=== PATIENT | female | born 1960 | race Hispanic/Latino ===

== ENCOUNTER 2017-02-24 16:06 | Inpatient (IN) | payer MEDICAID ==
--- NOTE | 2017-02-24 17:03 | ED PDOC ---
Arrival/HPI - General Chief Complaint: Shortness Of Breath Time Seen by Provider: 02/24/17 16:13 Historian: Patient - History of Present Illness Narrative History of Present Illness (Text): 02/24/17 16:59 A 56 year old female, whose past medical history includes asthma, COPD, diabetes , hypertension, hyperlipidemia, hypothyroidism and chronic pancreatitis, was sent into the emergency department by PMD for worsening shortness of breath over the past 3 days. Patient notes cough, non-bilious non-bloody vomiting and lightheadedness. Patient reports she was seen last month for asthmatic bronchitis and discharged on steroids. Patient notes a rash on left lower extremity and under left breast but denies any fever, chills, diarrhea, abdominal pain, urinary symptoms, chest pain, headache or any other complaints. PMD: Dr. Hernandez Time/Duration: Other (3 days) Symptom Course: Worsening Quality: Other Context: Home Past Medical History - Provider Review Nursing Documentation Reviewed: Yes - Infectious Disease Hx of Infectious Diseases: None - Tetanus Immunization Tetanus Immunization: Unknown - Cardiac Hx Cardiac Disorders: Yes Hx Hypertension: Yes - Pulmonary Hx Respiratory Disorders: Yes Hx Asthma: Yes Hx Bronchitis: Yes Hx Chronic Obstructive Pulmonary Disease (COPD): Yes - Neurological Hx Neurological Disorder: No - HEENT Hx HEENT Disorder: No - Renal Hx Renal Disorder: No (Pt states she has had problems with her kidneys lately.) - Endocrine/Metabolic Hx Endocrine Disorders: Yes Hx Diabetes Mellitus Type 2: Yes Hx Hyperthyroidism: Yes - Hematological/Oncological Hx Blood Disorders: No - Integumentary Hx Dermatological Disorder: No - Musculoskeletal/Rheumatological Hx Musculoskeletal Disorders: No - Gastrointestinal Hx Gastrointestinal Disorders: Yes (gastroparesis) Hx Pancreatitis: Yes (Chronic) - Genitourinary/Gynecological Hx Genitourinary Disorders: Yes (Fibroids) - Psychiatric Hx Psychophysiologic Disorder: Yes Hx Anxiety: Yes Hx Depression: Yes Hx Substance Use: No - Surgical History Hx Dilation and Curettage: Yes Other/Comment: 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 - Anesthesia Hx Anesthesia: Yes Hx Anesthesia Reactions: Yes Hx Malignant Hyperthermia: No - Suicidal Assessment Feels Threatened In Home Enviroment: No Family/Social History - Physician Review Nursing Documentation Reviewed: Yes Family/Social History: No Known Family HX Smoking Status: Never Smoked Hx Alcohol Use: No Hx Substance Use: No Hx Substance Use Treatment: No Allergies/Home Meds Allergies/Adverse Reactions: Allergies ketorolac tromethamine [From Toradol] Allergy (Mild, Verified 02/24/17 16:12) pruritis amoxicillin Allergy (Verified 02/24/17 16:12) ITCHING EGG Allergy (Verified 02/24/17 16:12) ITCHING gabapentin Allergy (Verified 02/24/17 16:12) ITCHING latex Allergy (Verified 02/24/17 16:12) RASH Sulfa (Sulfonamide Antibiotics) Allergy (Verified 02/24/17 16:12) ITCHING Home Medications: Home Meds Medication Instructions Recorded Confirmed Albuterol 0.083% [Albuterol 0.083% 3 ml IH Q6 PRN 10/31/12 02/24/17 Inhal Peggy (2.5 mg/3 ml) UD] Albuterol HFA [Ventolin HFA 90 0.09 mg IH Q6 PRN 10/31/12 02/24/17 mcg/actuation (8 g)] Insulin Glargine,Hum.rec.anlog 30 unit SC HS 10/31/12 02/24/17 [Lantus] Montelukast [Singulair] 10 mg PO DAILY 10/31/12 02/24/17 PARoxetine [Paxil] 30 mg PO DAILY 10/31/12 02/24/17 Insulin Human NPH/Reg [HumuLIN 30 units SC AC 01/04/13 02/24/17 70/30 (NPH/Reg)] Atenolol [Tenormin] 25 mg PO DAILY 07/23/16 02/24/17 Cetirizine HCl [Zyrtec] 10 mg PO DAILY 07/23/16 02/24/17 Ergocalciferol (Vitamin D2) 50,000 units PO .ONCE PER WEEK 07/23/16 02/24/17 [Vitamin D] Fluticasone/Salmeterol 500/50 1 inh INH BID 07/23/16 02/24/17 [Advair Diskus 500/50] Propylthiouracil 150 mg PO TID 07/23/16 02/24/17 Tiotropium [place] Inhaler 1 inh INH DAILY 07/23/16 02/24/17 [Spiriva Inhalation Handihaler Device] Lipase/Protease/Amylase [Creon Dr 12,000 mg PO TID 01/15/17 02/24/17 12,000 Units Capsule] Tiotropium [Spiriva] 1 cap INH DAILY 01/15/17 02/24/17 Review of Systems - Physician Review All systems were reviewed & negative as marked: Yes - Review of Systems Constitutional: absent: Fevers, Night Sweats Respiratory: SOB, Cough Cardiovascular: absent: Chest Pain Gastrointestinal: Vomiting. absent: Abdominal Pain, Diarrhea Genitourinary Female: absent: Dysuria, Frequency, Hematuria, Urine Output Changes Neurological: Other (lightheadedness). absent: Headache Physical Exam Vital Signs Reviewed: Yes Vital Signs Temp Pulse Resp BP Pulse Ox 02/24/17 19:26 95 H 20 131/52 L 98 02/24/17 17:15 75 18 112/62 98 02/24/17 16:47 97.8 F 75 18 103/66 95 02/24/17 16:21 97.7 F 92 H 19 160/98 H 95 02/24/17 16:15 18 Temperature: Afebrile Blood Pressure: Hypertensive Pulse: Tachycardic Respiratory Rate: Tachypneic Appearance: Positive for: Non-Toxic Pain Distress: None Mental Status: Positive for: Alert and Oriented X 3 - Systems Exam Head: Present: Atraumatic, Normocephalic Pupils: Present: PERRL Mouth: Present: Moist Mucous Membranes Pharnyx: Present: Normal. No: ERYTHEMA, EXUDATE Neck: Present: Normal Range of Motion Respiratory/Chest: Present: Wheezes (diffuse wheezing), Decreased Breath Sounds , Rhonchi (Scattered rhonchi), Tachypneic. No: Accessory Muscle Use Cardiovascular: Present: Regular Rate and Rhythm, Normal S1, S2. No: Murmurs Abdomen: Present: Normal Bowel Sounds. No: Tenderness, Distention, Peritoneal Signs Breast/Axillary: Present: Erythema (under left breast). No: Nipple Discharge, Swelling, Tender to Palpation Upper Extremity: Present: Normal Inspection. No: Cyanosis, Edema Lower Extremity: Present: NORMAL PULSES, Erythema (Mild erythema in left anterior tibial area), Temperature Abnormalties (Warmth noted in left anterior tibial area). No: Edema, CALF TENDERNESS, Tenderness, Swelling, Deformity, Neurovascularly Intact Neurological: Present: GCS=15, CN II-XII Intact, Speech Normal Skin: Present: Warm, Dry, Normal Color. No: Rashes Psychiatric: Present: Alert, Oriented x 3, Normal Insight, Normal Concentration Medical Decision Making ED Course and Treatment: 02/24/17 16:59 Impression: A 56 year old female with shortness of breath. Patient notes cough, vomiting, lightheadedness and rash in left lower extremity and under left breast. On exam , diminished breath sounds ands scattered rhonchi and wheezing, warmth and erythema in left anterior tibial area and under left breast. Differential Diagnosis included but are not limited to: COPD exacerbation vs pneumonia Plan: -- Chest xray -- Labs -- Blood culture -- Urinalysis -- Pepcid, Robitussin, Atrovent, Xopenex, Solumedrol and Zofran -- Reassess and disposition Prior Visits: Notes and results from previous visits were reviewed. Patient last seen in the ED on 01/15/17 for asthma exacerbation. Progress Notes: EKG shows NSR at 77 BPM with normal intervals, normal axis, no ST/T changes. Interpreted by me. 02/24/17 19:32 CXR: nad as read by me. Patient with noted history - receiving nebs and steroids with minimal improvement in the ED thus far - continues to have tachypnea and significant cough - will continue with nebs and observe further in the hospital. Will give abx for copd and add vanco for the cellulitis developing on the LLE. Case discussed with Dr. Hernandez who said to place on the hospitalist service. Case discussed with Dr. Bello. - Lab Interpretations Lab Results: 02/24/17 16:40 02/24/17 16:40 Lab Results 02/24/17 18:25: Urine Color Straw, Urine Appearance Sl cloudy, Urine pH 6.5, Ur Specific [place] <= 1.005, Urine Protein Negative, Urine Glucose (UA) >=1000, Urine Ketones 15 H, Urine Blood Trace-intact H, Urine Nitrate Negative, Urine Bilirubin Negative, Urine Urobilinogen 0.2, Ur Leukocyte Esterase Small H, Urine RBC 0 - 2, Urine WBC 5 - 10, Ur Epithelial Cells 0 - 2, Urine Bacteria Few 02/24/17 18:00: POC Glucose (mg/dL) 287 H 02/24/17 16:40: Sodium 135, Potassium 3.7, Chloride 100, Carbon Dioxide 23, Anion Gap 16, BUN 12, Creatinine 0.5, Est GFR ( Amer) > 60, Est GFR (Non- Af Amer) > 60, Random Glucose 320 H* D, Calcium 10.0, Magnesium 1.8, Total Bilirubin 0.6, AST 18, ALT 29, Alkaline Phosphatase 110, Lactate Dehydrogenase 425, Total Creatine Kinase 69, Troponin I < 0.01, NT-Pro-B Natriuret Pep 54.7, Total Protein 7.3, Albumin 4.3, Globulin 3.0, Albumin/Globulin Ratio 1.4, Lipase 69 02/24/17 16:40: WBC 5.6, RBC 5.00, Hgb 13.8, Hct 39.6, MCV 79.2 L, MCH 27.6, MCHC 34.8, RDW 13.2, Plt Count 186, MPV 11.1 H, Gran % 64.1, Lymph % (Auto) 29.4 , [place] % (Auto) 5.2, Eos % (Auto) 0.9 L, Baso % (Auto) 0.4, Gran # 3.56, Lymph # 1.6, [place] # 0.3, Eos # 0.1, Baso # 0.02 02/24/17 16:40: PT 10.1, INR 0.94, APTT 27.1 I have reviewed the lab results: Yes - RAD Interpretation Radiology Orders: 02/24/17 17:06 CHEST PORTABLE [RAD] Stat - Medication Orders Current Medication Orders: Levofloxacin/Dextrose (Levaquin 750mg) 750 mg in 150 mls @ 100 mls/hr IVPB STAT STA Stop: 02/24/17 20:27 Last Admin: 02/24/17 19:18 Dose: 100 mls/hr Vancomycin HCl 1 gm/ Sodium (Chloride) 250 mls @ 133.333 mls/hr IV STAT STA PRN Reason: Protocol Stop: 02/24/17 21:13 Discontinued Medications Famotidine (Pepcid) 20 mg IVP STAT STA Stop: 02/24/17 17:11 Last Admin: 02/24/17 17:25 Dose: 20 mg Guaifenesin (Robitussin) 400 mg PO ONCE STA Stop: 02/24/17 17:12 Last Admin: 02/24/17 17:25 Dose: 400 mg Sodium Chloride (Sodium Chloride 0.9%) 1,000 mls @ 999 mls/hr IV .Q1H1M STA Stop: 02/24/17 18:44 Last Admin: 02/24/17 18:06 Dose: 999 mls/hr Insulin Human Regular (Humulin R) 6 units IVP ONCE STA Stop: 02/24/17 17:45 Last Admin: 02/24/17 18:05 Dose: 6 units Ipratropium [place] (Atrovent) 0.5 mg IH STAT STA Stop: 02/24/17 17:12 Last Admin: 02/24/17 17:26 Dose: 0.5 mg Ipratropium [place] (Atrovent) 0.5 mg IH STAT STA Stop: 02/24/17 17:12 Last Admin: 02/24/17 17:41 Dose: 0.5 mg Levalbuterol HCl (Xopenex) 1.25 mg IH STAT STA Stop: 02/24/17 17:11 Last Admin: 02/24/17 17:57 Dose: 1.25 mg Levalbuterol HCl (Xopenex) 1.25 mg IH STAT STA Stop: 02/24/17 17:12 Last Admin: 02/24/17 18:05 Dose: 1.25 mg Levalbuterol HCl (Xopenex) 1.25 mg IH STAT STA Stop: 02/24/17 18:57 Last Admin: 02/24/17 19:07 Dose: 1.25 mg Methylprednisolone (Solu-Medrol) 125 mg IVP STAT STA Stop: 02/24/17 17:12 Last Admin: 02/24/17 17:25 Dose: 125 mg Ondansetron HCl (Zofran Inj) 4 mg IVP STAT STA Stop: 02/24/17 17:11 Last Admin: 02/24/17 17:25 Dose: 4 mg - Scribe Statement The provider has reviewed the documentation as recorded by the Michael Zamora Provider Scribe Attestation: All medical record entries made by the Scribe were at my direction and personally dictated by me. I have reviewed the chart and agree that the record accurately reflects my personal performance of the history, physical exam, medical decision making, and the department course for this patient. I have also personally directed, reviewed, and agree with the discharge instructions and disposition. Disposition/Present on Arrival - Present on Arrival Any Indicators Present on Arrival: Yes History of DVT/PE: No History of Uncontrolled Diabetes: Yes Urinary Catheter: No History of Decub. Ulcer: No History Surgical Site Infection Following: None - Disposition Have Diagnosis and Disposition been Completed?: Yes Diagnosis: Uncontrolled diabetes mellitus, Acute exacerbation of COPD with asthma, Cellulitis of left lower leg Disposition: HOSPITALIZED Disposition Time: 19:20 Patient Plan: Observation Condition: FAIR Discharge Instructions (ExitCare): Cellulitis (ED) Referrals: Radha Hernandez MD [Primary Care Provider] - Follow up with primary
[2017-02-24] MEDS ORDERED: Levalbuterol 1.25 MG/3 ML Inhal Soln UD IH STA ×3 (17:10→18:56)
[2017-02-24] MEDS ORDERED: guaiFENesin 200 mg/10 ml Syrup UD PO STA (17:11)
[2017-02-24] MEDS ORDERED: Ipratropium 0.02% Inhal Soln (0.5 mg/2.5 ml) UD IH STA ×2 (17:11)
[2017-02-24 17:14] LABS: ADD MANUAL DIFF? NO
[2017-02-24 17:25] LABS: BASO # 0.02 K/mm3 (0.0-2.0); BASO % 0.4 % (0.0-3.0); EOS # 0.1 (0.0-0.7); EOS % 0.9 % (1.5-5.0); GRAN # 3.56 (1.4-6.5); GRAN % 64.1 % (50.0-68.0); HEMATOCRIT 39.6 % (36.0-48.0); LYMPH # 1.6 (1.2-3.4); LYMPH % 29.4 % (22.0-35.0); MEAN CELL VOLUME 79.2 fL (80.0-105.0); MEAN CORPUSCULAR HEMOGLOBIN 27.6 pg (25.0-35.0); MEAN CORPUSCULAR HGB CONC 34.8 g/dl (31.0-37.0); MEAN PLATELET VOLUME 11.1 fl (7.0-11.0); MONO # 0.3 (0.1-0.6); MONO % 5.2 % (1.0-6.0); PLATELET COUNT 186 10^3/uL (120.0-450.0); RED CELL DISTRIBUTION WIDTH 13.2 % (11.5-14.5); WHITE BLOOD COUNT 5.6 10^3/ul (4.5-11.0)
[2017-02-24 17:35] LABS: INR 0.94 (0.93-1.08); PARTIAL THROMBOPLASTIN TIME 27.1 Seconds (23.7-30.8)
[2017-02-24 17:39] LABS: ALB/GLOB RATIO 1.4 (1.1-1.8); ALKALINE PHOSPHATASE 110 U/L (38-133); ALT/SGPT 29 U/L (7-56); AST/SGOT 18 U/L (15-39); BILIRUBIN,TOTAL 0.6 mg/dL (0.2-1.3); BLOOD UREA NITROGEN 12 mg/dL (7-21); CARBON DIOXIDE 23 mmol/L (21-33); CHLORIDE 100 mmol/L (98-107); GFR AFRICAN-AMERICAN > 60; LIPASE 69 U/L (23-300); MAGNESIUM 1.8 mg/dL (1.7-2.2); POTASSIUM 3.7 mmol/L (3.6-5.0); SODIUM 135 mmol/L (132-148); TOTAL PROTEIN 7.3 g/dL (5.8-8.3)
[2017-02-24 17:44] LABS: GLUCOSE,RANDOM 320 mg/dL (70-110)
[2017-02-24] MEDS ORDERED: Insulin Regular 1 UNITS/0.01 ML ML IVP STA (17:44)
[2017-02-24] MEDS ORDERED: Sodium Chloride 0.9% 1,000 ML IV STA (17:44)
[2017-02-24 17:51] LABS: TROPONIN I < 0.01 ng/mL
[2017-02-24 18:55] LABS: PH,URINE 6.5 (4.7-8.0); URINE BILIRUBIN NEGATIVE (NEGATIVE); URINE BLOOD TRACE-INTACT (NEGATIVE); URINE GLUCOSE (UA) >=1000 mg/dL (NEGATIVE); URINE KETONE 15 mg/dL (NEGATIVE); URINE LEUKOCYTE ESTERASE SMALL Leu/uL (NEGATIVE); URINE PROTEIN NEGATIVE mg/dL (<30 mg/dL); URINE UROBILINOGEN 0.2 E.U./dL (<1 E.U./dL)
[2017-02-24 18:56] LABS: URINE APPEARANCE SL CLOUDY (CLEAR); URINE COLOR STRAW (YELLOW)
[2017-02-24] MEDS ORDERED: levoFLOXacin 750 mg in D5W 750 MG/150 ML BAG IVPB STA (18:58)
[2017-02-24 19:01] LABS: URINE RBC 0 - 2 /hpf (0-2)
[2017-02-24 19:02] LABS: URINE BACTERIA FEW (NEG); URINE EPITHELIAL CELLS 0 - 2 /hpf (0-5)
[2017-02-24] MEDS ORDERED: Oxycodone/Acetaminophen 5/325 mg Tab PO PRN (21:28)
--- NOTE | 2017-02-24 21:57 | CP.PCM.HP ---
<Glory Carballo - Last Filed: 02/24/17 22:06> History of Present Illness - History of Present Illness History of Present Illness: PGY-1 H&P 56 yo female with PMH of HTN, hypercholesterolemia, DM, Asthma, COPD, hypothyroidism, anxiety, depression and chronic pancreatitis present to ED with SOB and cough. Patient reports that her dry cough is chronic secondary to COPD however it has been progressively worsening along with her sob. Patient states that over the past month she has had bronchitis. She previously saw her PMD and was given abx and oral steroids twice before. She states that the medication helped somewhat however after completing the course her symptoms would return. Patient states that she has had previous episodes of similar symptoms and was treated for asthma bronchitis outpatient. Patient states that 3 days ago she also started to have med sternal chest pain associated her cough. She last stress test was a few years ago and it was normal. Patient also reports lightheadedness that began earlier today, she has had similar symptom when her BP was elevated. Patient states that today she had to episodes of vomiting/dry hiving. She states that her left leg become red and swollen, she states that she is prone to cellulitis in that leg. Patient also reports fungal rash under her left breast. PMH: HTN, hypercholesterolemia, DM, Asthma, COPD, hypothyroidism, anxiety, depression and chronic pancreatitis PSH: right parotid gland tumor removal Social hx: denies tobacco, alcohol, ilicits PMD: Dr. Mary Falcon: Dr Daniel Present on Admission - Present on Admission Any Indicators Present on Admission: No Review of Systems - Constitutional Constitutional: Chills, Weight Gain. absent: Fever, Headache - EENT Nose/Mouth/Throat: Nasal Discharge, Sinus Pressure (seasonal allergies). absent : Sore Throat - Cardiovascular Cardiovascular: Chest Pain, Diaphoresis, Dyspnea, Dyspnea on Exertion, Lightheadedness, Palpitations. absent: Edema, Syncope - Respiratory Respiratory: Cough, Dyspnea, Dyspnea on Exertion. absent: Hemoptysis, Wheezing - Gastrointestinal Gastrointestinal: Constipation, Nausea, Vomiting. absent: Abdominal Pain, Diarrhea, Hematemesis, Hematochezia - Genitourinary Genitourinary: absent: Difficulty Urinating, Dysuria, Urinary Incontinence - Musculoskeletal Musculoskeletal: absent: Arthralgias, Muscle Weakness, Myalgias, Numbness, Stiffness - Integumentary Integumentary: Rash, Swelling (left lower leg ). absent: Skin Ulcer, Wounds - Neurological Neurological: absent: Dizziness, Numbness, Headaches, Syncope, Tingling, Weakness - Hematologic/Lymphatic Hematologic: absent: Easy Bleeding, Easy Bruising Past Patient History - Infectious Disease Hx of Infectious Diseases: None - Tetanus Immunizations Tetanus Immunization: Unknown - Past Social History Smoking Status: Never Smoked Alcohol: None Drugs: Denies - CARDIAC Hx Cardiac Disorders: Yes Hx Hypertension: Yes - PULMONARY Hx Respiratory Disorders: Yes Hx Asthma: Yes Hx Bronchitis: Yes Hx Chronic Obstructive Pulmonary Disease (COPD): Yes - NEUROLOGICAL Hx Neurological Disorder: No - HEENT Hx HEENT Problems: No - RENAL Hx Chronic Kidney Disease: No (Pt states she has had problems with her kidneys lately.) - ENDOCRINE/METABOLIC Hx Endocrine Disorders: Yes Hx Diabetes Mellitus Type 2: Yes Hx Hyperthyroidism: Yes - HEMATOLOGICAL/ONCOLOGICAL Hx Blood Disorders: No - INTEGUMENTARY Hx Dermatological Problems: No - MUSCULOSKELETAL/RHEUMATOLOGICAL Hx Musculoskeletal Disorders: No - GASTROINTESTINAL Hx Gastrointestinal Disorders: Yes (gastroparesis) Hx Pancreatitis: Yes (Chronic) - GENITOURINARY/GYNECOLOGICAL Hx Genitourinary Disorders: Yes (Fibroids) - PSYCHIATRIC Hx Psychophysiologic Disorder: Yes Hx Anxiety: Yes Hx Depression: Yes Hx Substance Use: No - SURGICAL HISTORY Hx Dilation and Curettage: Yes Other/Comment: 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 - ANESTHESIA Hx Anesthesia: Yes Hx Anesthesia Reactions: Yes Hx Malignant Hyperthermia: No Meds Allergies/Adverse Reactions: Allergies Allergy/AdvReac Type Severity Reaction Status Date / Time ketorolac tromethamine Allergy Mild pruritis Verified 02/24/17 16:12 [From Toradol] amoxicillin Allergy ITCHING Verified 02/24/17 16:12 EGG Allergy ITCHING Verified 02/24/17 16:12 gabapentin Allergy ITCHING Verified 02/24/17 16:12 latex Allergy RASH Verified 02/24/17 16:12 Sulfa (Sulfonamide Allergy ITCHING Verified 02/24/17 16:12 Antibiotics) Physical Exam - Constitutional Appears: Well, No Acute Distress - Head Exam Head Exam: ATRAUMATIC, NORMOCEPHALIC - Eye Exam Eye Exam: EOMI, Normal appearance - ENT Exam ENT Exam: Mucous Membranes Moist - Respiratory Exam Respiratory Exam: Chest Wall Tenderness, Clear to Auscultation Bilateral, NORMAL BREATHING PATTERN. absent: Rales, Rhonchi, Wheezes, Respiratory Distress Additional comments: dry cough - Cardiovascular Exam Cardiovascular Exam: REGULAR RHYTHM, +S1, +S2. absent: Tachycardia, Diastolic murmur, Systolic Murmur - GI/Abdominal Exam GI & Abdominal Exam: Normal Bowel Sounds, Soft. absent: Distended, Firm, Guarding, Tenderness - Extremities Exam Additional comments: tenderness to palpitation, erythema and swelling at anterior aspect of left lower extremity - Neurological Exam Neurological exam: Alert, Oriented x3 - Skin Skin Exam: Dry, Intact, Normal Color, Warm Results - Vital Signs Recent Vital Signs: Last Vital Signs Temp 97.8 F 02/24/17 16:47 Pulse 95 H 02/24/17 19:26 Resp 20 02/24/17 19:26 BP 131/52 L 02/24/17 19:26 Pulse Ox 98 02/24/17 19:26 - Labs Result Diagrams: 02/24/17 16:40 02/24/17 16:40 Assessment & Plan - Assessment and Plan (Free Text) Assessment: 56 yo female with PMH of HTN, hypercholesterolemia, DM, Asthma, COPD, hypothyroidism, anxiety, depression and chronic pancreatitis present to ED with SOB and cough due to COPD exacerbation, chest pain, possible cellulitis n fungal infection. Plan: 1. COPD exacerbation - solu-medrol q8 - abx Zithromax and Levaquin - Duonebs q4 oliverio and q2 prn - robitussin PRN - cont home medications 2. chest pain - reproducible to palpitation - repeat trops - cont to monitor on remote tele 3. fungal infection - under left breast - clotrimazole cream BID 4. cellulitis of left foot - afebrile without leukocytosis - cont Levaquin and Zithromax 5. DM - cont home insulin - Insulin 30 units AC, insulin glargine 30 units HS, ISSS- med ACHS 6. HTN - cont home medications HCTZ and atenolol - cont to monitor 7. chronic pancreatitis - lipase wnl - cont pancreatic enzymes 8. anxiety - cont home med paxil ppx GI- pepcid DVT- lovenox <Raghav Bello - Last Filed: 02/25/17 06:10> Results - Vital Signs Recent Vital Signs: Last Vital Signs Temp 98.5 F 02/24/17 21:26 Pulse 99 H 02/25/17 06:00 Resp 23 02/24/17 21:26 BP 146/82 02/24/17 21:26 Pulse Ox 98 02/24/17 19:26 - Labs Result Diagrams: 02/24/17 16:40 02/24/17 16:40 Labs: Laboratory Results - last 24 hr 02/24/17 21:54 POC Glucose (mg/dL) 355 H Attending/Attestation - Attestation I have personally seen and examined this patient.: Yes I have fully participated in the care of the patient.: Yes I have reviewed all pertinent clinical information: Yes Notes (Text): 02/25/17 06:08 Patient was seen when she was in the ER. Agree with history physical examination, assessment and plan. This 56 year old white woman with history of diabetic neuropathy, cataract, tinitus, left parotidectomy, facia palsy, sinusitis, hyperthyroidism , being on PtU, COPD, asthma, pneumonia, palpitations, anemia, multiple blood transfusions,UTI's , Hypertension, DM II, hypercholesterolemia, chronic pancreatits, comes in with complaints of sob, chest pain , cough, lightheadedness, palpitations of 2- 3 weeks duration, has swelling ,redness in left leg, has family history of DM, thyroid and lung cancer.
[2017-02-24] MEDS ORDERED: INSULIN GLARGINE HUM REC ANLOG 30 UNIT SC SCH (22:00)
[2017-02-24] MEDS ORDERED: Oxycodone/Acetaminophen 5/325 mg Tab PO SCH (22:00)
[2017-02-24] MEDS ORDERED: Insulin Reg-MEDIUM-Coverage SC SCH (22:00)
[2017-02-24] MEDS: Insulin Detemir 100 units/ml Vial (Levemir) SC SCH (22:02)
[2017-02-24] MEDS: Promethazine 6.25 MG/5 ML CUP PO PRN (22:03)
[2017-02-24] MEDS: MethylPREDNISolone 40 mg Vial IVP SCH (22:03)
--- NOTE | 2017-02-24 22:07 | CARD ---
APPROVED REPORT EKG Measurement Heart [id number] <Conclusion> Normal sinus rhythm Normal ECG
[2017-02-24] MEDS: Albuterol-Ipratrop 3 mg / 0.5 (3 ml) UD IH SCH (23:07)
[2017-02-24 23:13] VITALS: BMI 47.0
[2017-02-24] MEDS: Clotrimazole 1% Cream(30 gm) TOP SCH (23:16)
[2017-02-25] MEDS: Albuterol-Ipratrop 3 mg / 0.5 (3 ml) UD IH PRN ×3 (02:25→22:01)
[2017-02-25] MEDS: guaiFENesin 200 mg/10 ml Syrup UD PO PRN ×3 (02:33→22:11)
[2017-02-25] MEDS ORDERED: Insulin Regular 1 UNITS/0.01 ML ML SC ONE (03:22)
[2017-02-25] MEDS: Albuterol-Ipratrop 3 mg / 0.5 (3 ml) UD IH SCH ×6 (04:28→23:07)
[2017-02-25] MEDS: MethylPREDNISolone 40 mg Vial IVP SCH (05:58)
[2017-02-25] MEDS: Promethazine 6.25 MG/5 ML CUP PO PRN ×2 (05:58→21:52)
[2017-02-25] MEDS ORDERED: Insulin Human NPH/Reg 70/30 Vial(3 ml) SC SCH (07:30)
[2017-02-25 07:39] LABS: ADD MANUAL DIFF? NO
[2017-02-25] MEDS: Budesonide 0.5 mg/2 ml Inhal Susp UD IH SCH ×2 (07:50→19:14)
[2017-02-25] MEDS: Arformoterol 15 mcg/2 ml Inh Sol IH SCH ×2 (07:50→19:14)
[2017-02-25 07:57] LABS: ALB/GLOB RATIO 1.3 (1.1-1.8); ALKALINE PHOSPHATASE 88 U/L (38-133); ALT/SGPT 31 U/L (7-56); AST/SGOT 15 U/L (15-39); BILIRUBIN,TOTAL 0.4 mg/dL (0.2-1.3); BLOOD UREA NITROGEN 11 mg/dL (7-21); CALCIUM 9.4 mg/dL (8.4-10.5); CARBON DIOXIDE 24 mmol/L (21-33); CHLORIDE 102 mmol/L (98-107); GFR AFRICAN-AMERICAN > 60; POTASSIUM 3.7 mmol/L (3.6-5.0); SODIUM 137 mmol/L (132-148); TOTAL PROTEIN 6.6 g/dL (5.8-8.3)
[2017-02-25 07:58] LABS: GRAN % 89.8 % (50.0-68.0); LYMPH # 0.6 (1.2-3.4); LYMPH % 6.9 % (22.0-35.0); MEAN CELL VOLUME 79.4 fL (80.0-105.0); MEAN CORPUSCULAR HEMOGLOBIN 27.7 pg (25.0-35.0); MEAN CORPUSCULAR HGB CONC 34.9 g/dl (31.0-37.0); MEAN PLATELET VOLUME 10.8 fl (7.0-11.0); MONO # 0.3 (0.1-0.6); MONO % 3.3 % (1.0-6.0); PLATELET COUNT 167 10^3/uL (120.0-450.0); RED CELL DISTRIBUTION WIDTH 13.3 % (11.5-14.5); WHITE BLOOD COUNT 8.2 10^3/ul (4.5-11.0)
[2017-02-25 08:02] LABS: GLUCOSE,RANDOM 327 mg/dL (70-110)
--- NOTE | 2017-02-25 08:18 | RAD ---
HISTORY: Shortness of breath COMPARISON: 01/15/2017 FINDINGS: LUNGS: The lungs are well inflated and clear. PLEURA: No significant pleural effusion identified, no pneumothorax apparent. CARDIOVASCULAR: Normal. OSSEOUS STRUCTURES: No significant abnormalities. VISUALIZED UPPER ABDOMEN: Normal. OTHER FINDINGS: None. IMPRESSION: No active pulmonary disease.
[2017-02-25 08:19] LABS: TROPONIN I < 0.01 ng/mL
[2017-02-25] MEDS ORDERED: Fluticasone-Salmeterol 500-50mcg Diskus INH SCH (10:00)
[2017-02-25] MEDS ORDERED: Tiotropium 18 mcg Cap For Inhalation INH SCH (10:00)
[2017-02-25] MEDS ORDERED: HYDROCHLOROTHIAZIDE 12.5 MG PO SCH (10:00)
[2017-02-25] MEDS ORDERED: Azithromycin 500MG/NS 250ml 500 MG/250 ML BAG IVPB SCH (10:00)
[2017-02-25] MEDS: Enoxaparin 40 mg Syringe SC SCH (10:28)
[2017-02-25] MEDS: Insulin Detemir 100 units/ml Vial (Levemir) SC SCH ×2 (10:29→21:39)
[2017-02-25] MEDS: LIPASE PO SCH ×3 (10:30→17:14)
[2017-02-25] MEDS: levoFLOXacin 750 mg in D5W 750 MG/150 ML BAG IVPB SCH (10:30)
[2017-02-25] MEDS: AMYLASE PO SCH ×3 (10:30→17:14)
[2017-02-25] MEDS: guaiFENesin-DM 600-30 mg ER Tab PO SCH ×2 (10:30→17:08)
[2017-02-25] MEDS: PROTEASE PO SCH ×3 (10:30→17:14)
[2017-02-25] MEDS: Clotrimazole 1% Cream(30 gm) TOP SCH ×2 (10:30→17:08)
[2017-02-25] MEDS: [UNRECOGNIZED DRUG - OTHER] PO SCH ×3 (10:30→17:14)
--- NOTE | 2017-02-25 11:36 | CP.PCM.PN ---
<JimboMelvi - Last Filed: 02/25/17 16:24> Subjective - Date & Time of Evaluation Date of Evaluation: 02/25/17 Time of Evaluation: 08:50 - Subjective Subjective: Pt seen and evaluated at bedside. Reports no change in SOB but no chest pain. Denies N/V, abd pain, urinary symptoms. Afebrile overnight. Objective - Vital Signs/Intake and Output Vital Signs (last 24 hours): Temp Pulse Resp BP Pulse Ox 98 F 98 H 19 141/77 98 02/25/17 07:44 02/25/17 07:44 02/25/17 07:44 02/25/17 07:44 02/25/17 07:44 - Medications Medications: Current Medications Albuterol/Ipratropium (Duoneb 3 Mg/0.5 Mg (3 Ml) Ud) 3 ml IH Q2 PRN PRN Reason: Shortness of Breath Last Admin: 02/25/17 02:25 Dose: 3 ml Albuterol/Ipratropium (Duoneb 3 Mg/0.5 Mg (3 Ml) Ud) 3 ml IH [id number] [facility] Last Admin: 02/25/17 11:07 Dose: 3 ml Arformoterol Tartrate (Brovana) 15 mcg IH [id number] [facility] Last Admin: 02/25/17 07:50 Dose: 15 mcg Atenolol (Tenormin) 25 mg PO DAILY [facility] Last Admin: 02/25/17 10:29 Dose: 25 mg Atorvastatin Calcium (Lipitor) 20 mg PO DIN [facility] Budesonide (Pulmicort Respules) 1 mg IH [id number] [facility] Last Admin: 02/25/17 07:50 Dose: 1 mg Clotrimazole (Lotrimin 1%) 1 gm TOP BID [facility] Last Admin: 02/25/17 10:30 Dose: 1 gm Enoxaparin Sodium (Lovenox) 40 mg SC DAILY [facility] PRN Reason: Protocol Last Admin: 02/25/17 10:28 Dose: 40 mg Ergocalciferol (Drisdol 50,000 Intl Units Cap) 1 cap PO FRI OLIVERIO Famotidine (Pepcid) 20 mg PO 1000,2200 [facility] Last Admin: 02/25/17 10:30 Dose: 20 mg Guaifenesin (Robitussin) 200 mg PO Q4H PRN PRN Reason: Cough and congestion Last Admin: 02/25/17 02:33 Dose: 200 mg Guaifenesin/Dextromethorphan (Mucinex-Dm 600-30 Mg) 1 tab PO BID [facility] Last Admin: 02/25/17 10:30 Dose: 1 tab Hydrochlorothiazide (Microzide) 12.5 mg PO DAILY [facility] Last Admin: 02/25/17 10:30 Dose: 12.5 mg Levofloxacin/Dextrose (Levaquin 750mg) 750 mg in 150 mls @ 100 mls/hr IVPB DAILY [facility] Last Admin: 02/25/17 10:30 Dose: 100 mls/hr Insulin Detemir (Levemir) 15 unit SC AMHS [facility] Last Admin: 02/25/17 10:29 Dose: 15 unit Insulin Human Regular (Humulin R High) 0 units SC ACHS [facility] PRN Reason: Protocol Loratadine (Claritin) 10 mg PO DAILY [facility] Last Admin: 02/25/17 10:29 Dose: 10 mg Methylprednisolone (Solu-Medrol) 40 mg IVP DAILY [facility] Montelukast Sodium (Singulair) 10 mg PO DAILY [facility] Last Admin: 02/25/17 10:29 Dose: 10 mg Non-Formulary Medication (Lipase/Protease/Amylase [Creon Dr 12,000 Units Capsule ]) 12,000 mg PO TID [facility] Last Admin: 02/25/17 10:30 Dose: Not Given Oxycodone/Acetaminophen (Percocet 5/325 Mg Tab) 1 tab PO Q8 PRN PRN Reason: Pain, severe (8-10) Stop: 02/27/17 22:01 Paroxetine HCl (Paxil) 30 mg PO DAILY [facility] Last Admin: 02/25/17 10:38 Dose: 30 mg Promethazine HCl (Phenergan Syrup) 6.25 mg PO TID PRN PRN Reason: Cough Last Admin: 02/25/17 05:58 Dose: 6.25 mg Propylthiouracil (Propylthiouracil) 150 mg PO TID [facility] Last Admin: 02/25/17 10:38 Dose: 150 mg Tiotropium [place] (Spiriva) 1,000 mcg INH DAILY [facility] Last Admin: 02/25/17 10:39 Dose: 1,000 mcg - Labs Labs: PT 10.1 Seconds (9.9-11.8) 02/24/17 16:40 INR 0.94 (0.93-1.08) 02/24/17 16:40 APTT 27.1 Seconds (23.7-30.8) 02/24/17 16:40 - Constitutional Appears: Non-toxic, No Acute Distress - Head Exam Head Exam: ATRAUMATIC, NORMOCEPHALIC - Eye Exam Eye Exam: EOMI, Normal appearance - Respiratory Exam Respiratory Exam: Clear to Ausculation Bilateral. absent: Wheezes - Cardiovascular Exam Cardiovascular Exam: Tachycardia, +S1, +S2 - GI/Abdominal Exam GI & Abdominal Exam: Soft. absent: Tenderness - Exam External exam: absent: Ecchymosis, Erythema - Extremities Exam Extremities Exam: Pedal Edema. absent: Tenderness - Neurological Exam Neurological Exam: Alert, Awake, Oriented x3 - Skin Skin Exam: Normal Color, Warm Additional comments: Erythema on Left chest and L LE Assessment and Plan - Assessment and Plan (Free Text) Plan: 56 yo female with PMH of HTN, hypercholesterolemia, DM, Asthma, COPD, hypothyroidism, anxiety, depression and chronic pancreatitis present to ED with SOB and cough due to COPD exacerbation, chest pain, possible cellulitis n fungal infection. Plan: 1. COPD exacerbation - solu-medrol 40 qd - abx Levaquin - Duonebs q4 oliverio and q2 prn - robitussin PRN - cont home medications 2. chest pain - reproducible to palpitation - troponin negative x 2 - cont to monitor on remote tele -ECHO pending 3. fungal infection - under left breast - clotrimazole cream BID 4. cellulitis of left foot - afebrile without leukocytosis - cont Levaquin -venous Doppler ordered 5. DM - cont home insulin - Insulin 30 units AC, insulin glargine 30 units HS, ISSS- high ACHS 6. HTN - cont home medications HCTZ and atenolol - cont to monitor 7. chronic pancreatitis - lipase wnl - cont pancreatic enzymes 8. anxiety - cont home med paxil ppx GI- pepcid DVT- lovenox <Maureen NEELY,Marla - Last Filed: 02/25/17 17:55> Objective - Vital Signs/Intake and Output Vital Signs (last 24 hours): Temp Pulse Resp BP Pulse Ox 98.4 F 89 20 143/82 93 L 02/25/17 16:45 02/25/17 16:45 02/25/17 16:45 02/25/17 16:45 02/25/17 16:45 Intake and Output: 02/25/17 02/25/17 06:59 18:59 Intake Total 700 Balance 700 - Medications Medications: Current Medications Albuterol/Ipratropium (Duoneb 3 Mg/0.5 Mg (3 Ml) Ud) 3 ml IH Q2 PRN PRN Reason: Shortness of Breath Last Admin: 02/25/17 17:32 Dose: 3 ml Albuterol/Ipratropium (Duoneb 3 Mg/0.5 Mg (3 Ml) Ud) 3 ml IH [id number] [facility] Last Admin: 02/25/17 15:53 Dose: 3 ml Arformoterol Tartrate (Brovana) 15 mcg IH [id number] [facility] Last Admin: 02/25/17 07:50 Dose: 15 mcg Atenolol (Tenormin) 25 mg PO DAILY [facility] Last Admin: 02/25/17 10:29 Dose: 25 mg Atorvastatin Calcium (Lipitor) 20 mg PO DIN [facility] Last Admin: 02/25/17 17:08 Dose: 20 mg Budesonide (Pulmicort Respules) 1 mg IH [id number] [facility] Last Admin: 02/25/17 07:50 Dose: 1 mg Clotrimazole (Lotrimin 1%) 1 gm TOP BID [facility] Last Admin: 02/25/17 17:08 Dose: 1 gm Enoxaparin Sodium (Lovenox) 40 mg SC DAILY [facility] PRN Reason: Protocol Last Admin: 02/25/17 10:28 Dose: 40 mg Ergocalciferol (Drisdol 50,000 Intl Units Cap) 1 cap PO FRI [facility] Famotidine (Pepcid) 20 mg PO 1000,2200 [facility] Last Admin: 02/25/17 10:30 Dose: 20 mg Guaifenesin (Robitussin) 200 mg PO Q4H PRN PRN Reason: Cough and congestion Last Admin: 02/25/17 17:25 Dose: 200 mg Guaifenesin/Dextromethorphan (Mucinex-Dm 600-30 Mg) 1 tab PO BID [facility] Last Admin: 02/25/17 17:08 Dose: 1 tab Hydrochlorothiazide (Microzide) 12.5 mg PO DAILY [facility] Last Admin: 02/25/17 10:30 Dose: 12.5 mg Levofloxacin/Dextrose (Levaquin 750mg) 750 mg in 150 mls @ 100 mls/hr IVPB DAILY [facility] Last Admin: 02/25/17 10:30 Dose: 100 mls/hr Insulin Detemir (Levemir) 15 unit SC AMHS [facility] Last Admin: 02/25/17 10:29 Dose: 15 unit Insulin Human Regular (Humulin R High) [address] [facility] PRN Reason: Protocol Last Admin: 02/25/17 17:08 Dose: 10 units Loratadine (Claritin) 10 mg PO DAILY [facility] Last Admin: 02/25/17 10:29 Dose: 10 mg Methylprednisolone (Solu-Medrol) 40 mg IVP DAILY [facility] Montelukast Sodium (Singulair) 10 mg PO DAILY [facility] Last Admin: 02/25/17 10:29 Dose: 10 mg Non-Formulary Medication (Lipase/Protease/Amylase [Creon Dr 12,000 Units Capsule ]) 12,000 mg PO TID [facility] Last Admin: 02/25/17 17:14 Dose: Not Given Oxycodone/Acetaminophen (Percocet 5/325 Mg Tab) 1 tab PO Q8 PRN PRN Reason: Pain, severe (8-10) Stop: 02/27/17 22:01 Paroxetine HCl (Paxil) 30 mg PO DAILY [facility] Last Admin: 02/25/17 10:38 Dose: 30 mg Promethazine HCl (Phenergan Syrup) 6.25 mg PO TID PRN PRN Reason: Cough Last Admin: 02/25/17 05:58 Dose: 6.25 mg Propylthiouracil (Propylthiouracil) 150 mg PO TID [facility] Last Admin: 02/25/17 17:09 Dose: Not Given Tiotropium [place] (Spiriva) 1,000 mcg INH DAILY [facility] Last Admin: 02/25/17 10:39 Dose: 1,000 mcg - Labs Labs: PT 10.1 Seconds (9.9-11.8) 02/24/17 16:40 INR 0.94 (0.93-1.08) 02/24/17 16:40 APTT 27.1 Seconds (23.7-30.8) 02/24/17 16:40 Attending/Attestation - Attestation I have personally seen and examined this patient.: Yes I have fully participated in the care of the patient.: Yes I have reviewed all pertinent clinical information, including history, physical exam and plan: Yes Notes (Text): 02/25/17 17:52 Patient was seen and examined with medical collector .Agreed with resident assessment and plan. 56 yo female with PMH of HTN, hyperlipidemia , DM, Asthma, COPD, hypothyroidism , anxiety, depression and chronic pancreatitis was admitted with worsening cough , dyspnea and whezzing due to COPD exacerbation, failed out patient treatment for COPD, is feeling better today, will decrease metylprednisolon dose to 40 mg IVPB daily.Patient blood sugar is high due to steroid.Patient also has leg edema, will get 2D echo to rule out Pulmonary HTN. Management plan was discussed in detail with patient Education was provided.
[2017-02-25] MEDS: Insulin Reg-HIGH-Coverage SC SCH ×2 (12:14→17:08)
[2017-02-25] MEDS ORDERED: Non Formulary Medication (Simvastatin [Simvastatin] 40 MG) PO SCH (16:30)
--- NOTE | 2017-02-25 18:33 | US ---
HISTORY: Leg pain and swelling. Evaluate for DVT PHYSICIAN(S): Hamlet Cook MD. TECHNIQUE: Duplex sonography and color-flow Doppler with graded compression were used to evaluate the deep venous systems of both lower extremities. FINDINGS: The visualized deep venous systems of both lower extremities are sonographically normal and compressible. Normal wave forms and augmentation are seen. There is no sonographic evidence for deep venous thrombosis in the visualized segments of both lower extremities. IMPRESSION: No sonographic evidence for deep venous thrombosis in the visualized segments of both lower extremities.
[2017-02-26] MEDS: Albuterol-Ipratrop 3 mg / 0.5 (3 ml) UD IH PRN (01:04)
[2017-02-26] MEDS: Insulin Reg-HIGH-Coverage SC SCH ×6 (01:18→21:54)
[2017-02-26] MEDS: guaiFENesin 200 mg/10 ml Syrup UD PO PRN (02:00)
[2017-02-26] MEDS: Albuterol-Ipratrop 3 mg / 0.5 (3 ml) UD IH SCH ×5 (03:30→19:36)
[2017-02-26] MEDS: Promethazine 6.25 MG/5 ML CUP PO PRN (06:14)
[2017-02-26] MEDS: Arformoterol 15 mcg/2 ml Inh Sol IH SCH ×2 (07:04→19:35)
[2017-02-26] MEDS: Budesonide 0.5 mg/2 ml Inhal Susp UD IH SCH ×2 (07:04→19:36)
[2017-02-26 07:49] LABS: ADD MANUAL DIFF? NO
[2017-02-26 07:52] LABS: BASO # 0.01 K/mm3 (0.0-2.0); BASO % 0.1 % (0.0-3.0); EOS # 0.1 (0.0-0.7); EOS % 0.7 % (1.5-5.0); GRAN # 5.15 (1.4-6.5); GRAN % 67.4 % (50.0-68.0); HEMATOCRIT 35.2 % (36.0-48.0); LYMPH # 2.1 (1.2-3.4); LYMPH % 27.7 % (22.0-35.0); MEAN CELL VOLUME 81.5 fL (80.0-105.0); MEAN CORPUSCULAR HEMOGLOBIN 27.3 pg (25.0-35.0); MEAN CORPUSCULAR HGB CONC 33.5 g/dl (31.0-37.0); MEAN PLATELET VOLUME 10.9 fl (7.0-11.0); MONO # 0.3 (0.1-0.6); MONO % 4.1 % (1.0-6.0); PLATELET COUNT 154 10^3/uL (120.0-450.0); RED CELL DISTRIBUTION WIDTH 13.5 % (11.5-14.5); WHITE BLOOD COUNT 7.6 10^3/ul (4.5-11.0)
[2017-02-26 08:07] LABS: ALB/GLOB RATIO 1.4 (1.1-1.8); ALKALINE PHOSPHATASE 81 U/L (38-133); ALT/SGPT 24 U/L (7-56); AST/SGOT 17 U/L (15-39); BILIRUBIN,TOTAL 0.6 mg/dL (0.2-1.3); BLOOD UREA NITROGEN 17 mg/dL (7-21); CALCIUM 9.4 mg/dL (8.4-10.5); CARBON DIOXIDE 27 mmol/L (21-33); CHLORIDE 101 mmol/L (98-107); GFR AFRICAN-AMERICAN > 60; GLUCOSE,RANDOM 292 mg/dL (70-110); SODIUM 137 mmol/L (132-148); TOTAL PROTEIN 6.2 g/dL (5.8-8.3)
[2017-02-26] MEDS ORDERED: Potassium Chloride 20 mEq ER Tab PO ONE (09:22)
[2017-02-26 09:47] LABS: MAGNESIUM 1.9 mg/dL (1.7-2.2); PHOSPHOROUS 4.2 mg/dL (2.5-4.5)
[2017-02-26] MEDS: levoFLOXacin 750 mg in D5W 750 MG/150 ML BAG IVPB SCH (09:59)
[2017-02-26] MEDS: Insulin Detemir 100 units/ml Vial (Levemir) SC SCH ×2 (09:59→21:54)
[2017-02-26] MEDS: [UNRECOGNIZED DRUG - OTHER] PO SCH ×4 (10:00→17:32)
[2017-02-26] MEDS: AMYLASE PO SCH ×4 (10:00→17:32)
[2017-02-26] MEDS: LIPASE PO SCH ×4 (10:00→17:32)
[2017-02-26] MEDS: Clotrimazole 1% Cream(30 gm) TOP SCH ×2 (10:00→17:39)
[2017-02-26] MEDS ORDERED: Ergocalciferol 50,000 Intl Units Cap PO SCH (10:00)
[2017-02-26] MEDS: PROTEASE PO SCH ×4 (10:00→17:32)
[2017-02-26] MEDS: Enoxaparin 40 mg Syringe SC SCH (10:00)
[2017-02-26] MEDS: guaiFENesin-DM 600-30 mg ER Tab PO SCH ×2 (10:01→17:26)
[2017-02-26] MEDS: MethylPREDNISolone 40 mg Vial IVP SCH (10:02)
[2017-02-26] MEDS: Tiotropium 18 mcg Cap For Inhalation INH SCH (10:09)
--- NOTE | 2017-02-26 12:02 | CP.PCM.PN ---
<JimboMelvi - Last Filed: 02/26/17 16:35> Subjective - Date & Time of Evaluation Date of Evaluation: 02/26/17 Time of Evaluation: 07:40 - Subjective Subjective: Pt seen and evaluated at bedside. Pt had prolonged coughing episode overnight. Denies n/v, abdominal pain. Afebrile overnight. Objective - Vital Signs/Intake and Output Vital Signs (last 24 hours): Temp Pulse Resp BP Pulse Ox 97.7 F 79 20 157/86 H 96 02/26/17 06:00 02/26/17 06:00 02/26/17 06:00 02/26/17 06:00 02/26/17 06:00 Intake and Output: 02/26/17 02/26/17 06:59 18:59 Intake Total 480 Balance 480 - Medications Medications: Current Medications Albuterol/Ipratropium (Duoneb 3 Mg/0.5 Mg (3 Ml) Ud) 3 ml IH Q2 PRN PRN Reason: Shortness of Breath Last Admin: 02/26/17 01:04 Dose: 3 ml Albuterol/Ipratropium (Duoneb 3 Mg/0.5 Mg (3 Ml) Ud) 3 ml IH [id number] [facility] Last Admin: 02/26/17 11:20 Dose: 3 ml Arformoterol Tartrate (Brovana) 15 mcg IH [id number] [facility] Last Admin: 02/26/17 07:04 Dose: 15 mcg Atenolol (Tenormin) 25 mg PO DAILY [facility] Last Admin: 02/26/17 10:02 Dose: 25 mg Atorvastatin Calcium (Lipitor) 20 mg PO DIN [facility] Last Admin: 02/25/17 17:08 Dose: 20 mg Benzonatate (Tessalon Perles) 100 mg PO TID [facility] Budesonide (Pulmicort Respules) 1 mg IH [id number] [facility] Last Admin: 02/26/17 07:04 Dose: 0.5 mg Clotrimazole (Lotrimin 1%) 1 gm TOP BID [facility] Last Admin: 02/26/17 10:00 Dose: 1 gm Enoxaparin Sodium (Lovenox) 40 mg SC DAILY [facility] PRN Reason: Protocol Last Admin: 02/26/17 10:00 Dose: 40 mg Ergocalciferol (Drisdol 50,000 Intl Units Cap) 1 cap PO FRI [facility] Last Admin: 02/26/17 09:58 Dose: 1 cap Famotidine (Pepcid) 20 mg PO 1000,2200 [facility] Last Admin: 02/26/17 10:01 Dose: 20 mg Guaifenesin/Dextromethorphan (Mucinex-Dm 600-30 Mg) 1 tab PO BID [facility] Last Admin: 02/26/17 10:01 Dose: 1 tab Hydrochlorothiazide (Microzide) 12.5 mg PO DAILY [facility] Last Admin: 02/26/17 10:00 Dose: 12.5 mg Levofloxacin/Dextrose (Levaquin 750mg) 750 mg in 150 mls @ 100 mls/hr IVPB DAILY [facility] Last Admin: 02/26/17 09:59 Dose: 100 mls/hr Insulin Detemir (Levemir) 15 unit SC AMHS [facility] Last Admin: 02/26/17 09:59 Dose: 15 unit Insulin Human Regular (Humulin R High) 0 units SC ACHS [facility] PRN Reason: Protocol Last Admin: 02/26/17 08:31 Dose: 7 units Loratadine (Claritin) 10 mg PO DAILY [facility] Last Admin: 02/26/17 09:58 Dose: 10 mg Methylprednisolone (Solu-Medrol) 40 mg IVP DAILY [facility] Last Admin: 02/26/17 10:02 Dose: 40 mg Methylprednisolone (Solu-Medrol) 40 mg IVP ONCE ONE Stop: 02/26/17 16:01 Montelukast Sodium (Singulair) 10 mg PO DAILY [facility] Last Admin: 02/26/17 10:02 Dose: 10 mg Non-Formulary Medication (Lipase/Protease/Amylase [Creon Dr 12,000 Units Capsule ]) 12,000 mg PO TID [facility] Last Admin: 02/26/17 10:00 Dose: Not Given Oxycodone/Acetaminophen (Percocet 5/325 Mg Tab) 1 tab PO Q8 PRN PRN Reason: Pain, severe (8-10) Stop: 02/27/17 22:01 Paroxetine HCl (Paxil) 30 mg PO DAILY [facility] Last Admin: 02/26/17 10:01 Dose: 30 mg Propylthiouracil (Propylthiouracil) 150 mg PO TID [facility] Last Admin: 02/26/17 10:10 Dose: Not Given Tiotropium [place] (Spiriva) 18 mcg INH DAILY [facility] Last Admin: 02/26/17 10:09 Dose: 18 mcg - Labs Labs: 02/26/17 07:00 02/26/17 07:00 PT 10.1 Seconds (9.9-11.8) 02/24/17 16:40 INR 0.94 (0.93-1.08) 02/24/17 16:40 APTT 27.1 Seconds (23.7-30.8) 02/24/17 16:40 - Constitutional Appears: Non-toxic, No Acute Distress - Head Exam Head Exam: ATRAUMATIC, NORMOCEPHALIC - Eye Exam Eye Exam: EOMI, Normal appearance - ENT Exam ENT Exam: Mucous Membranes Moist Additional comments: enlarged adenoids - Respiratory Exam Respiratory Exam: Clear to Ausculation Bilateral, NORMAL BREATHING PATTERN - Cardiovascular Exam Cardiovascular Exam: +S1, +S2. absent: Bradycardia - GI/Abdominal Exam GI & Abdominal Exam: Soft. absent: Tenderness - Exam External exam: absent: Ecchymosis, Erythema - Back Exam Back Exam: absent: CVA tenderness (L), CVA tenderness (R) - Neurological Exam Neurological Exam: Alert, Awake - Skin Skin Exam: Intact, Normal Color Assessment and Plan - Assessment and Plan (Free Text) Plan: 56 yo female with PMH of HTN, hypercholesterolemia, DM, Asthma, COPD, hypothyroidism, anxiety, depression and chronic pancreatitis present to ED with SOB and cough due to COPD exacerbation, chest pain Plan: 1. COPD exacerbation - solu-medrol IV 40mg qd - abx Levaquin - Duonebs q4 oliverio and q2 prn - mucinex and tessalon perles - cont home medications 2. chest pain - reproducible to palpitation - troponin negative x 2 - cont to monitor on remote tele -ECHO pending 3. fungal infection - under left breast - clotrimazole cream BID 4. cellulitis of left foot - afebrile without leukocytosis - cont Levaquin -venous Doppler for LE is negative 5. DM - cont home insulin - insulin levemir 15 units AMHS, ISSS- high ACHS 6. HTN - cont home medications HCTZ and atenolol - cont to monitor 7. chronic pancreatitis - lipase wnl - cont pancreatic enzymes 8. anxiety - cont home med paxil ppx GI- pepcid DVT- lovenox zofran prn <Irfan MD,Mohammad - Last Filed: 02/26/17 17:10> Objective - Vital Signs/Intake and Output Vital Signs (last 24 hours): Temp Pulse Resp BP Pulse Ox 97.7 F 79 20 157/86 H 96 02/26/17 06:00 02/26/17 06:00 02/26/17 06:00 02/26/17 06:00 02/26/17 06:00 Intake and Output: 02/26/17 02/26/17 06:59 18:59 Intake Total 480 Balance 480 - Medications Medications: Current Medications Albuterol/Ipratropium (Duoneb 3 Mg/0.5 Mg (3 Ml) Ud) 3 ml IH Q2 PRN PRN Reason: Shortness of Breath Last Admin: 02/26/17 01:04 Dose: 3 ml Albuterol/Ipratropium (Duoneb 3 Mg/0.5 Mg (3 Ml) Ud) 3 ml IH [id number] [facility] Last Admin: 02/26/17 16:07 Dose: 3 ml Arformoterol Tartrate (Brovana) 15 mcg IH [id number] [facility] Last Admin: 02/26/17 07:04 Dose: 15 mcg Atenolol (Tenormin) 25 mg PO DAILY [facility] Last Admin: 02/26/17 10:02 Dose: 25 mg Atorvastatin Calcium (Lipitor) 20 mg PO DIN [facility] Last Admin: 02/25/17 17:08 Dose: 20 mg Benzonatate (Tessalon Perles) 100 mg PO TID [facility] Last Admin: 02/26/17 13:00 Dose: 100 mg Budesonide (Pulmicort Respules) 1 mg IH [id number] [facility] Last Admin: 02/26/17 07:04 Dose: 0.5 mg Clotrimazole (Lotrimin 1%) 1 gm TOP BID [facility] Last Admin: 02/26/17 10:00 Dose: 1 gm Enoxaparin Sodium (Lovenox) 40 mg SC DAILY [facility] PRN Reason: Protocol Last Admin: 02/26/17 10:00 Dose: 40 mg Ergocalciferol (Drisdol 50,000 Intl Units Cap) 1 cap PO FRI [facility] Last Admin: 02/26/17 09:58 Dose: 1 cap Famotidine (Pepcid) 20 mg PO 1000,2200 [facility] Last Admin: 02/26/17 10:01 Dose: 20 mg Guaifenesin/Dextromethorphan (Mucinex-Dm 600-30 Mg) 1 tab PO BID [facility] Last Admin: 02/26/17 10:01 Dose: 1 tab Hydrochlorothiazide (Microzide) 12.5 mg PO DAILY [facility] Last Admin: 02/26/17 10:00 Dose: 12.5 mg Levofloxacin/Dextrose (Levaquin 750mg) 750 mg in 150 mls @ 100 mls/hr IVPB DAILY [facility] Last Admin: 02/26/17 09:59 Dose: 100 mls/hr Insulin Detemir (Levemir) 15 unit SC AMHS [facility] Last Admin: 02/26/17 09:59 Dose: 15 unit Insulin Human Regular (Humulin R High) 0 units SC ACHS [facility] PRN Reason: Protocol Last Admin: 02/26/17 12:36 Dose: 10 units Loratadine (Claritin) 10 mg PO DAILY [facility] Last Admin: 02/26/17 09:58 Dose: 10 mg Methylprednisolone (Solu-Medrol) 40 mg IVP DAILY [facility] Last Admin: 02/26/17 10:02 Dose: 40 mg Montelukast Sodium (Singulair) 10 mg PO DAILY [facility] Last Admin: 02/26/17 10:02 Dose: 10 mg Non-Formulary Medication (Lipase/Protease/Amylase [Creon Dr 12,000 Units Capsule ]) 12,000 mg PO TID [facility] Last Admin: 02/26/17 15:56 Dose: Not Given Ondansetron HCl (Zofran Inj) 4 mg IVP Q6H PRN PRN Reason: Nausea/Vomiting Last Admin: 02/26/17 15:56 Dose: 4 mg Oxycodone/Acetaminophen (Percocet 5/325 Mg Tab) 1 tab PO Q8 PRN PRN Reason: Pain, severe (8-10) Stop: 02/27/17 22:01 Paroxetine HCl (Paxil) 30 mg PO DAILY [facility] Last Admin: 02/26/17 10:01 Dose: 30 mg Propylthiouracil (Propylthiouracil) 150 mg PO TID [facility] Last Admin: 02/26/17 13:17 Dose: Not Given Tiotropium [place] (Spiriva) 18 mcg INH DAILY [facility] Last Admin: 02/26/17 10:09 Dose: 18 mcg - Labs Labs: 02/26/17 07:00 02/26/17 07:00 PT 10.1 Seconds (9.9-11.8) 02/24/17 16:40 INR 0.94 (0.93-1.08) 02/24/17 16:40 APTT 27.1 Seconds (23.7-30.8) 02/24/17 16:40 Attending/Attestation - Attestation I have personally seen and examined this patient.: Yes I have fully participated in the care of the patient.: Yes I have reviewed all pertinent clinical information, including history, physical exam and plan: Yes Notes (Text): 02/26/17 17:08 Patient was seen and examined with medical physiologist .Agreed with resident assessment and plan. 56 yo female with PMH of HTN, hyperlipidemia , DM, Asthma, COPD, hypothyroidism , anxiety, depression and chronic pancreatitis was admitted with worsening cough , dyspnea and wheezing due to COPD exacerbation, failed outpatient treatment for COPD, Patient is slowly improving, we will continue Neb/Steroid and antibiotics.Patient has leg edema, Echo is ordered for evaluation of Pulmonary HTN.Patient will need evaluation for home oxygen prior to discharge. Management plan was discussed in detail with patient Education was provided.
[2017-02-26] MEDS ORDERED: MethylPREDNISolone 40 mg Vial IVP ONE (16:00)
--- NOTE | 2017-02-26 18:46 | CARD ---
APPROVED REPORT EXAM: Two-dimensional and M-mode echocardiogram with Doppler and color Doppler. 2D DIMENSIONS IVSd1.0 (0.7-1.1cm)LVDd5.1 (3.9-5.9cm) PWd1.0 (0.7-1.1cm)LVDs3.6 (2.5-4.0cm) FS (%) 29.8 %LVEF (%)56.9 (>50%) M-Mode DIMENSIONS Left Atrium (MM)4.10 (2.5-4.0cm)Aortic Root3.30 (2.2-3.7cm) Aortic Cusp Exc.1.90 (1.5-2.0cm) Aortic Valve AoV Peak Fbbwlxay168.0cm/sAoV VTI49.2cmAO Peak GR.18mmHg LVOT Peak Shmdjkmu730.0cm/sLVOT VTI43.10cmAO Mean GR.10mmHg Mitral Valve MV E Nktcihae122.0cm/sMV DECEL OEOD205lyMK A Luucjvse54.7cm/s E/A ratio1.1 TDI Lateral E' Peak V8.48cm/sMedial E' Peak V5.85cm/sE/Lateral E'13.0 E/Medial E'18.8 Tricuspid Valve TR Peak Mjrumbzt994zc/sRAP [id number] Peak Gr.34mmHg [id number] LEFT VENTRICLE The left ventricle is normal size. There is normal left ventricular wall thickness. The left ventricular function is normal. The left ventricular ejection fraction is within the normal range. There is normal LV segmental wall motion. Transmitral Doppler flow pattern is Grade I-abnormal relaxation pattern. RIGHT VENTRICLE The right ventricle is borderline dilated. Systolic function is borderline reduced. ATRIA The left atrium is borderline dilated. The right atrium is borderline dilated. AORTIC VALVE The aortic valve is mildly thickened. MITRAL VALVE The mitral valve is mildly thickened. Mitral regurgitation is mild to moderate. The mitral regurgitant jet is eccentrically directed. TRICUSPID VALVE There is mild tricuspid regurgitation. There is mild pulmonary hypertension. <Conclusion> The left ventricle is normal size. There is normal left ventricular wall thickness. The left ventricular function is normal. The left ventricular ejection fraction is within the normal range. There is normal LV segmental wall motion. Transmitral Doppler flow pattern is Grade I-abnormal relaxation pattern. Mitral regurgitation is mild to moderate. There is mild tricuspid regurgitation. There is mild pulmonary hypertension.
--- NOTE | 2017-02-26 19:06 | CON ---
DATE: 02/26/2017 CHIEF COMPLAINT: The patient presents with shortness of breath, cough, wheezing. 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 The pa mony presented with shortness of breath, cough, wheezing, chest congestion, with chest tightness and with aggressive treatment she still continues to experience chest tightness and shortness of breath with wheeze. She states she is slowly getting better, but it is taking a moment. No fever, chills. No nausea, vomiting, no diarrhea, no abdominal pain, no severe chest pain. PAST MEDICAL HISTORY: As above. ALLERGIES: TORADOL, AMOXICILLIN, EGGS, GABAPENTIN, LASIX, SULFA, AND SULFONAMIDE ANTIBIOTICS. SOCIAL HISTORY: The patient has no history of smoking or ETOH abuse. No drug abuse. FAMILY HISTORY: Noncontributory. REVIEW OF SYSTEMS: CONSTITUTIONAL: All negative. HEENT: All negative. LUNGS: Reveal some shortness of breath, cough, wheezing and chest congestion. CARDIOVASCULAR: All negative. GASTROINTESTINAL: All negative. GENITOURINARY: All negative. MUSCULOSKELETAL: All negative. NEUROPSYCHIATRIC: All negative. HEMATOLOGIC: Negative. IMMUNOLOGIC: All negative. ENDOCRINE: All negative. INTEGRITY: All negative. PHYSICAL EXAMINATION: VITAL SIGNS: Her temperature is 98, her pulse is 98, respirations are 20, and BP is 159/104. HEAD: Atraumatic, normocephalic. EYES: Reactive to light. EARS, NOSE AND THROAT: Seem to be within normal limits. NECK: Supple, no JVD, no thyroid enlargement, no lymph nodes. HEART: Has a regular rate and rhythm. Normal S1, S2. LUNGS: Reveal bilateral rhonchi with expiratory wheezing. ABDOMEN: Soft, nontender, normal bowel sounds. No organomegaly noted. GENITALIA AND RECTAL: Deferred. MUSCULOSKELETAL: No joint deformities. EXTREMITIES: Reveal 1+ lower extremity edema. NEUROLOGIC: She seemed to be grossly intact. LABORATORY DATA: The patient's chest x-ray: There is no active pulmonary disease. She has a white count of 5.6, hemoglobin is 13.8, hematocrit 39.6 with platelets of 186,000. The patient's sodium is 137, potassium 3.0, chloride 101, CO2 of 27 with a glucose of 348. IMPRESSION: This patient has exacerbation of her chronic obstructive pulmonary disease. She is morb idly obese with hypertension, diabetes, hyperlipidemia, and hypothyroidism. The patient also has chr onic pancreatitis. PLAN: We will continue with O2 via nasal cannula. The patient will get BiPAP at night. We will con tinue with the DuoNeb and we will continue with Levaquin. The cough medicine is Robitussin and codei ne. She is on Singulair and she is still on Solu-Medrol IV and we are giving aggressive pulmonary to ilet. The patient is also on budesonide and Singulair. Santosh Daniel MD cc: [id number] TT: 02/26/2017 19:05:44 Confirmation # [id number] Dictation # [id number]
[2017-02-26] MEDS: guaiFENesin-Codeine 100-10mg/5ml Syrup (5 ml) UD PO SCH (19:14)
[2017-02-27] MEDS: Albuterol-Ipratrop 3 mg / 0.5 (3 ml) UD IH SCH ×7 (00:08→23:57)
[2017-02-27] MEDS: guaiFENesin-Codeine 100-10mg/5ml Syrup (5 ml) UD PO SCH ×5 (04:51→23:42)
[2017-02-27] MEDS: Insulin Reg-HIGH-Coverage SC SCH ×4 (08:22→22:11)
[2017-02-27] MEDS: Arformoterol 15 mcg/2 ml Inh Sol IH SCH ×2 (08:24→19:28)
[2017-02-27] MEDS: Budesonide 0.5 mg/2 ml Inhal Susp UD IH SCH ×2 (08:25→19:29)
[2017-02-27] MEDS: Enoxaparin 40 mg Syringe SC SCH (10:08)
[2017-02-27] MEDS: Tiotropium 18 mcg Cap For Inhalation INH SCH (10:09)
[2017-02-27] MEDS: Clotrimazole 1% Cream(30 gm) TOP SCH ×2 (10:09→17:22)
[2017-02-27] MEDS: Insulin Detemir 100 units/ml Vial (Levemir) SC SCH ×2 (10:11→22:07)
[2017-02-27] MEDS: levoFLOXacin 750 mg in D5W 750 MG/150 ML BAG IVPB SCH (10:12)
[2017-02-27] MEDS: LIPASE PO SCH (10:12)
[2017-02-27] MEDS: MethylPREDNISolone 40 mg Vial IVP SCH (10:12)
[2017-02-27] MEDS: [UNRECOGNIZED DRUG - OTHER] PO SCH (10:12)
[2017-02-27] MEDS: PROTEASE PO SCH (10:12)
[2017-02-27] MEDS: AMYLASE PO SCH (10:12)
[2017-02-27 10:40] LABS: BLOOD UREA NITROGEN 18 mg/dL (7-21); CALCIUM 9.8 mg/dL (8.4-10.5); CARBON DIOXIDE 30 mmol/L (21-33); CHLORIDE 98 mmol/L (98-107); GFR AFRICAN-AMERICAN > 60; GLUCOSE,RANDOM 288 mg/dL (70-110); POTASSIUM 3.4 mmol/L (3.6-5.0); SODIUM 138 mmol/L (132-148)
[2017-02-27] MEDS ORDERED: Potassium Chloride 20 mEq ER Tab PO ONE (11:04)
[2017-02-27] MEDS: CREON 12000 UNIT PO SCH ×2 (12:36→17:12)
[2017-02-27 13:55] LABS: ARTERIAL BLOOD GAS HCO3 25.9 mmol/L (21-28); ARTERIAL BLOOD GAS PH 7.49 (7.35-7.45)
[2017-02-27 13:57] LABS: ARTERIAL BLOOD HGB O2 SAT 96.5 % (95.0-98.0); CARBOXYHEMOGLOBIN 1.5 % (0.5-1.5); HHB 0.9 % (0-5); METHEMOGLOBIN 1.2 % (0.0-3.0)
--- NOTE | 2017-02-27 23:55 | CP.PCM.PN ---
<JimboMelvi - Last Filed: 02/28/17 00:53> Subjective - Date & Time of Evaluation Date of Evaluation: 02/27/17 Time of Evaluation: 09:20 - Subjective Subjective: Pt seen and evaluated at bedside. Pt has less SOB. Denies urinary or stool changes. Afebrile overnight. Objective - Vital Signs/Intake and Output Vital Signs (last 24 hours): Temp Pulse Resp BP Pulse Ox 98.7 F 84 20 125/64 96 02/27/17 16:51 02/27/17 18:00 02/27/17 16:51 02/27/17 16:51 02/27/17 16:51 Intake and Output: 02/27/17 02/28/17 18:59 06:59 Intake Total 660 780 Balance 660 780 - Medications Medications: Current Medications Albuterol/Ipratropium (Duoneb 3 Mg/0.5 Mg (3 Ml) Ud) 3 ml IH Q2 PRN PRN Reason: Shortness of Breath Last Admin: 02/26/17 01:04 Dose: 3 ml Albuterol/Ipratropium (Duoneb 3 Mg/0.5 Mg (3 Ml) Ud) 3 ml IH [id number] [facility] Last Admin: 02/27/17 19:30 Dose: 3 ml Alprazolam (Xanax) 0.25 mg PO Q8 PRN; Protocol PRN Reason: Anxiety Stop: 03/06/17 14:01 Last Admin: 02/27/17 23:42 Dose: 0.25 mg Arformoterol Tartrate (Brovana) 15 mcg IH [id number] [facility] Last Admin: 02/27/17 19:28 Dose: 15 mcg Atenolol (Tenormin) 25 mg PO DAILY [facility] Last Admin: 02/27/17 10:10 Dose: 25 mg Atorvastatin Calcium (Lipitor) 20 mg PO DIN [facility] Last Admin: 02/27/17 17:12 Dose: 20 mg Benzonatate (Tessalon Perles) 100 mg PO TID [facility] Last Admin: 02/27/17 17:12 Dose: 100 mg Budesonide (Pulmicort Respules) 1 mg IH [id number] [facility] Last Admin: 02/27/17 19:29 Dose: 1 mg Clotrimazole (Lotrimin 1%) 1 gm TOP BID [facility] Last Admin: 02/27/17 17:22 Dose: 1 gm Enoxaparin Sodium (Lovenox) 40 mg SC DAILY [facility] PRN Reason: Protocol Last Admin: 02/27/17 10:08 Dose: 40 mg Ergocalciferol (Drisdol 50,000 Intl Units Cap) 1 cap PO FRI [facility] Last Admin: 02/26/17 09:58 Dose: 1 cap Famotidine (Pepcid) 20 mg PO 1000,2200 [facility] Last Admin: 02/27/17 21:53 Dose: 20 mg Guaifenesin/Codeine Phosphate (Robitussin W/Codeine) 5 ml PO Q6H [facility] Last Admin: 02/27/17 23:42 Dose: 5 ml Hydrochlorothiazide (Microzide) 12.5 mg PO DAILY [facility] Last Admin: 02/27/17 10:10 Dose: 12.5 mg Insulin Detemir (Levemir) 18 unit SC AMHS [facility] Last Admin: 02/27/17 22:07 Dose: 18 unit Insulin Human Regular (Humulin R High) 0 units SC ACHS [facility] PRN Reason: Protocol Last Admin: 02/27/17 22:11 Dose: 2 units Loratadine (Claritin) 10 mg PO DAILY [facility] Last Admin: 02/27/17 10:11 Dose: 10 mg Montelukast Sodium (Singulair) 10 mg PO DAILY [facility] Last Admin: 02/27/17 10:11 Dose: [address] 12,000 (Units (Home Med)) 12,000 mg PO WM [facility] Last Admin: 02/27/17 17:12 Dose: 12,000 mg Ondansetron HCl (Zofran Inj) 4 mg IVP Q6H PRN PRN Reason: Nausea/Vomiting Last Admin: 02/26/17 15:56 Dose: 4 mg Paroxetine HCl (Paxil) 30 mg PO DAILY [facility] Last Admin: 02/27/17 10:09 Dose: 30 mg Prednisone (Prednisone Tab) 40 mg PO DAILY [facility] Propylthiouracil (Propylthiouracil) 150 mg PO TID [facility] Last Admin: 02/27/17 17:06 Dose: Not Given Tiotropium [place] (Spiriva) 18 mcg INH DAILY [facility] Last Admin: 02/27/17 10:09 Dose: 18 mcg - Labs Labs: 02/26/17 07:00 02/27/17 10:20 PT 10.1 Seconds (9.9-11.8) 02/24/17 16:40 INR 0.94 (0.93-1.08) 02/24/17 16:40 APTT 27.1 Seconds (23.7-30.8) 02/24/17 16:40 - Additional Findings Additional findings: - Constitutional Appears: Non-toxic, No Acute Distress - Head Exam Head Exam: ATRAUMATIC, NORMOCEPHALIC - Eye Exam Eye Exam: EOMI, Normal appearance - Respiratory Exam Respiratory Exam: Clear to Ausculation Bilateral, NORMAL BREATHING PATTERN - Cardiovascular Exam Cardiovascular Exam: +S1, +S2. absent: Bradycardia - GI/Abdominal Exam GI & Abdominal Exam: Soft. absent: Tenderness - Exam External exam: absent: Ecchymosis, Erythema - Back Exam Back Exam: absent: CVA tenderness (L), CVA tenderness (R) - Neurological Exam Neurological Exam: Alert, Awake - Skin Skin Exam: Intact, Normal Color Assessment and Plan - Assessment and Plan (Free Text) Plan: 56 yo female with PMH of HTN, hypercholesterolemia, DM, Asthma, COPD, hypothyroidism, anxiety, depression and chronic pancreatitis present to ED with SOB and cough due to COPD exacerbation, chest pain 1. COPD exacerbation - solu-medrol IV 40mg qd, will d/c and start PO prednisone the next day - abx Levaquin d/c, BCx neg x 72hrs - Duonebs q4 oliverio and q2 prn - mucinex and tessalon perles - cont home medications -nightly bipap: IPAP 10, EPAP 5 and flow rate 30 2. chest pain - reproducible to palpitation - troponin negative x 2 - cont to monitor on remote tele -ECHO: EF wnl, mild pulmonary HTN, mild to mod MR, and mild TR 3. fungal infection - under left breast - clotrimazole cream BID 4. cellulitis of left foot - afebrile without leukocytosis - d/c Levaquin -venous Doppler for LE is negative 5. DM - cont home insulin - insulin levemir 15 units AMHS, ISSS- high ACHS 6. HTN - cont home medications HCTZ and atenolol - cont to monitor 7. chronic pancreatitis - lipase wnl - cont pancreatic enzymes 8. anxiety - cont home med paxil 9.Hypokalemia 4.3 today Repleted, monitor and replete as needed. ppx GI- pepcid DVT- lovenox zofran prn <Pam Serrano - Last Filed: 02/28/17 08:54> Objective - Vital Signs/Intake and Output Vital Signs (last 24 hours): Temp Pulse Resp BP Pulse Ox 97.8 F 68 18 137/78 96 02/28/17 07:25 02/28/17 07:25 02/28/17 07:25 02/28/17 07:25 02/28/17 07:25 Intake and Output: 02/28/17 02/28/17 06:59 18:59 Intake Total 900 Balance 900 - Medications Medications: Current Medications Albuterol/Ipratropium (Duoneb 3 Mg/0.5 Mg (3 Ml) Ud) 3 ml IH Q2 PRN PRN Reason: Shortness of Breath Last Admin: 02/26/17 01:04 Dose: 3 ml Albuterol/Ipratropium (Duoneb 3 Mg/0.5 Mg (3 Ml) Ud) 3 ml IH [id number] [facility] Last Admin: 02/28/17 08:05 Dose: 3 ml Alprazolam (Xanax) 0.25 mg PO Q8 PRN; Protocol PRN Reason: Anxiety Stop: 03/06/17 14:01 Last Admin: 02/27/17 23:42 Dose: 0.25 mg Arformoterol Tartrate (Brovana) 15 mcg IH [id number] [facility] Last Admin: 02/28/17 08:05 Dose: 15 mcg Atenolol (Tenormin) 25 mg PO DAILY [facility] Last Admin: 02/27/17 10:10 Dose: 25 mg Atorvastatin Calcium (Lipitor) 20 mg PO DIN [facility] Last Admin: 02/27/17 17:12 Dose: 20 mg Benzonatate (Tessalon Perles) 100 mg PO TID [facility] Last Admin: 02/27/17 17:12 Dose: 100 mg Budesonide (Pulmicort Respules) 1 mg IH [id number] [facility] Last Admin: 02/28/17 08:05 Dose: 0.5 mg Clotrimazole (Lotrimin 1%) 1 gm TOP BID [facility] Last Admin: 02/27/17 17:22 Dose: 1 gm Enoxaparin Sodium (Lovenox) 40 mg SC DAILY [facility] PRN Reason: Protocol Last Admin: 02/27/17 10:08 Dose: 40 mg Ergocalciferol (Drisdol 50,000 Intl Units Cap) 1 cap PO FRI [facility] Last Admin: 02/26/17 09:58 Dose: 1 cap Famotidine (Pepcid) 20 mg PO 1000,2200 [facility] Last Admin: 02/27/17 21:53 Dose: 20 mg Guaifenesin/Codeine Phosphate (Robitussin W/Codeine) 5 ml PO Q6H [facility] Last Admin: 02/28/17 05:43 Dose: 5 ml Hydrochlorothiazide (Microzide) 12.5 mg PO DAILY [facility] Last Admin: 02/27/17 10:10 Dose: 12.5 mg Insulin Detemir (Levemir) 18 unit SC AMHS [facility] Last Admin: 02/27/17 22:07 Dose: 18 unit Insulin Human Regular (Humulin R High) 0 units SC ACHS [facility] PRN Reason: Protocol Last Admin: 02/27/17 22:11 Dose: 2 units Loratadine (Claritin) 10 mg PO DAILY [facility] Last Admin: 02/27/17 10:11 Dose: 10 mg Montelukast Sodium (Singulair) 10 mg PO DAILY [facility] Last Admin: 02/27/17 10:11 Dose: [address] 12,000 (Units (Home Med)) 12,000 mg PO WM [facility] Last Admin: 02/27/17 17:12 Dose: 12,000 mg Ondansetron HCl (Zofran Inj) 4 mg IVP Q6H PRN PRN Reason: Nausea/Vomiting Last Admin: 02/26/17 15:56 Dose: 4 mg Paroxetine HCl (Paxil) 30 mg PO DAILY [facility] Last Admin: 02/27/17 10:09 Dose: 30 mg Prednisone (Prednisone Tab) 40 mg PO DAILY [facility] Propylthiouracil (Propylthiouracil) 150 mg PO TID [facility] Last Admin: 02/27/17 17:06 Dose: Not Given Tiotropium [place] (Spiriva) 18 mcg INH DAILY [facility] Last Admin: 02/27/17 10:09 Dose: 18 mcg - Labs Labs: 02/28/17 06:46 02/28/17 06:46 PT 10.1 Seconds (9.9-11.8) 02/24/17 16:40 INR 0.94 (0.93-1.08) 02/24/17 16:40 APTT 27.1 Seconds (23.7-30.8) 02/24/17 16:40 Attending/Attestation - Attestation I have personally seen and examined this patient.: Yes I have fully participated in the care of the patient.: Yes I have reviewed all pertinent clinical information, including history, physical exam and plan: Yes Notes (Text): 02/28/17 08:53 Patient seen and examined at bedside. labs, vitals and notes reviewed. She feels better but still has an ongoing cough, reported issues with BipAP overnight. Denies any new complaints. Discussed and agree with the plan outlined above by the resident including continuation of systemic steroids, Russell
[2017-02-28] MEDS: Albuterol-Ipratrop 3 mg / 0.5 (3 ml) UD IH SCH ×5 (03:28→19:55)
[2017-02-28] MEDS: guaiFENesin-Codeine 100-10mg/5ml Syrup (5 ml) UD PO SCH ×4 (05:43→23:55)
[2017-02-28 06:48] LABS: ADD MANUAL DIFF? NO
[2017-02-28 07:02] LABS: BASO # 0.02 K/mm3 (0.0-2.0); BASO % 0.3 % (0.0-3.0); EOS # 0.1 (0.0-0.7); EOS % 1.3 % (1.5-5.0); GRAN # 4.21 (1.4-6.5); GRAN % 54.2 % (50.0-68.0); HEMATOCRIT 37.2 % (36.0-48.0); LYMPH # 2.9 (1.2-3.4); LYMPH % 37.3 % (22.0-35.0); MEAN CELL VOLUME 82.5 fL (80.0-105.0); MEAN CORPUSCULAR HEMOGLOBIN 27.3 pg (25.0-35.0); MEAN CORPUSCULAR HGB CONC 33.1 g/dl (31.0-37.0); MEAN PLATELET VOLUME 11.1 fl (7.0-11.0); MONO # 0.5 (0.1-0.6); MONO % 6.9 % (1.0-6.0); PLATELET COUNT 177 10^3/uL (120.0-450.0); RED CELL DISTRIBUTION WIDTH 13.5 % (11.5-14.5); WHITE BLOOD COUNT 7.8 10^3/ul (4.5-11.0)
[2017-02-28 07:05] LABS: BLOOD UREA NITROGEN 21 mg/dL (7-21); CALCIUM 9.2 mg/dL (8.4-10.5); CARBON DIOXIDE 30 mmol/L (21-33); CHLORIDE 99 mmol/L (95-110); GFR AFRICAN-AMERICAN > 60; GLUCOSE,RANDOM 188 mg/dL (70-110); POTASSIUM 3.7 mmol/L (3.6-5.0); SODIUM 137 mmol/L (132-148)
[2017-02-28] MEDS: Budesonide 0.5 mg/2 ml Inhal Susp UD IH SCH ×2 (08:05→19:55)
[2017-02-28] MEDS: Arformoterol 15 mcg/2 ml Inh Sol IH SCH ×2 (08:05→19:54)
--- NOTE | 2017-02-28 08:12 | RAD ---
PROCEDURE: CHEST RADIOGRAPH, 1 VIEW HISTORY: cough COMPARISON: None available. FINDINGS: LUNGS: Clear. PLEURA: No pneumothorax or pleural fluid seen. CARDIOVASCULAR: Normal. OSSEOUS STRUCTURES: No significant abnormalities. VISUALIZED UPPER ABDOMEN: Normal. OTHER FINDINGS: None. IMPRESSION: No active disease.
[2017-02-28] MEDS: Insulin Reg-HIGH-Coverage SC SCH ×4 (08:56→22:57)
[2017-02-28] MEDS: Insulin Detemir 100 units/ml Vial (Levemir) SC SCH ×2 (09:04→22:58)
[2017-02-28] MEDS: CREON 12000 UNIT PO SCH ×3 (09:04→17:32)
[2017-02-28] MEDS: Clotrimazole 1% Cream(30 gm) TOP SCH ×2 (09:05→17:33)
[2017-02-28] MEDS: Enoxaparin 40 mg Syringe SC SCH (09:05)
[2017-02-28] MEDS: Tiotropium 18 mcg Cap For Inhalation INH SCH (09:06)
--- NOTE | 2017-02-28 11:54 | PN ---
DATE: 02/28/2017 PULMONARY NOTE SUBJECTIVE: The patient is resting in bed, getting a nebulizer treatment, speaking in full sentences . She has occasional cough and states that she continues to have some wheezing, but it is improving. She has chest congestion, but her respiratory status has improved significantly. No fever or chill s. No nausea or vomiting. No abdominal pain, no chest pain, no diarrhea. The patient is using the BiPAP at night, and she states that it does help during her sleeping hours. PHYSICAL EXAMINATION: VITAL SIGNS: Note that her temperature is 97.8, her pulse is 68, respirations are 18, and BP is 137/ 78. SKIN: Warm and dry. HEAD: Atraumatic, normocephalic. EYES: Reactive to light. EARS, NOSE, AND THROAT: Seem to be within normal limits. NECK: Supple. No JVD, no thyroid enlargement, no lymph nodes. HEART: Regular rate and rhythm. Normal S1, S2. LUNGS: Reveal good breath sounds bilaterally with mild rhonchi at the bases. ABDOMEN: Soft, nontender, normal bowel sounds, but obese. GENITALIA AND RECTAL: Deferred. MUSCULOSKELETAL: No joint deformities. EXTREMITIES: Reveal trace lower extremity edema. NEUROLOGIC: She seemed to be grossly intact. As far as the most recent chest x-ray, it reveals no infiltrates. LABORATORY DATA: White count is 7.8. Hemoglobin is 12.3, hematocrit 37.2 with platelets of 177,000. Sodium is 137, potassium 3.7, chloride 99, CO2 of 30 with a BUN of 21, creatinine of 0.6, and a glu cose of 188. IMPRESSION: This patient has exacerbation of her chronic obstructive pulmonary disease, morbid obesi ty with hypertension, diabetes, hyperlipidemia, and hypothyroidism, as well as chronic pancreatitis. PLAN: We will continue with O2 via nasal cannula. Continue with BiPAP at night, and the patient is getting nebulizer, and Levaquin, and Robitussin with codeine. She is continued on her Singulair, the Solu-Medrol, and will continue with aggressive pulmonary toilet. Santosh Daniel MD cc: [id number] TT: 02/28/2017 11:53:55 Confirmation # [id number] Dictation # [id number]
[2017-02-28 16:08] VITALS: RESP 20
[2017-02-28] MEDS: Nystatin 100,000 Units/gm Topical Pow(15 gm) TOP SCH (18:54)
--- NOTE | 2017-02-28 20:30 | CP.PCM.PN ---
<JimboMelvi - Last Filed: 02/28/17 20:34> Subjective - Date & Time of Evaluation Date of Evaluation: 02/28/17 Time of Evaluation: 11:00 - Subjective Subjective: Pt seen and evaluated at bedside. Reports no change in SOB. Afebrile overnight. Objective - Vital Signs/Intake and Output Vital Signs (last 24 hours): Temp Pulse Resp BP Pulse Ox 98 F 62 20 131/73 98 02/28/17 16:07 02/28/17 18:00 02/28/17 16:07 02/28/17 16:07 02/28/17 16:07 Intake and Output: 02/28/17 03/01/17 18:59 06:59 Intake Total 600 Balance 600 - Medications Medications: Current Medications Albuterol/Ipratropium (Duoneb 3 Mg/0.5 Mg (3 Ml) Ud) 3 ml IH Q2 PRN PRN Reason: Shortness of Breath Last Admin: 02/26/17 01:04 Dose: 3 ml Albuterol/Ipratropium (Duoneb 3 Mg/0.5 Mg (3 Ml) Ud) 3 ml IH [id number] [facility] Last Admin: 02/28/17 19:55 Dose: 3 ml Alprazolam (Xanax) 0.25 mg PO Q8 PRN; Protocol PRN Reason: Anxiety Stop: 03/06/17 14:01 Last Admin: 02/27/17 23:42 Dose: 0.25 mg Arformoterol Tartrate (Brovana) 15 mcg IH [id number] [facility] Last Admin: 02/28/17 19:54 Dose: 15 mcg Atenolol (Tenormin) 25 mg PO DAILY [facility] Last Admin: 02/28/17 09:06 Dose: 25 mg Atorvastatin Calcium (Lipitor) 20 mg PO DIN [facility] Last Admin: 02/28/17 17:33 Dose: 20 mg Benzonatate (Tessalon Perles) 100 mg PO TID [facility] Last Admin: 02/28/17 17:33 Dose: 100 mg Budesonide (Pulmicort Respules) 1 mg IH [id number] [facility] Last Admin: 02/28/17 19:55 Dose: 0.5 mg Enoxaparin Sodium (Lovenox) 40 mg SC DAILY [facility] PRN Reason: Protocol Last Admin: 02/28/17 09:05 Dose: 40 mg Ergocalciferol (Drisdol 50,000 Intl Units Cap) 1 cap PO FRI [facility] Last Admin: 02/26/17 09:58 Dose: 1 cap Famotidine (Pepcid) 20 mg PO 1000,2200 [facility] Last Admin: 02/28/17 09:06 Dose: 20 mg Guaifenesin/Codeine Phosphate (Robitussin W/Codeine) 5 ml PO Q6H [facility] Last Admin: 02/28/17 17:37 Dose: 5 ml Hydrochlorothiazide (Microzide) 12.5 mg PO DAILY [facility] Last Admin: 02/28/17 09:06 Dose: 12.5 mg Insulin Detemir (Levemir) 18 unit SC AMHS [facility] Last Admin: 02/28/17 09:04 Dose: 18 unit Insulin Human Regular (Humulin R High) 0 units SC ACHS [facility] PRN Reason: Protocol Last Admin: 02/28/17 17:39 Dose: 10 units Loratadine (Claritin) 10 mg PO DAILY [facility] Last Admin: 02/28/17 09:06 Dose: 10 mg Montelukast Sodium (Singulair) 10 mg PO DAILY [facility] Last Admin: 02/28/17 09:06 Dose: [address] 12,000 (Units (Home Med)) 12,000 mg PO WM [facility] Last Admin: 02/28/17 17:32 Dose: 12,000 mg Nystatin (Nystop Topical Powder) 0 gm TOP DAILY [facility] Last Admin: 02/28/17 18:54 Dose: 1 applic Ondansetron HCl (Zofran Inj) 4 mg IVP Q6H PRN PRN Reason: Nausea/Vomiting Last Admin: 02/26/17 15:56 Dose: 4 mg Pantoprazole Sodium (Protonix Ec Tab) 20 mg PO 0730 [facility] Paroxetine HCl (Paxil) 30 mg PO DAILY [facility] Last Admin: 02/28/17 09:06 Dose: 30 mg Prednisone (Prednisone Tab) 40 mg PO DAILY [facility] Last Admin: 02/28/17 09:06 Dose: 40 mg Propylthiouracil (Propylthiouracil) 150 mg PO TID [facility] Last Admin: 02/28/17 17:33 Dose: Not Given Tiotropium [place] (Spiriva) 18 mcg INH DAILY [facility] Last Admin: 02/28/17 09:06 Dose: 18 mcg - Labs Labs: 06/04/17 06:46 02/28/17 06:46 PT 10.1 Seconds (9.9-11.8) 02/24/17 16:40 INR 0.94 (0.93-1.08) 02/24/17 16:40 APTT 27.1 Seconds (23.7-30.8) 02/24/17 16:40 - Constitutional Appears: Non-toxic, No Acute Distress - Head Exam Head Exam: ATRAUMATIC, NORMOCEPHALIC - Eye Exam Eye Exam: EOMI, Normal appearance - Respiratory Exam Respiratory Exam: Clear to Ausculation Bilateral, NORMAL BREATHING PATTERN - Cardiovascular Exam Cardiovascular Exam: +S1, +S2. absent: Bradycardia - GI/Abdominal Exam GI & Abdominal Exam: Soft. absent: Tenderness - Exam External exam: absent: Ecchymosis, Lacerations, Lesions - Extremities Exam Extremities Exam: Normal Capillary Refill. absent: Tenderness - Back Exam Back Exam: absent: CVA tenderness (L), CVA tenderness (R) - Neurological Exam Neurological Exam: Alert, Awake - Skin Skin Exam: Normal Color, Warm Assessment and Plan - Assessment and Plan (Free Text) Plan: 56 yo female with PMH of HTN, hypercholesterolemia, DM, Asthma, COPD, hypothyroidism, anxiety, depression and chronic pancreatitis present to ED with SOB and cough due to COPD exacerbation, chest pain 1. COPD exacerbation - PO prednisone - abx Levaquin 02/27, BCx neg x 96hrs - Duonebs q4 oliverio and q2 prn - mucinex and tessalon perles - cont home medications -nightly bipap: IPAP 10, EPAP 5 and flow rate 30 -Nurse ambulated pt 02/28 "02sat before ambulating was 94% on room air with heart rate @ 66. 02sat after ambulating was 89% on room air with heart air @ 77[HR]" Currently pt does not meet criteria for home O2. 2. chest pain - reproducible to palpitation - troponin negative x 2 - cont to monitor on remote tele -ECHO: EF wnl, mild pulmonary HTN, mild to mod MR, and mild TR 3. fungal infection - under left breast and right breast - nystatin powder 4. cellulitis of left foot - afebrile without leukocytosis - d/c Levaquin /3 -venous Doppler for LE is negative 5. DM - cont home insulin - insulin levemir 15 units AMHS, ISSS- high ACHS 6. HTN - cont home medications HCTZ and atenolol - cont to monitor 7. chronic pancreatitis - lipase wnl - cont pancreatic enzymes 8. anxiety - cont home med paxil, and xanax 9.Hypokalemia 3.7 today, wnl monitor and replete as needed. ppx GI- pepcid DVT- lovenox zofran prn <Pam Serrano - Last Filed: 03/01/17 17:59> Objective - Vital Signs/Intake and Output Vital Signs (last 24 hours): Temp Pulse Resp BP Pulse Ox 97.9 F 63 20 142/88 96 03/01/17 16:00 03/01/17 16:00 03/01/17 16:00 03/01/17 16:00 03/01/17 16:00 Intake and Output: 03/01/17 03/01/17 06:59 18:59 Intake Total 700 960 Balance 700 960 - Medications Medications: Current Medications Albuterol/Ipratropium (Duoneb 3 Mg/0.5 Mg (3 Ml) Ud) 3 ml IH Q2 PRN PRN Reason: Shortness of Breath Last Admin: 02/26/17 01:04 Dose: 3 ml Albuterol/Ipratropium (Duoneb 3 Mg/0.5 Mg (3 Ml) Ud) 3 ml IH [id number] [facility] Last Admin: 03/01/17 16:08 Dose: 3 ml Alprazolam (Xanax) 0.25 mg PO Q8 PRN; Protocol PRN Reason: Anxiety Stop: 03/06/17 14:01 Last Admin: 03/01/17 09:46 Dose: 0.25 mg Arformoterol Tartrate (Brovana) 15 mcg IH [id number] [facility] Last Admin: 03/01/17 08:03 Dose: 15 mcg Atenolol (Tenormin) 25 mg PO DAILY [facility] Last Admin: 03/01/17 09:42 Dose: 25 mg Atorvastatin Calcium (Lipitor) 20 mg PO DIN [facility] Last Admin: 03/01/17 17:30 Dose: 20 mg Benzonatate (Tessalon Perles) 100 mg PO TID [facility] Last Admin: 03/01/17 17:27 Dose: 100 mg Budesonide (Pulmicort Respules) 1 mg IH [id number] [facility] Last Admin: 03/01/17 08:04 Dose: 0.5 mg Enoxaparin Sodium (Lovenox) 40 mg SC DAILY [facility] PRN Reason: Protocol Last Admin: 03/01/17 09:39 Dose: 40 mg Ergocalciferol (Drisdol 50,000 Intl Units Cap) 1 cap PO FRI [facility] Last Admin: 02/26/17 09:58 Dose: 1 cap Famotidine (Pepcid) 20 mg PO 1000,2200 [facility] Last Admin: 03/01/17 09:40 Dose: 20 mg Guaifenesin/Codeine Phosphate (Robitussin W/Codeine) 5 ml PO Q6H [facility] Last Admin: 03/01/17 17:30 Dose: 5 ml Hydrochlorothiazide (Microzide) 12.5 mg PO DAILY [facility] Last Admin: 03/01/17 09:39 Dose: 12.5 mg Insulin Detemir (Levemir) 18 unit SC AMHS [facility] Last Admin: 03/01/17 09:51 Dose: 18 unit Insulin Human Regular (Humulin R High) 0 units SC ACHS [facility] PRN Reason: Protocol Last Admin: 03/01/17 17:29 Dose: 10 units Loratadine (Claritin) 10 mg PO DAILY [facility] Last Admin: 03/01/17 09:39 Dose: 10 mg Montelukast Sodium (Singulair) 10 mg PO DAILY [facility] Last Admin: 03/01/17 09:42 Dose: [address] 12,000 (Units (Home Med)) 12,000 mg PO WM [facility] Last Admin: 03/01/17 17:27 Dose: 12,000 mg Nystatin (Nystop Topical Powder) 0 gm TOP DAILY [facility] Last Admin: 03/01/17 09:39 Dose: 1 applic Ondansetron HCl (Zofran Inj) 4 mg IVP Q6H PRN PRN Reason: Nausea/Vomiting Last Admin: 02/26/17 15:56 Dose: 4 mg Pantoprazole Sodium (Protonix Ec Tab) 20 mg PO 0730 [facility] Last Admin: 03/01/17 08:16 Dose: 20 mg Paroxetine HCl (Paxil) 30 mg PO DAILY [facility] Last Admin: 03/01/17 09:40 Dose: 30 mg Prednisone (Prednisone Tab) 40 mg PO DAILY [facility] Last Admin: 03/01/17 09:41 Dose: 40 mg Propylthiouracil (Propylthiouracil) 150 mg PO TID [facility] Last Admin: 03/01/17 17:28 Dose: Not Given Tiotropium [place] (Spiriva) 18 mcg INH DAILY [facility] Last Admin: 03/01/17 09:37 Dose: 18 mcg - Labs Labs: 03/01/17 08:20 03/01/17 08:20 PT 10.1 Seconds (9.9-11.8) 02/24/17 16:40 INR 0.94 (0.93-1.08) 02/24/17 16:40 APTT 27.1 Seconds (23.7-30.8) 02/24/17 16:40 Attending/Attestation - Attestation I have personally seen and examined this patient.: Yes I have fully participated in the care of the patient.: Yes I have reviewed all pertinent clinical information, including history, physical exam and plan: Yes Notes (Text): 03/01/17 17:56 Patient seen and examined at bedside. Labs, vitals and overnight issues reported. She reports tolerating BiPAP better last night with anxiolytics. Overall feels better with some residual cough. Systemic steroids changed to PO regimen. ABG reviewed. Walk test today. Agree with the plan of care outlined by the resident and pulmonary service.
[2017-03-01] MEDS: Albuterol-Ipratrop 3 mg / 0.5 (3 ml) UD IH SCH ×5 (00:27→16:08)
[2017-03-01] MEDS: guaiFENesin-Codeine 100-10mg/5ml Syrup (5 ml) UD PO SCH ×3 (06:27→17:30)
[2017-03-01] MEDS ORDERED: Pantoprazole 20 mg EC Tab PO SCH (07:30)
[2017-03-01] MEDS: Arformoterol 15 mcg/2 ml Inh Sol IH SCH (08:03)
[2017-03-01] MEDS: Budesonide 0.5 mg/2 ml Inhal Susp UD IH SCH (08:04)
[2017-03-01] MEDS: Insulin Reg-HIGH-Coverage SC SCH ×3 (08:08→17:29)
[2017-03-01] MEDS: CREON 12000 UNIT PO SCH ×3 (08:15→17:27)
[2017-03-01 08:30] LABS: ADD MANUAL DIFF? NO
[2017-03-01 08:35] LABS: BASO # 0.02 K/mm3 (0.0-2.0); BASO % 0.2 % (0.0-3.0); EOS # 0.1 (0.0-0.7); EOS % 1.3 % (1.5-5.0); GRAN # 4.48 (1.4-6.5); GRAN % 53.6 % (50.0-68.0); HEMATOCRIT 38.5 % (36.0-48.0); LYMPH # 3.2 (1.2-3.4); LYMPH % 38.3 % (22.0-35.0); MEAN CELL VOLUME 81.2 fL (80.0-105.0); MEAN CORPUSCULAR HEMOGLOBIN 28.1 pg (25.0-35.0); MEAN CORPUSCULAR HGB CONC 34.5 g/dl (31.0-37.0); MEAN PLATELET VOLUME 10.6 fl (7.0-11.0); MONO # 0.6 (0.1-0.6); MONO % 6.6 % (1.0-6.0); PLATELET COUNT 168 10^3/uL (120.0-450.0); RED CELL DISTRIBUTION WIDTH 13.1 % (11.5-14.5); WHITE BLOOD COUNT 8.4 10^3/ul (4.5-11.0)
[2017-03-01 08:43] LABS: ALB/GLOB RATIO 1.3 (1.1-1.8); ALKALINE PHOSPHATASE 82 U/L (38-133); ALT/SGPT 20 U/L (7-56); AST/SGOT 12 U/L (15-39); BILIRUBIN,TOTAL 0.7 mg/dL (0.2-1.3); BLOOD UREA NITROGEN 19 mg/dL (7-21); CALCIUM 9.6 mg/dL (8.4-10.5); CARBON DIOXIDE 29 mmol/L (21-33); CHLORIDE 99 mmol/L (98-107); GFR AFRICAN-AMERICAN > 60; GLUCOSE,RANDOM 125 mg/dL (70-110); PHOSPHOROUS 5.2 mg/dL (2.5-4.5); POTASSIUM 3.4 mmol/L (3.6-5.0); SODIUM 137 mmol/L (132-148); TOTAL PROTEIN 6.7 g/dL (5.8-8.3)
[2017-03-01] MEDS ORDERED: Potassium Chloride 40 mEq/30 ml LIQ UD PO ONE (08:57)
[2017-03-01] MEDS: Tiotropium 18 mcg Cap For Inhalation INH SCH (09:37)
[2017-03-01] MEDS: Enoxaparin 40 mg Syringe SC SCH (09:39)
[2017-03-01] MEDS: Nystatin 100,000 Units/gm Topical Pow(15 gm) TOP SCH (09:39)
[2017-03-01] MEDS: Insulin Detemir 100 units/ml Vial (Levemir) SC SCH (09:51)
[2017-03-01] MEDS ORDERED: Acetylcysteine 20% Inhal Soln (4ml) IH ONE (15:30)
[2017-03-01 16:28] VITALS: BP 142/88; PULSE 63; TEMP 97.9; O2SAT 96
--- NOTE | 2017-03-01 18:35 | CP.PCM.DIS ---
<Roger Rodney - Last Filed: 03/01/17 19:37> Provider - Provider Date of Admission: 02/25/17 09:41 Attending physician: Yuri Shetty MD Primary care physician: Radha Hernandez MD Consults: Pulm: Dr. Daniel Time Spent in preparation of Discharge (in minutes): 45 Diagnosis - Discharge Diagnosis (1) Acute exacerbation of COPD with asthma Status: Acute Priority: High (2) Cellulitis of left lower leg Status: Resolved Priority: Medium (3) Uncontrolled diabetes mellitus Status: Chronic Priority: Medium (4) Anxiety Status: Chronic Priority: Low Hospital Course - Lab Results Lab Results: Most Recent Lab Values WBC 8.4 10^3/ul (4.5-11.0) 03/01/17 08:20 RBC 4.74 10^6/uL (3.5-6.1) 03/01/17 08:20 Hgb 13.3 gm/dL (12.0-16.0) 03/01/17 08:20 Hct 38.5 % (36.0-48.0) 03/01/17 08:20 MCV 81.2 fL (80.0-105.0) 03/01/17 08:20 MCH 28.1 pg (25.0-35.0) 03/01/17 08:20 MCHC 34.5 g/dl (31.0-37.0) 03/01/17 08:20 RDW 13.1 % (11.5-14.5) 03/01/17 08:20 Plt Count 168 10^3/uL (120.0-450.0) 03/01/17 08:20 MPV 10.6 fl (7.0-11.0) 03/01/17 08:20 Gran % 53.6 % (50.0-68.0) 03/01/17 08:20 Lymph % (Auto) 38.3 % (22.0-35.0) H 03/01/17 08:20 [place] % (Auto) 6.6 % (1.0-6.0) H 03/01/17 08:20 Eos % (Auto) 1.3 % (1.5-5.0) L 03/01/17 08:20 Baso % (Auto) 0.2 % (0.0-3.0) 03/01/17 08:20 Gran # 4.48 (1.4-6.5) 03/01/17 08:20 Lymph # 3.2 (1.2-3.4) 03/01/17 08:20 [place] # 0.6 (0.1-0.6) 03/01/17 08:20 Eos # 0.1 (0.0-0.7) 03/01/17 08:20 Baso # 0.02 K/mm3 (0.0-2.0) 03/01/17 08:20 PT 10.1 Seconds (9.9-11.8) 02/24/17 16:40 INR 0.94 (0.93-1.08) 02/24/17 16:40 APTT 27.1 Seconds (23.7-30.8) 02/24/17 16:40 pCO2 34 mm/Hg (35-45) L 02/27/17 13:45 pO2 121.0 mm/Hg (80-100) H 02/27/17 13:45 HCO3 25.9 mmol/L (21-28) 02/27/17 13:45 ABG pH 7.49 (7.35-7.45) H 02/27/17 13:45 ABG Total CO2 26.9 mmol.L (22-28) 02/27/17 13:45 ABG O2 Saturation 99.1 % (95-98) H 02/27/17 13:45 ABG Base Excess 2.9 mmol/L (-2.0-3.0) 02/27/17 13:45 ABG Hemoglobin 13.4 g/dL (11.7-17.4) 02/27/17 13:45 ABG Carboxyhemoglobin 1.5 % (0.5-1.5) 02/27/17 13:45 POC ABG HHb (Measured) 0.9 % (0-5) 02/27/17 13:45 ABG Methemoglobin 1.2 % (0.0-3.0) 02/27/17 13:45 Hgb O2 Saturation 96.5 % (95.0-98.0) 02/27/17 13:45 FiO2 28.0 % 02/27/17 13:45 Sodium 137 mmol/L (132-148) 03/01/17 08:20 Potassium 3.4 mmol/L (3.6-5.0) L 03/01/17 08:20 Chloride 99 mmol/L (98-107) 03/01/17 08:20 Carbon Dioxide 29 mmol/L (21-33) 03/01/17 08:20 Anion Gap 12 (10-20) 03/01/17 08:20 BUN 19 mg/dL (7-21) 03/01/17 08:20 Creatinine 0.5 mg/dL (0.5-1.4) 03/01/17 08:20 Est GFR ( Amer) > 60 03/01/17 08:20 Est GFR (Non-Af Amer) > 60 03/01/17 08:20 POC Glucose (mg/dL) 160 mg/dL (65-110) H 03/01/17 05:52 Random Glucose 125 mg/dL (70-110) H 03/01/17 08:20 Calcium 9.6 mg/dL (8.4-10.5) 03/01/17 08:20 Phosphorus 5.2 mg/dL (2.5-4.5) H 03/01/17 08:20 Magnesium 2.0 mg/dL (1.7-2.2) 03/01/17 08:20 Total Bilirubin 0.7 mg/dL (0.2-1.3) 03/01/17 08:20 AST 12 U/L (15-39) L 03/01/17 08:20 ALT 20 U/L (7-56) 03/01/17 08:20 Alkaline Phosphatase 82 U/L (38-133) 03/01/17 08:20 Lactate Dehydrogenase 357 U/L (333-699) 02/25/17 07:00 Total Creatine Kinase 47 U/L (35-230) 02/25/17 07:00 Troponin I < 0.01 ng/mL 02/25/17 07:00 NT-Pro-B Natriuret Pep 54.7 pg/mL (0-450) 02/24/17 16:40 Total Protein 6.7 g/dL (5.8-8.3) 03/01/17 08:20 Albumin 3.8 g/dL (3.0-4.8) 03/01/17 08:20 Globulin 2.9 gm/dL 03/01/17 08:20 Albumin/Globulin Ratio 1.3 (1.1-1.8) 03/01/17 08:20 Lipase 69 U/L (23-300) 02/24/17 16:40 Urine Color Straw (YELLOW) 02/24/17 18:25 Urine Appearance Sl cloudy (CLEAR) 02/24/17 18:25 Urine pH 6.5 (4.7-8.0) 02/24/17 18:25 Ur Specific [place] <= 1.005 (1.005-1.035) 02/24/17 18:25 Urine Protein Negative mg/dL (<30 mg/dL) 02/24/17 18:25 Urine Glucose (UA) >=1000 mg/dL (NEGATIVE) 02/24/17 18:25 Urine Ketones 15 mg/dL (NEGATIVE) H 02/24/17 18:25 Urine Blood Trace-intact (NEGATIVE) H 02/24/17 18:25 Urine Nitrate Negative (NEGATIVE) 02/24/17 18:25 Urine Bilirubin Negative (NEGATIVE) 02/24/17 18:25 Urine Urobilinogen 0.2 E.U./dL (<1 E.U./dL) 02/24/17 18:25 Ur Leukocyte Esterase [place]/uL (NEGATIVE) H 02/24/17 18:25 Urine RBC 0 - 2 /hpf (0-2) 02/24/17 18:25 Urine WBC 5 - 10 /hpf (0-6) 02/24/17 18:25 Ur Epithelial Cells 0 - 2 /hpf (0-5) 02/24/17 18:25 Urine Bacteria Few (NEG) 02/24/17 18:25 - Hospital Course Hospital Course: This is a 56 yo F with PMH of HTN, hypercholesterolemia, DM, Asthma, COPD, hypothyroidism, anxiety, depression, and chronic pancreatitis who presented to [facility] with progressively worsening SOB/dry cough and chest pain. While here, patient was worked up for possible ACS, and was found to have normal EKGs and negative trops. An Echo was obtained and was notable for an EF wnl, mild TR, mild Pulm HTN, and mild-mod MR. She was also treated for intermittent hypokalemia, which was repleted as needed. She was also seen by Pulm while here, and was treated with Steroids (converted from IV to PO), Nebulizers, Antibiotics, anti-tussives, and nightly BiPAP. A 6-minute walk test was also performed, which the patient passed, indicating that she did NOT need home O2. After discussion with Pulm, patient was cleared for discharge on a 5-day course of Zithromax and a steroid taper. At patient's request, she was also given a script for short-term coverage of her anxiety with Xanax (2-day supply) until she could f/u with her PMD. She was also instructed to follow up with her PMD, her Electric Dolly Operator, and to establish and follow up with a Full Time Staff Interpreter. She was instructed to fill and take all scripts as filled. She expressed understanding and agreement with these instructions. She was then provided an opportunity to ask any questions, which were answered to her satisfaction. She was then discharged. - Date & Time of H&P Date of H&P: 02/24/17 Time of H&P: 21:54 Discharge Exam - Head Exam Head Exam: ATRAUMATIC, NORMAL INSPECTION, NORMOCEPHALIC - Eye Exam Eye Exam: EOMI, Normal appearance. absent: Conjunctival injection, Scleral icterus Pupil Exam: absent: Irregular, Unequal - ENT Exam ENT Exam: Mucous Membranes Moist - Neck Exam Neck exam: Full Rom - Respiratory Exam Respiratory Exam: Decreased Breath Sounds (decreased breath sounds in all quadrants, but normal breath sounds still present in all quadrants), Prolonged Expiratory Phase, Wheezes (faint end-expiratory wheezes at bilateral bases). absent: Accessory Muscle Use, Chest Wall Tenderness, Rales, Rhonchi, Respiratory Distress, Stridor - Cardiovascular Exam Cardiovascular Exam: REGULAR RHYTHM, RRR, +S1, +S2. absent: Bradycardia, Tachycardia, Irregular Rhythm, JVD, +S4 - GI/Abdominal Exam GI & Abdominal Exam: Normal Bowel Sounds, Soft, Tenderness (mild diffuse tenderness). absent: Diminished Bowel Sounds, Distended (obese, but not distended), Firm, Hyperactive Bowel Sounds, Hypoactive Bowel Sounds, Rigid - Extremities Exam Additional comments: Trace pitting edema in bilateral LE No gross or grossly asymmetric swelling/erythema ROM intact and appropriate in bilateral LE Unable to palpate B/L LE distal pulses - Neurological Exam Neurological exam: Alert, Oriented x3 - Psychiatric Exam Psychiatric exam: Anxious, Normal Affect - Skin Skin Exam: Dry, Intact, Normal Color, Warm Discharge Plan - Discharge Medications Prescriptions: ALPRAZolam [Xanax] 0.25 mg PO BID PRN #4 tab PRN Reason: Anxiety Azithromycin [Zithromax] 500 mg PO DAILY #5 tab predniSONE [Prednisone] 20 mg PO DAILY #28 tab - Follow Up Plan Condition: FAIR Disposition: HOME/ ROUTINE Instructions: Chest Pain (DC), COPD (Chronic Obstructive Pulmonary Disease) (DC ), Dyspnea (GEN) Additional Instructions: Please fill and take all medications as prescribed. Please follow up with your Primary Medical Doctor within 1 week of discharge. Please establish and follow up with a corporate communications manager. Please follow up with all specialists listed within the time frame instructed. Referrals: Radha Hernandez MD [Primary Care Provider] - 1 Week Santosh Daniel MD [Staff Provider] - 1 Week <Yuri Shetty - Last Filed: 03/02/17 12:25> Provider - Provider Date of Admission: 02/25/17 09:41 Attending physician: Yuri Shetty MD Primary care physician: Radha Hernandez MD Hospital Course - Lab Results Lab Results: Most Recent Lab Values WBC 8.4 10^3/ul (4.5-11.0) 03/01/17 08:20 RBC 4.74 10^6/uL (3.5-6.1) 03/01/17 08:20 Hgb 13.3 gm/dL (12.0-16.0) 03/01/17 08:20 Hct 38.5 % (36.0-48.0) 03/01/17 08:20 MCV 81.2 fL (80.0-105.0) 03/01/17 08:20 MCH 28.1 pg (25.0-35.0) 03/01/17 08:20 MCHC 34.5 g/dl (31.0-37.0) 03/01/17 08:20 RDW 13.1 % (11.5-14.5) 03/01/17 08:20 Plt Count 168 10^3/uL (120.0-450.0) 03/01/17 08:20 MPV 10.6 fl (7.0-11.0) 03/01/17 08:20 Gran % 53.6 % (50.0-68.0) 03/01/17 08:20 Lymph % (Auto) 38.3 % (22.0-35.0) H 03/01/17 08:20 [place] % (Auto) 6.6 % (1.0-6.0) H 03/01/17 08:20 Eos % (Auto) 1.3 % (1.5-5.0) L 03/01/17 08:20 Baso % (Auto) 0.2 % (0.0-3.0) 03/01/17 08:20 Gran # 4.48 (1.4-6.5) 03/01/17 08:20 Lymph # 3.2 (1.2-3.4) 03/01/17 08:20 [place] # 0.6 (0.1-0.6) 03/01/17 08:20 Eos # 0.1 (0.0-0.7) 03/01/17 08:20 Baso # 0.02 K/mm3 (0.0-2.0) 03/01/17 08:20 PT 10.1 Seconds (9.9-11.8) 02/24/17 16:40 INR 0.94 (0.93-1.08) 02/24/17 16:40 APTT 27.1 Seconds (23.7-30.8) 02/24/17 16:40 pCO2 34 mm/Hg (35-45) L 02/27/17 13:45 pO2 121.0 mm/Hg (80-100) H 02/27/17 13:45 HCO3 25.9 mmol/L (21-28) 02/27/17 13:45 ABG pH 7.49 (7.35-7.45) H 02/27/17 13:45 ABG Total CO2 26.9 mmol.L (22-28) 02/27/17 13:45 ABG O2 Saturation 99.1 % (95-98) H 02/27/17 13:45 ABG Base Excess 2.9 mmol/L (-2.0-3.0) 02/27/17 13:45 ABG Hemoglobin 13.4 g/dL (11.7-17.4) 02/27/17 13:45 ABG Carboxyhemoglobin 1.5 % (0.5-1.5) 02/27/17 13:45 POC ABG HHb (Measured) 0.9 % (0-5) 02/27/17 13:45 ABG Methemoglobin 1.2 % (0.0-3.0) 02/27/17 13:45 Hgb O2 Saturation 96.5 % (95.0-98.0) 02/27/17 13:45 FiO2 28.0 % 02/27/17 13:45 Sodium 137 mmol/L (132-148) 03/01/17 08:20 Potassium 3.4 mmol/L (3.6-5.0) L 03/01/17 08:20 Chloride 99 mmol/L (98-107) 03/01/17 08:20 Carbon Dioxide 29 mmol/L (21-33) 03/01/17 08:20 Anion Gap 12 (10-20) 03/01/17 08:20 BUN 19 mg/dL (7-21) 03/01/17 08:20 Creatinine 0.5 mg/dL (0.5-1.4) 03/01/17 08:20 Est GFR ( Amer) > 60 03/01/17 08:20 Est GFR (Non-Af Amer) > 60 03/01/17 08:20 POC Glucose (mg/dL) 160 mg/dL (65-110) H 03/01/17 05:52 Random Glucose 125 mg/dL (70-110) H 03/01/17 08:20 Calcium 9.6 mg/dL (8.4-10.5) 03/01/17 08:20 Phosphorus 5.2 mg/dL (2.5-4.5) H 03/01/17 08:20 Magnesium 2.0 mg/dL (1.7-2.2) 03/01/17 08:20 Total Bilirubin 0.7 mg/dL (0.2-1.3) 03/01/17 08:20 AST 12 U/L (15-39) L 03/01/17 08:20 ALT 20 U/L (7-56) 03/01/17 08:20 Alkaline Phosphatase 82 U/L (38-133) 03/01/17 08:20 Lactate Dehydrogenase 357 U/L (333-699) 02/25/17 07:00 Total Creatine Kinase 47 U/L (35-230) 02/25/17 07:00 Troponin I < 0.01 ng/mL 02/25/17 07:00 NT-Pro-B Natriuret Pep 54.7 pg/mL (0-450) 02/24/17 16:40 Total Protein 6.7 g/dL (5.8-8.3) 03/01/17 08:20 Albumin 3.8 g/dL (3.0-4.8) 03/01/17 08:20 Globulin 2.9 gm/dL 03/01/17 08:20 Albumin/Globulin Ratio 1.3 (1.1-1.8) 03/01/17 08:20 Lipase 69 U/L (23-300) 02/24/17 16:40 Urine Color Straw (YELLOW) 02/24/17 18:25 Urine Appearance Sl cloudy (CLEAR) 02/24/17 18:25 Urine pH 6.5 (4.7-8.0) 02/24/17 18:25 Ur Specific [place] <= 1.005 (1.005-1.035) 02/24/17 18:25 Urine Protein Negative mg/dL (<30 mg/dL) 02/24/17 18:25 Urine Glucose (UA) >=1000 mg/dL (NEGATIVE) 02/24/17 18:25 Urine Ketones 15 mg/dL (NEGATIVE) H 02/24/17 18:25 Urine Blood Trace-intact (NEGATIVE) H 02/24/17 18:25 Urine Nitrate Negative (NEGATIVE) 02/24/17 18:25 Urine Bilirubin Negative (NEGATIVE) 02/24/17 18:25 Urine Urobilinogen 0.2 E.U./dL (<1 E.U./dL) 02/24/17 18:25 Ur Leukocyte Esterase Small [place]/uL (NEGATIVE) H 02/24/17 18:25 Urine RBC 0 - 2 /hpf (0-2) 02/24/17 18:25 Urine WBC 5 - 10 /hpf (0-6) 02/24/17 18:25 Ur Epithelial Cells 0 - 2 /hpf (0-5) 02/24/17 18:25 Urine Bacteria Few (NEG) 02/24/17 18:25 Attending/Attestation - Attestation I have personally seen and examined this patient.: Yes I have fully participated in the care of the patient.: Yes I have reviewed all pertinent clinical information, including history, physical exam and plan: Yes Notes (Text): 03/01/17 56 year old female with multiple medical problems who was admitted for COPD exacerbation. Symptoms slowly improved with iv steroids which were tapered with duonebs and antibiotics. She was followed by her tar roofer as well while in hospital. She was inquiring about home oxygen but she did pass the 6 min walk test. Overall her symptoms improved. She is discharged home to follow up with her pmd and tar roofer. Continue with tapering steroids and antibiotics as prescribed. Follow up with psychiatrist or with [facility]. Yuri Shetty MD Hospitalist.
== END 2017-03-01 19:36 | disposition home or self-care (01) | DRG 88 ==
LOC: ED 16:06 → ERH 18:59 → 3RNO 21:04 → OBSVTOIN 02-25 09:41
PROVIDERS: ADMIT Internal Medicine; ATTEND Internal Medicine
DX: J44.1 Chronic obstructive pulmonary disease with (acute) exacerbation (principal); I27.2 Other secondary pulmonary hypertension; E11.65 Type 2 diabetes mellitus with hyperglycemia; J45.901 Unspecified asthma with (acute) exacerbation; K86.1 Other chronic pancreatitis; L03.116 Cellulitis of left lower limb; E11.43 Type 2 diabetes mellitus with diabetic autonomic (poly)neuropathy; E87.6 Hypokalemia; K31.84 Gastroparesis; E66.01 Morbid (severe) obesity due to excess calories; F41.9 Anxiety disorder, unspecified; R21 Rash and other nonspecific skin eruption; B36.9 Superficial mycosis, unspecified; E03.9 Hypothyroidism, unspecified; E78.00 Pure hypercholesterolemia, unspecified; E78.5 Hyperlipidemia, unspecified; I10 Essential (primary) hypertension; T38.0X5A Adverse effect of glucocorticoids and synthetic analogues, initial encounter; Z79.899 Other long term (current) drug therapy; Z86.39 Personal history of other endocrine, nutritional and metabolic disease; D25.9 Leiomyoma of uterus, unspecified; Z88.0 Allergy status to penicillin; Z88.2 Allergy status to sulfonamides; Z88.8 Allergy status to other drugs, medicaments and biological substances; Z88.6 Allergy status to analgesic agent; Z91.012 Allergy to eggs; Z91.040 Latex allergy status; R40.2412 Glasgow coma scale score 13-15, at arrival to emergency department; R07.9 Chest pain, unspecified; Z68.42 Body mass index [BMI] 45.0-49.9, adult

== ENCOUNTER 2019-02-21 16:38 | Inpatient (IN) | payer MEDICAID ==
[2019-02-21] MEDS ORDERED: Albuterol-Ipratrop 3 mg / 0.5 (3 ml) UD IH STA (17:05)
--- NOTE | 2019-02-21 17:32 | ED PDOC ---
Arrival/HPI - History of Present Illness Narrative History of Present Illness (Text): 02/21/19 17:14 CC: sob HPI: 58 yo female w/ PMH of HTN, hypercholesterolemia, DM, Asthma, COPD, hypothyroidism, anxiety, depression and chronic pancreatitis comes to ED for evaluation after being sent by [facility]SP[facility] [employer]AD at Dr. Ramos's office. Patient has been having shortness of breath for past three days for which she has been taking her home albuterol. Patient did not come earlier because she had appointment with pmd and was trying to schedule appointment with her power lineworker. Patient states that yesterday she noticed she was having chills but did not record a temperature. Patient also reports cough with greenish sputum production that began yesterday. Denies sick contacts. Patient also reports that she has new onset shoulder pain. Patient states she sleeps on her shoulder which causes her to put a lot of pressure in these certain areas. Patient states that the rashes and wounds are related to the pressure put on them during sleep. Patient also admits to left arm swelling. Denies fevers, chills, chest pain, n/v, constipatio n or diarrhea, and dysuria. Admits to sob, cough, sputum production, pain in shoulder. Time/Duration: > week Symptom Onset: Sudden Symptom Course: Worsening Quality: Pressure Severity Level: 7 Activities at Onset: Rest Context: Sitting <Yolanda Carlson - Last Filed: 02/21/19 18:45> <Pinky Fitzgerald - Last Filed: 02/21/19 18:56> - General Chief Complaint: Shortness Of Breath Time Seen by Provider: 02/21/19 16:48 Past Medical History - Provider Review Nursing Documentation Reviewed: Yes - Infectious Disease Hx of Infectious Diseases: None - Tetanus Immunization Tetanus Immunization: Unknown - Reproductive Menopause: Yes - Cardiac Hx Cardiac Disorders: No Hx Hypertension: Yes - Pulmonary Hx Chronic Obstructive Pulmonary Disease (COPD): Yes - Neurological Hx Neurological Disorder: No - HEENT Hx HEENT Disorder: No - Renal Hx Renal Disorder: No (Pt states she has had problems with her kidneys lately.) - Endocrine/Metabolic Hx Endocrine Disorders: Yes Hx Diabetes Mellitus Type 2: Yes Hx Hyperthyroidism: Yes - Hematological/Oncological Hx Blood Disorders: No - Integumentary Hx Dermatological Disorder: No - Musculoskeletal/Rheumatological Hx Musculoskeletal Disorders: No - Gastrointestinal Hx Gastrointestinal Disorders: Yes (gastroparesis) Hx Pancreatitis: Yes (Chronic) - Genitourinary/Gynecological Hx Genitourinary Disorders: Yes (Fibroids) - Psychiatric Hx Psychophysiologic Disorder: Yes Hx Anxiety: Yes Hx Depression: Yes Hx Substance Use: No - Surgical History Hx Dilation and Curettage: Yes Other/Comment: 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 - Anesthesia Hx Anesthesia: Yes Hx Anesthesia Reactions: Yes Hx Malignant Hyperthermia: No - Suicidal Assessment Feels Threatened In Home Enviroment: No <AldoMadaser - Last Filed: 02/21/19 18:45> Family/Social History Family/Social History: No Known Family HX Smoking Status: Never Smoked Hx Alcohol Use: No Hx Substance Use: No Hx Substance Use Treatment: No <AldoMadaser - Last Filed: 02/21/19 18:45> Allergies/Home Meds <Aldo,Madaser - Last Filed: 02/21/19 18:45> <Pinky Fitzgerald - Last Filed: 02/21/19 18:56> Allergies/Adverse Reactions: Allergies ketorolac tromethamine [From Toradol] Allergy (Mild, Verified 02/24/17 16:12) pruritis amoxicillin Allergy (Verified 02/24/17 16:12) ITCHING EGG Allergy (Verified 02/24/17 16:12) ITCHING gabapentin Allergy (Verified 02/24/17 16:12) ITCHING latex Allergy (Verified 02/24/17 16:12) RASH Sulfa (Sulfonamide Antibiotics) Allergy (Verified 02/24/17 16:12) ITCHING Home Medications: Home Meds Medication Instructions Recorded Confirmed Albuterol 0.083% [Albuterol 0.083% 3 ml IH Q6 PRN 10/31/12 05/27/17 Inhal Peggy (2.5 mg/3 ml) UD] Albuterol HFA [Ventolin HFA 90 0.09 mg IH Q6 PRN 10/31/12 05/27/17 mcg/actuation (8 g)] Insulin Glargine,Hum.rec.anlog 30 unit SC HS 10/31/12 05/27/17 [Lantus] Montelukast [Singulair] 10 mg PO DAILY 10/31/12 05/27/17 PARoxetine [Paxil] 30 mg PO DAILY 10/31/12 05/27/17 Insulin Human NPH/Reg [HumuLIN 30 units SC AC 01/04/13 05/27/17 70/30 (NPH/Reg)] Atenolol [Tenormin] 25 mg PO DAILY 07/23/16 05/27/17 Cetirizine HCl [Zyrtec] 10 mg PO DAILY 07/23/16 05/27/17 Ergocalciferol (Vitamin D2) 50,000 units PO .ONCE PER WEEK 07/23/16 05/27/17 [Vitamin D] Fluticasone/Salmeterol 500/50 1 inh INH BID 07/23/16 05/27/17 [Advair Diskus 500/50] Propylthiouracil 150 mg PO TID 07/23/16 05/27/17 Tiotropium [place] Inhaler 1 inh INH DAILY 07/23/16 05/27/17 [Spiriva Inhalation Handihaler Device] Lipase/Protease/Amylase [Creon Dr 12,000 mg PO TID 01/15/17 05/27/17 12,000 Units Capsule] Tiotropium [Spiriva] 1 cap INH DAILY 01/15/17 05/27/17 Review of Systems - Review of Systems Constitutional: Normal. absent: Fatigue, Weight Change, Fevers Eyes: Normal. absent: Vision Changes, Photophobia ENT: Normal. absent: Hearing Changes, Tinnitus, Sore Throat, Rhinorrhea, Epistaxis Respiratory: SOB, Cough, Sputum, Wheezing Cardiovascular: DE LEÓN. absent: Chest Pain, Palpitations, Calf Pain Gastrointestinal: absent: Abdominal Pain, Stool Changes, Constipation, Diarrhea, Nausea Genitourinary Female: Normal. absent: Dysuria, Frequency, Hematuria, Vaginal Bleeding Musculoskeletal: Arthralgias. absent: Normal, Back Pain, Neck Pain Skin: Cellulitis. absent: Normal, Rash, Pruritis Neurological: Normal. absent: Headache, Dizziness, Focal Weakness, Disequilibrium Endocrine: Normal. absent: Diaphoresis, Polyuria, Polydipsia Psychiatric: Normal. absent: Anxiety, Depression <Yolanda Carlson - Last Filed: 02/21/19 18:45> Physical Exam Vital Signs Reviewed: Yes Vital Signs Temp Pulse Resp BP Pulse Ox 02/21/19 17:01 98 F 80 20 123/87 100 Temperature: Afebrile Blood Pressure: Normal Pulse: Regular Respiratory Rate: Normal Appearance: Positive for: Non-Toxic, Ill-Appearing, Uncomfortable Pain Distress: Mild Mental Status: Positive for: Alert and Oriented X 3 - Systems Exam Head: Present: Atraumatic, Normocephalic Pupils: Present: PERRL Extroacular Muscles: Present: EOMI Mouth: Present: Moist Mucous Membranes Respiratory/Chest: Present: Respiratory Distress, Wheezes, Decreased Breath Sounds, Tachypneic. No: Accessory Muscle Use, Retracting, Rhonchi Cardiovascular: Present: Regular Rate and Rhythm, Normal S1, S2. No: Murmurs, Tachycardic Abdomen: Present: Normal Bowel Sounds. No: Tenderness, Distention, Rebound, Guarding Upper Extremity: Present: Tenderness (right shoulder tenderness) Lower Extremity: Present: Normal Inspection. No: Edema, CALF TENDERNESS, Cyanosis Skin: Present: Warm, Dry, Normal Color, Erythematous, Other (possible cellulitis at site of right sholder, multiple skin wounds ) Psychiatric: Present: Alert, Oriented x 3, Normal Insight, Normal Concentration <Yolanda Carlson - Last Filed: 02/21/19 18:45> Vital Signs Temp Pulse Resp BP Pulse Ox 02/21/19 17:01 98 F 80 20 123/87 100 <Pinky Fitzgerald - Last Filed: 02/21/19 18:56> Medical Decision Making ED Course and Treatment: 02/21/19 17:40 Impression 58 yo female w/ PMH of HTN, hypercholesterolemia, DM, Asthma, COPD, hypothyroidism, anxiety, depression and chronic pancreatitis comes to ED for evaluation after being sent by TRANSPORTATION LEAD at Dr. Ramos's office. Plan -CBC -CMP -EKG -CXR -Flexeril -Ibuprofen -N.C -Duoneb -IV steroids Prior Visits All prior documentation and lab work reviewed prior to evaluation Progress Notes pending clinical response to COPD tx and labs 02/21/19 18:08 added Mag sulfate for COPD tx cocktail patient likely will need admission for past history of needing bipap and intubation as per patient for COPD when treated inadequately pending labs for discussion with hospitalist team 02/21/19 18:45 pending callback from hospitalist team - RAD Interpretation Radiology Orders: 02/21/19 17:02 CHEST PORTABLE [RAD] Stat - Medication Orders Current Medication Orders: Discontinued Medications Albuterol/Ipratropium (Duoneb 3 Mg/0.5 Mg (3 Ml) Ud) 3 ml IH STAT STA Stop: 02/21/19 17:06 Methylprednisolone (Solu-Medrol) 125 mg IVP STAT STA Stop: 02/21/19 17:06 <Yolanda Carlson - Last Filed: 02/21/19 18:45> ED Course and Treatment: 02/21/19 18:05 Patient seen by resident and then evaluated by me. Presenting with shortness of breath and wheezing. EKG shows NSR at 76bpm with normal intervals and no st changes. Cxray negative. Labs reviewed. Patient has hx of intubations and is still wheezing after duonebs and steroids. Will transfer to hospitalist. - RAD Interpretation Radiology Orders: 02/21/19 17:02 CHEST PORTABLE [RAD] Stat - Medication Orders Current Medication Orders: Discontinued Medications Albuterol/Ipratropium (Duoneb 3 Mg/0.5 Mg (3 Ml) Ud) 3 ml IH STAT STA Stop: 02/21/19 17:06 Last Admin: 02/21/19 17:57 Dose: 3 ml Cyclobenzaprine HCl (Flexeril) 5 mg PO STAT STA Stop: 02/21/19 17:34 Last Admin: 02/21/19 17:58 Dose: 5 mg Ibuprofen (Motrin Tab) 600 mg PO STAT STA Stop: 02/21/19 17:34 Last Admin: 02/21/19 17:57 Dose: 600 mg Methylprednisolone (Solu-Medrol) 125 mg IVP STAT STA Stop: 02/21/19 17:06 Last Admin: 02/21/19 17:59 Dose: 125 mg IVP Administration Document 02/21/19 17:59 ROBINA (Rec: 02/21/19 17:59 ROBINA [id number]) Charges for Administration # of IVP Administrations 1 <Pinky Fitzgerald - Last Filed: 02/21/19 18:56> Disposition/Present on Arrival - Present on Arrival History of DVT/PE: No History of Uncontrolled Diabetes: No Urinary Catheter: No History of Decub. Ulcer: No History Surgical Site Infection Following: None <Yolanda Carlson - Last Filed: 02/21/19 18:45> - Present on Arrival Any Indicators Present on Arrival: No - Disposition Have Diagnosis and Disposition been Completed?: Yes Disposition Time: 18:56 Patient Plan: Observation <Pinky Fitzgerald - Last Filed: 02/21/19 18:56> - Disposition Diagnosis: Acute exacerbation of COPD with asthma Disposition: HOSPITALIZED Condition: FAIR
--- NOTE | 2019-02-21 17:47 | RAD ---
Date of service: 02/21/2019 HISTORY: Shortness of breath. COMPARISON: 02/27/2017 FINDINGS: LUNGS: No active pulmonary disease. PLEURA: No significant pleural effusion identified, no pneumothorax apparent. CARDIOVASCULAR: No atherosclerotic calcification present Normal. OSSEOUS STRUCTURES: No significant abnormalities. VISUALIZED UPPER ABDOMEN: Normal. OTHER FINDINGS: None. IMPRESSION: No active disease. No significant interval change compared to the prior examination(s).
[2019-02-21] MEDS ORDERED: Magnesium Sulfate 1 gm in D5W 1 GM/100 ML BAG IVPB ONE (18:06)
--- NOTE | 2019-02-21 18:11 | CARD ---
APPROVED REPORT Date of service: 02/21/2019 EKG Measurement Heart [id number] [id number] [id number] <Conclusion> Normal sinus rhythm Slow R wave progression V1-3 Normal ECG
[2019-02-21 18:23] LABS: BASO # 0.03 K/mm3 (0.0-2.0); BASO % 0.5 % (0.0-3.0); EOS # 0.1 (0.0-0.7); EOS % 2.3 % (1.5-5.0); HEMOGLOBIN 13.7 g/dL (12.0-16.0); LYMPH # 1.6 (1.2-3.4); LYMPH % 25.4 % (22.0-35.0); MEAN CELL VOLUME 81.3 fl (80.0-105.0); MEAN CORPUSCULAR HEMOGLOBIN 27.3 pg (25.0-35.0); MEAN CORPUSCULAR HGB CONC 33.6 g/dl (31.0-37.0); MEAN PLATELET VOLUME 11.3 fl (7.0-11.0); MONO # 0.4 (0.1-0.6); MONO % 6.5 % (1.0-6.0); RBC 5.02 10^6/uL (3.5-6.1); RED CELL DISTRIBUTION WIDTH 13.1 % (11.5-14.5); WHITE BLOOD COUNT 6.1 10^3/uL (4.5-11.0)
[2019-02-21 18:42] LABS: ALB/GLOB RATIO 1.3 (1.1-1.8); BLOOD UREA NITROGEN 13 mg/dL (7-21); CALCIUM 9.2 mg/dL (8.4-10.5); GFR NON-AFRICAN AMERICAN > 60
[2019-02-21 18:57] LABS: ALT/SGPT 16 U/L (7-56); AST/SGOT 20 U/L (14-36)
[2019-02-21] MEDS: Albuterol-Ipratrop 3 mg / 0.5 (3 ml) UD IH SCH ×4 (19:15→20:05)
--- NOTE | 2019-02-21 19:54 | CP.PCM.HP ---
<MarisabelGilmar - Last Filed: 02/21/19 22:34> History of Present Illness - History of Present Illness History of Present Illness: Gilmar Petit DO PGY1 H&P for Dr Christina ParedesC: SOB x3 days 58 y/o female with PMH of HTN, HLD, DM, Asthma, COPD, hypothyroidism, anxiety, chronic pancreatitis, depression presents to the ED with progressive SOB x3 days associated with productive cough with green/yellow sputum, chills. She denies fever, chest pain, palpitations. Patient also reports superficial celio-umbilical abdominal skin wounds for the past 5 weeks at insulin injection sites associated with pus and malodor. She was advised to use topical antibiotics neomycin/bacitracin with no resolution. Patient also reports right upper extremity swelling/heaviness for the past week. She admits to sleeping on right side of her body. Denies associated skin color changes, muscle weakness, numbness in that arm. She was prescribed flexeril with no relief of symptoms. Patient admits to recent sick grandchild with URI symptoms at home but denies recent travel, recent sickness. She denies nausea, vomiting, diarrhea, abdominal pain, changes in bowel movement, urinary symptoms, focal neurological symptoms. 12 points ROS reviewed with pertinent positives as above PMH: HTN, HLD, DM, Asthma, COPD, hypothyroidism, anxiety, depression, chronic pancreatitis PSH: left parotid gland tumor removal Meds: as per EMR All: PCN (rash), gabapentin, SH: denies alcohol, smoking, drug use PMD: Dr Hernandez Cardio: Dr Lena Falcon: Dr Daniel Present on Admission - Present on Admission Any Indicators Present on Admission: No Past Patient History - Infectious Disease Hx of Infectious Diseases: None - Tetanus Immunizations Tetanus Immunization: Unknown - Past Social History Smoking Status: Never Smoked - CARDIAC Hx Cardiac Disorders: No Hx Hypertension: Yes - PULMONARY Hx Chronic Obstructive Pulmonary Disease (COPD): Yes - NEUROLOGICAL Hx Neurological Disorder: No - HEENT Hx HEENT Problems: No - RENAL Hx Chronic Kidney Disease: No (Pt states she has had problems with her kidneys lately.) - ENDOCRINE/METABOLIC Hx Endocrine Disorders: Yes Hx Diabetes Mellitus Type 2: Yes Hx Hyperthyroidism: Yes - HEMATOLOGICAL/ONCOLOGICAL Hx Blood Disorders: No - INTEGUMENTARY Hx Dermatological Problems: No - MUSCULOSKELETAL/RHEUMATOLOGICAL Hx Musculoskeletal Disorders: No - GASTROINTESTINAL Hx Gastrointestinal Disorders: Yes (gastroparesis) Hx Pancreatitis: Yes (Chronic) - GENITOURINARY/GYNECOLOGICAL Hx Genitourinary Disorders: Yes (Fibroids) - PSYCHIATRIC Hx Psychophysiologic Disorder: Yes Hx Anxiety: Yes Hx Depression: Yes Hx Substance Use: No - SURGICAL HISTORY Hx Dilation and Curettage: Yes Other/Comment: 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 - ANESTHESIA Hx Anesthesia: Yes Hx Anesthesia Reactions: Yes Hx Malignant Hyperthermia: No Meds Allergies/Adverse Reactions: Allergies Allergy/AdvReac Type Severity Reaction Status Date / Time ketorolac tromethamine Allergy Mild pruritis Verified 02/24/17 16:12 [From Toradol] amoxicillin Allergy ITCHING Verified 02/24/17 16:12 EGG Allergy ITCHING Verified 02/24/17 16:12 gabapentin Allergy ITCHING Verified 02/24/17 16:12 latex Allergy RASH Verified 02/24/17 16:12 Sulfa (Sulfonamide Allergy ITCHING Verified 02/24/17 16:12 Antibiotics) Physical Exam - Constitutional Appears: Well, Non-toxic, No Acute Distress - Head Exam Head Exam: ATRAUMATIC, NORMAL INSPECTION, NORMOCEPHALIC - Eye Exam Eye Exam: EOMI, Normal appearance, PERRL Pupil Exam: NORMAL ACCOMODATION, PERRL - ENT Exam ENT Exam: Mucous Membranes Moist, Normal Oropharynx - Neck Exam Neck exam: Positive for: Full Rom, Normal Inspection. Negative for: Meningismus , Thyromegaly - Respiratory Exam Respiratory Exam: Prolonged Expiratory Phase, Wheezes. absent: Rales, Rhonchi, Respiratory Distress, Stridor - Cardiovascular Exam Cardiovascular Exam: +S1, +S2. absent: Tachycardia, Gallop, JVD, Rubs - GI/Abdominal Exam GI & Abdominal Exam: Normal Bowel Sounds, Soft. absent: Guarding, Hernia, Mass, Organomegaly, Rebound, Rigid, Tenderness Additional comments: multiple areas of superficial skin infection. some scabbed, minimal discharge, minimal erythema noted around skin lesions - Extremities Exam Extremities exam: Positive for: full ROM, normal capillary refill, pedal pulses present. Negative for: calf tenderness, pedal edema Additional comments: right upper extremity swelling compared to the left side with some superficial skin lesions on the back of the right shoulder - Back Exam Back exam: FULL ROM, NORMAL INSPECTION. absent: CVA tenderness (L), CVA tenderness (R), tenderness - Neurological Exam Neurological exam: Alert, CN II-XII Intact, Oriented x3, Reflexes Normal - Psychiatric Exam Psychiatric exam: Normal Affect, Normal Mood - Skin Skin Exam: Dry, Normal Color, Warm Additional comments: skin wounds on anterior abdominal wall and right shoulder Results - Vital Signs Recent Vital Signs: Last Vital Signs Temp 98 F 02/21/19 17:01 Pulse 80 02/21/19 19:00 Resp 18 02/21/19 19:00 BP 128/76 02/21/19 19:00 Pulse Ox 100 02/21/19 19:00 - Labs Result Diagrams: 02/21/19 18:17 02/21/19 18:17 Labs: Laboratory Results - last 24 hr 02/21/19 02/21/19 18:17 18:17 WBC 6.1 RBC 5.02 Hgb 13.7 Hct 40.8 MCV 81.3 MCH 27.3 MCHC 33.6 RDW 13.1 Plt Count 174 MPV 11.3 H Neut % (Auto) 65.3 Lymph % (Auto) 25.4 Long % (Auto) 6.5 H Eos % (Auto) 2.3 Baso % (Auto) 0.5 Lymph # (Auto) 1.6 Long # (Auto) 0.4 Eos # (Auto) 0.1 Baso # (Auto) 0.03 Absolute Neuts (auto) 4.01 Sodium 139 Potassium 4.3 Chloride 105 Carbon Dioxide 25 Anion Gap 13 BUN 13 Creatinine 0.4 L Est GFR ( Amer) > 60 Est GFR (Non-Af Amer) > 60 Random Glucose 274 H Calcium 9.2 Total Bilirubin 0.7 AST 20 ALT 16 Alkaline Phosphatase 79 Total Protein 7.1 Albumin 4.0 Globulin 3.1 Albumin/Globulin Ratio 1.3 Assessment & Plan - Assessment and Plan (Free Text) Assessment: 58 y/o female with PMH of HTN, HLD, DM, Asthma, COPD, hypothyroidism, anxiety, depression, chronic pancreatitis presents to the ED with progressive SOB x3 days. Admitted for COPD exacerbation Plan: Acute COPD exacerbation: -CXR: NAD -EKG:NSR @76bmp, no ST-T wave changes -started solumedrol 40q8, duoneb oliverio/prn, brovana, pulmicort, singulair -started levaquin 750 qd -O2 NC prn Right shoulder edema: -right arm US -supportive care, elevate arm Superficial anterior abdominal skin wound: -wound cx -wound care -doxycycline 100 q12 -topical mupirocin DM2: -accucheck -A1C -ISS-M -levemir 20u bid HTN: -continue home med atenolol, HCTZ, lasix -continue home med KCl 20 mg qd HLD: -continue home med simvastatin 40 Chronic pancreatitis: -continue home pancreatic enzymes -serum lipase Vitamin D deficiency: -continue home med ergocalciferol q7d -vit D level Hypothyroidism: -continue home med thyroxine -TSH level PPX: -DVT: lovenx, SCD -GI: protonix -diabetic diet -PT eval/treat Case reviewed and plan discussed with attending Dr Christina Petit, DO <Merly Vasquez - Last Filed: 02/22/19 01:14> Results - Vital Signs Recent Vital Signs: Last Vital Signs Temp 98.6 F 02/21/19 22:00 Pulse 82 02/21/19 23:19 Resp 20 02/21/19 22:00 BP 118/80 02/21/19 22:00 Pulse Ox 95 02/21/19 22:00 - Labs Result Diagrams: 02/21/19 18:17 02/21/19 18:17 Labs: Laboratory Results - last 24 hr 02/21/19 02/21/19 02/21/19 18:17 18:17 21:53 WBC 6.1 RBC 5.02 Hgb 13.7 Hct 40.8 MCV 81.3 MCH 27.3 MCHC 33.6 RDW 13.1 Plt Count 174 MPV 11.3 H Neut % (Auto) 65.3 Lymph % (Auto) 25.4 Long % (Auto) 6.5 H Eos % (Auto) 2.3 Baso % (Auto) 0.5 Lymph # (Auto) 1.6 Long # (Auto) 0.4 Eos # (Auto) 0.1 Baso # (Auto) 0.03 Absolute Neuts (auto) 4.01 Sodium 139 Potassium 4.3 Chloride 105 Carbon Dioxide 25 Anion Gap 13 BUN 13 Creatinine 0.4 L Est GFR ( Amer) > 60 Est GFR (Non-Af Amer) > 60 POC Glucose (mg/dL) 391 H Random Glucose 274 H Calcium 9.2 Total Bilirubin 0.7 AST 20 ALT 16 Alkaline Phosphatase 79 Total Protein 7.1 Albumin 4.0 Globulin 3.1 Albumin/Globulin Ratio 1.3 Attending/Attestation - Attestation I have personally seen and examined this patient.: Yes I have fully participated in the care of the patient.: Yes I have reviewed all pertinent clinical information: Yes Notes (Text): 02/22/19 00:57 Pt seen with the resident by the bedside. Case discussed in detail. Documentation reviewed. Note: pt has history of hypothyroidism,however,she is not on any meds. Pt was placed on levaquin 500 mg daily,not on 750 mg as noted in the plan. Lovenox 40 mg sc ordered daily instead of 30 mg sc. Also lipid profile was ordered. Agree with assessment and plan of treatment. 02/22/19 01:10
[2019-02-21] MEDS ORDERED: Insulin Detemir 100 units/ml Vial (Levemir) SC SCH (22:00)
[2019-02-21] MEDS: Enoxaparin 30 mg Syringe SC SCH (22:23)
[2019-02-21] MEDS: MethylPREDNISolone 40 mg Vial IVP SCH (22:23)
[2019-02-21] MEDS: Insulin Reg-MEDIUM-Coverage SC SCH (22:24)
[2019-02-21 22:59] VITALS: BMI 50.3
[2019-02-21] MEDS: Albuterol-Ipratrop 3 mg / 0.5 (3 ml) UD IH PRN (23:16)
[2019-02-22] MEDS ORDERED: Dextrose 50% SYRINGE Inj (50 ml) IV PRN (01:16)
[2019-02-22] MEDS: Albuterol-Ipratrop 3 mg / 0.5 (3 ml) UD IH SCH ×2 (01:42→07:54)
[2019-02-22] MEDS: Albuterol-Ipratrop 3 mg / 0.5 (3 ml) UD IH PRN ×2 (04:05→07:55)
[2019-02-22] MEDS: MethylPREDNISolone 40 mg Vial IVP SCH ×3 (05:06→21:56)
[2019-02-22 06:47] LABS: HEMOGLOBIN 14.1 g/dL (12.0-16.0); MEAN CELL VOLUME 82.8 fl (80.0-105.0); MEAN CORPUSCULAR HGB CONC 32.6 g/dl (31.0-37.0); MEAN PLATELET VOLUME 11.6 fl (7.0-11.0); RBC 5.23 10^6/uL (3.5-6.1); RED CELL DISTRIBUTION WIDTH 13.1 % (11.5-14.5); WHITE BLOOD COUNT 7.3 10^3/uL (4.5-11.0)
[2019-02-22 07:09] LABS: ALB/GLOB RATIO 1.4 (1.1-1.8); ALBUMIN 4.4 g/dL (3.0-4.8); ALT/SGPT 17 U/L (7-56); AST/SGOT 19 U/L (14-36); BLOOD UREA NITROGEN 16 mg/dL (7-21); CALCIUM 9.6 mg/dL (8.4-10.5); GFR NON-AFRICAN AMERICAN > 60; HDL CHOLESTEROL 49 mg/dL (29-60); LIPASE 28 U/L (23-300)
[2019-02-22 07:10] LABS: LDL CHOLESTEROL 153 mg/dL (0-129)
[2019-02-22] MEDS ORDERED: Insulin Detemir 100 units/ml Vial (Levemir) SC SCH ×2 (07:46→11:20)
[2019-02-22] MEDS: Arformoterol 15 mcg/2 ml Inh Sol IH SCH ×2 (07:52→19:37)
[2019-02-22] MEDS: Budesonide 0.25 mg/2 ml Inhal Susp UD IH SCH ×2 (07:54→19:37)
[2019-02-22] MEDS: Insulin Reg-MEDIUM-Coverage SC SCH ×2 (08:37→12:33)
[2019-02-22] MEDS ORDERED: levoFLOXacin 500 mg in D5W 500 MG/100 ML BAG IVPB SCH (10:00)
[2019-02-22] MEDS ORDERED: levoFLOXacin 750 mg in D5W 750 MG/150 ML BAG IVPB SCH (10:00)
[2019-02-22] MEDS ORDERED: Ergocalciferol 50,000 Intl Units Cap PO SCH (10:00)
[2019-02-22] MEDS ORDERED: Pantoprazole 40 mg EC Tab PO SCH (10:00)
[2019-02-22] MEDS ORDERED: MethylPREDNISolone 40 mg Vial IVP SCH (10:00)
[2019-02-22] MEDS: Lidocaine 5% Patch TD SCH (10:02)
[2019-02-22] MEDS: Mupirocin 2% Ointment 15 GM TUBE TOP SCH ×2 (10:03→18:53)
[2019-02-22] MEDS: Enoxaparin 30 mg Syringe SC SCH (10:03)
[2019-02-22] MEDS: Potassium Chloride 20 mEq ER Tab PO SCH (10:03)
[2019-02-22] MEDS: PROTEASE PO SCH ×3 (10:04→18:54)
[2019-02-22] MEDS: AMYLASE PO SCH ×3 (10:04→18:54)
[2019-02-22] MEDS: LIPASE PO SCH ×3 (10:04→18:54)
--- NOTE | 2019-02-22 10:29 | US ---
PROCEDURE: Right upper extremity venous US CLINICAL HISTORY: Arm pain and swelling Evaluate for deep venous thrombosis. PHYSICIAN(S): Hamlet Cook M.D FINDINGS: The visualized rightinternal jugular vein is sonographically normal and compressible. No evidence of obstruction or thrombus is seen. The visualized segments of the right subclavian vein are patent with normal waveforms. No sonographic evidence of obstruction or thrombosis is seen. The visualized deep venous system of the proximal right upper extremity is sonographically normal and compressible. IMPRESSION: 1. No sonographic evidence for deep venous thrombosis in the visualized segments of the right upper extremity.
[2019-02-22] MEDS ORDERED: Insulin Regular 1 UNITS/0.01 ML ML SC STA (11:18)
[2019-02-22] MEDS ORDERED: Insulin Regular 1 UNITS/0.01 ML ML IV STA (11:18)
[2019-02-22] MEDS: Insulin Lispro 1 UNITS/0.01 ML SC SCH ×2 (12:32→18:53)
[2019-02-22] MEDS: guaiFENesin DM 100 mg-10 mg/5 ml UD PO PRN (12:33)
[2019-02-22] MEDS: Levalbuterol 0.63 MG/3 ML Inhal Soln UD IH PRN (13:17)
[2019-02-22] MEDS ORDERED: Insulin Regular 1 UNITS/0.01 ML ML IV ONE (14:16)
--- NOTE | 2019-02-22 14:20 | CP.PCM.PN ---
<Gilmar Petit - Last Filed: 02/22/19 14:12> Subjective - Date & Time of Evaluation Date of Evaluation: 02/22/19 Time of Evaluation: 07:10 - Subjective Subjective: Gilmar Petit DO PGY1. Hospitalist Progress Note for Dr Melchor Patient seen and examined at bedside. Patient reports some improvement in SOB, shoulder pain improving. She denies CP, palpitations, MARAVILLA, dizziness. No acute events overnight. Objective - Vital Signs/Intake and Output Vital Signs (last 24 hours): Temp Pulse Resp BP Pulse Ox 98.3 F 93 H 20 107/72 96 02/22/19 08:06 02/22/19 08:06 02/22/19 08:06 02/22/19 08:06 02/22/19 08:06 - Medications Medications: Current Medications Arformoterol Tartrate (Brovana) 15 mcg IH [id number] [facility] Last Admin: 02/22/19 07:52 Dose: 15 mcg Atenolol (Tenormin) 25 mg PO DAILY [facility] Last Admin: 02/22/19 10:03 Dose: 25 mg Atorvastatin Calcium (Lipitor) 40 mg PO DAILY [facility] Last Admin: 02/22/19 10:02 Dose: 40 mg Budesonide (Pulmicort Respules) 0.25 mg IH [id number] [facility] Last Admin: 02/22/19 07:54 Dose: 0.25 mg Dextrose (Dextrose 50% Inj) 0 ml IV STAT PRN; Protocol PRN Reason: Hypoglycemia Protocol Enoxaparin Sodium (Lovenox) 30 mg SC DAILY [facility]; Protocol Last Admin: 02/22/19 10:03 Dose: 30 mg Ergocalciferol (Drisdol 50,000 Intl Units Cap) 1 cap PO WED [facility] Last Admin: 02/22/19 10:03 Dose: 1 cap Furosemide (Lasix) 20 mg PO QOTHERDAY [facility] Guaifenesin/Dextromethorphan (Robitussin Dm) 5 ml PO Q4H PRN PRN Reason: Cough Last Admin: 02/22/19 12:33 Dose: 5 ml Hydrochlorothiazide (Microzide) 12.5 mg PO DAILY [facility] Last Admin: 02/22/19 10:03 Dose: 12.5 mg Levofloxacin/Dextrose (Levaquin 500mg) 500 mg in 100 mls @ 100 mls/hr IVPB DAILY [facility]; Protocol Last Admin: 02/22/19 10:02 Dose: 100 mls/hr Insulin Detemir (Levemir) 30 unit SC Q12 [facility] Insulin Human Lispro (Humalog) 8 units SC AC [facility] Last Admin: 02/22/19 12:32 Dose: 8 unit Insulin Human Regular (Humulin R Med) 0 units SC ACHS [facility]; Protocol Last Admin: 02/22/19 12:33 Dose: 10 units Levalbuterol HCl (Xopenex) 1.25 mg IH [id number] [facility] Levalbuterol HCl (Xopenex) 0.63 mg IH [id number] PRN PRN Reason: Shortness of Breath Last Admin: 02/22/19 13:17 Dose: 0.63 mg Lidocaine (Lidoderm) 1 ea TD DAILY [facility] Last Admin: 02/22/19 10:02 Dose: 1 ea Methylprednisolone (Solu-Medrol) 40 mg IVP Q8 [facility] Last Admin: 02/22/19 05:06 Dose: 40 mg Montelukast Sodium (Singulair) 10 mg PO HS [facility] Mupirocin (Bactroban Ointment) 0 gm TOP BID [facility] Last Admin: 02/22/19 10:03 Dose: 1 appful Lipase/Protease/Amylase [Creon Dr 12 ,000 Units Capsule] 12,000 Mg (Home Med) 12,000 mg PO TID [facility] Last Admin: 02/22/19 10:04 Dose: Not Given Ondansetron HCl (Zofran Inj) 4 mg IVP Q4H PRN PRN Reason: Nausea/Vomiting Last Admin: 02/22/19 13:05 Dose: 4 mg Pantoprazole Sodium (Protonix Ec Tab) 40 mg PO DAILY [facility] Last Admin: 02/22/19 10:02 Dose: 40 mg Potassium Chloride (K-Dur 20 Meq Er Tab) 20 meq PO DAILY [facility] Last Admin: 02/22/19 10:03 Dose: 20 meq - Labs Labs: 02/22/19 06:00 02/22/19 06:00 - Constitutional Appears: Well, Non-toxic, No Acute Distress - Head Exam Head Exam: ATRAUMATIC, NORMAL INSPECTION, NORMOCEPHALIC - Eye Exam Eye Exam: EOMI, Normal appearance, PERRL Pupil Exam: NORMAL ACCOMODATION, PERRL - ENT Exam ENT Exam: Mucous Membranes Moist, Normal Exam - Neck Exam Neck Exam: Full ROM, Normal Inspection. absent: Lymphadenopathy - Respiratory Exam Respiratory Exam: Decreased Breath Sounds, Wheezes (b/l bases) - Cardiovascular Exam Cardiovascular Exam: REGULAR RHYTHM, +S1, +S2. absent: JVD, RRR - GI/Abdominal Exam GI & Abdominal Exam: Soft, Normal Bowel Sounds. absent: Tenderness Additional comments: multiple areas of superficial skin infection. some scabbed, minimal discharge, minimal erythema noted around skin lesions - Extremities Exam Extremities Exam: Normal Capillary Refill. absent: Tenderness Additional comments: right UL mild edema compaed to the left side - Back Exam Back Exam: Full ROM, rash noted - Neurological Exam Neurological Exam: Alert, Awake, CN II-XII Intact, Oriented x3 - Psychiatric Exam Psychiatric exam: Normal Affect, Normal Mood - Skin Additional comments: skin wounds on anterior abdominal wall and right shoulder Assessment and Plan - Assessment and Plan (Free Text) Assessment: 58 y/o female with PMH of HTN, HLD, DM, Asthma, COPD, hypothyroidism, anxiety, depression, chronic pancreatitis presents to the ED with progressive SOB x3 days. Admitted for COPD exacerbation Plan: Acute COPD exacerbation: -continue solumedrol 40q8, xopenex oliverio/prn, brovana, pulmicort, singulair -CXR: NAD -EKG:NSR @76bmp, no ST-T wave changes -continue levaquin IV 500 qd -O2 NC prn -patient advised to f/u with pulmonology outpatient for PFT. Last done 2017 Right upper limb edema: -US: negative for DVT -supportive care, elevate arm Superficial anterior abdominal skin wound: -f/u wound cx -wound care -continue levaquin IV 500 qd -topical mupirocin DM2: -BG consistently high in 450-500 range. ISS changed to high. 2 doses of 10u regular insulin given today. Levamir increased to 35u bid. 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 Scheduled for thyroid US in 2 weeks PPX: -DVT: lovenx, SCD -GI: protonix -diabetic diet -continue PT Case reviewed and plan discussed with attending Dr Ruiz Petit, DO <Jay Melchor - Last Filed: 02/23/19 13:51> Objective - Vital Signs/Intake and Output Vital Signs (last 24 hours): Temp Pulse Resp BP Pulse Ox 97.9 F 75 18 131/78 95 02/23/19 06:00 02/23/19 11:01 02/23/19 06:00 02/23/19 11:01 02/23/19 06:00 Intake and Output: 02/23/19 02/23/19 06:59 18:59 Intake Total 1540 Balance 1540 - Medications Medications: Current Medications Arformoterol Tartrate (Brovana) 15 mcg IH [id number] [facility] Last Admin: 02/23/19 07:56 Dose: 15 mcg Atenolol (Tenormin) 25 mg PO DAILY [facility] Last Admin: 02/23/19 11:01 Dose: 25 mg Atorvastatin Calcium (Lipitor) 40 mg PO DAILY [facility] Last Admin: 02/23/19 10:57 Dose: 40 mg Benzocaine/Menthol (Cepacol Sore Throat) 1 yo MT Q2H PRN PRN Reason: Sore Throat Budesonide (Pulmicort Respules) 0.25 mg IH [id number] [facility] Last Admin: 02/23/19 07:56 Dose: 0.25 mg Dextrose (Dextrose 50% Inj) 0 ml IV STAT PRN; Protocol PRN Reason: Hypoglycemia Protocol Enoxaparin Sodium (Lovenox) 40 mg SC DAILY [facility]; Protocol Ergocalciferol (Drisdol 50,000 Intl Units Cap) 1 cap PO WED [facility] Last Admin: 02/22/19 10:03 Dose: 1 cap Furosemide (Lasix) 40 mg PO DAILY [facility] Guaifenesin/Codeine Phosphate (Robitussin W/Codeine) 5 ml PO BID [facility] Guaifenesin/Dextromethorphan (Robitussin Dm) 5 ml PO Q4H PRN PRN Reason: Cough Last Admin: 02/23/19 08:29 Dose: 5 ml Hydrochlorothiazide (Microzide) 12.5 mg PO DAILY [facility] Last Admin: 02/23/19 10:57 Dose: 12.5 mg Insulin Detemir (Levemir) 40 unit SC Q12 [facility] Insulin Human Lispro (Humalog) 8 units SC AC [facility] Last Admin: 02/23/19 11:59 Dose: 8 unit Insulin Human Regular (Humulin R High) 0 units SC ACHS [facility]; Protocol Last Admin: 02/23/19 11:58 Dose: 12 units Levalbuterol HCl (Xopenex) 1.25 mg IH [id number] [facility] Last Admin: 02/23/19 13:32 Dose: 1.25 mg Levalbuterol HCl (Xopenex) 0.63 mg IH [id number] PRN PRN Reason: Shortness of Breath Last Admin: 02/22/19 13:17 Dose: 0.63 mg Levofloxacin (Levaquin) 500 mg PO DAILY [facility] Last Admin: 02/23/19 10:57 Dose: 500 mg Lidocaine (Lidoderm) 1 ea TD DAILY [facility] Last Admin: 02/23/19 10:56 Dose: 1 ea Methylprednisolone (Solu-Medrol) 40 mg IVP Q12 [facility] Montelukast Sodium (Singulair) 10 mg PO HS [facility] Last Admin: 02/22/19 21:57 Dose: 10 mg Mupirocin (Bactroban Ointment) 0 gm TOP BID [facility] Last Admin: 02/22/19 18:53 Dose: 1 appful Lipase/Protease/Amylase [Creon Dr 12 ,000 Units Capsule] 12,000 Mg (Home Med) 12,000 mg PO TID [facility] Last Admin: 02/22/19 18:54 Dose: Not Given Ondansetron HCl (Zofran Inj) 4 mg IVP Q4H PRN PRN Reason: Nausea/Vomiting Last Admin: 02/22/19 13:05 Dose: 4 mg Pantoprazole Sodium (Protonix Ec Tab) 40 mg PO 0600 [facility] Last Admin: 02/23/19 05:09 Dose: 40 mg Potassium Chloride (K-Dur 20 Meq Er Tab) 20 meq PO DAILY [facility] Last Admin: 02/23/19 10:57 Dose: 20 meq - Labs Labs: 02/23/19 06:00 02/23/19 06:00 Attending/Attestation - Attestation I have personally seen and examined this patient.: Yes I have fully participated in the care of the patient.: Yes I have reviewed all pertinent clinical information, including history, physical exam and plan: Yes Notes (Text): 02/23/19 13:42 Attending note; Patient seen and examined with resident. Patient is alert and awake. Complaining of shortness of breath, cough and wheezing. Denies any fevers, chills. Denies any urinary, bowel symptoms. Patient has multiple excoriated lesions in the abdominal wall and dressing. Tolerating diet well. Currently on oxygen nasal cannula. Patient is a 58-year-old female with PMH of hypertension, hyperlipidemia, diabetes, Asthma, COPD, anxiety, depression, chronic pancreatitis presents to the ED with progressive shortness of breath. 1. Acute COPD exacerbation; patient is currently on oxygen nasal cannula. Tachycardia is improving. Continue Xopenex, IV Solu-Medrol. Continue Brovana, Pulmicort and Singulair. Patient follows up with Dr. Crum triple air valve tester as outpatient. 2. Diabetes; continue Levemir. Dosage increased secondary to elevated blood sugar mostly due to steroids. Hemoglobin A1c ordered. Dietary education given. 3. Hypertension; continue Tenormin, hydrochlorthiazide. 4. Chronic leg edema. Continue Lasix. Upper extremity Dopplers negative for DVT. 5. GI prophylaxis with Protonix. 6. DVT prophylaxis with subcu Lovenox. 7. Abdominal wall wound; secondary to insulin injection. Wound cultures pending. Continue levofloxacin. Wound care evaluation appreciated. 8. Chronic pancreatitis; continue pancreatic enzyme supplementation. Patient currently does not have any diarrhea. 9. History of hypothyroidism; currently T4 is normal. TSH is low. Needs follow-up as outpatient. Currently not on supplementation. Out of bed to chair as tolerated. Upon discharge the patient will follow-up with PMD Dr. Hernandez. Patient needs close outpatient pulmonary follow-up for outpatient PFT.
[2019-02-22] MEDS: Insulin Reg-HIGH-Coverage SC SCH ×2 (18:54→21:57)
[2019-02-22] MEDS: Levalbuterol 1.25 MG/3 ML Inhal Soln UD IH SCH (19:38)
[2019-02-22] MEDS: Insulin Detemir 100 units/ml Vial (Levemir) SC SCH (21:57)
[2019-02-22] MEDS ORDERED: Insulin Lispro 1 UNITS/0.01 ML SC ONE (22:04)
[2019-02-23] MEDS: Levalbuterol 1.25 MG/3 ML Inhal Soln UD IH SCH ×4 (01:08→19:46)
[2019-02-23] MEDS: MethylPREDNISolone 40 mg Vial IVP SCH ×3 (05:09→22:00)
[2019-02-23] MEDS: Pantoprazole 40 mg EC Tab PO SCH (05:09)
[2019-02-23 06:24] LABS: HEMOGLOBIN 12.7 g/dL (12.0-16.0); MEAN CELL VOLUME 82.4 fl (80.0-105.0); MEAN CORPUSCULAR HEMOGLOBIN 26.6 pg (25.0-35.0); MEAN CORPUSCULAR HGB CONC 32.3 g/dl (31.0-37.0); MEAN PLATELET VOLUME 11.2 fl (7.0-11.0); RBC 4.77 10^6/uL (3.5-6.1); RED CELL DISTRIBUTION WIDTH 13.1 % (11.5-14.5); WHITE BLOOD COUNT 11.7 10^3/uL (4.5-11.0)
[2019-02-23 07:33] LABS: ALB/GLOB RATIO 1.3 (1.1-1.8); ALBUMIN 3.9 g/dL (3.0-4.8); ALT/SGPT 18 U/L (7-56); AST/SGOT 15 U/L (14-36); BLOOD UREA NITROGEN 20 mg/dL (7-21); CALCIUM 9.7 mg/dL (8.4-10.5); GFR NON-AFRICAN AMERICAN > 60
[2019-02-23] MEDS: Budesonide 0.25 mg/2 ml Inhal Susp UD IH SCH ×2 (07:56→19:46)
[2019-02-23] MEDS: Arformoterol 15 mcg/2 ml Inh Sol IH SCH ×2 (07:56→19:46)
[2019-02-23] MEDS: guaiFENesin DM 100 mg-10 mg/5 ml UD PO PRN (08:29)
[2019-02-23] MEDS: Insulin Lispro 1 UNITS/0.01 ML SC SCH ×3 (08:29→18:13)
[2019-02-23] MEDS: Insulin Reg-HIGH-Coverage SC SCH ×4 (08:30→21:33)
[2019-02-23] MEDS: Enoxaparin 30 mg Syringe SC SCH (10:00)
[2019-02-23] MEDS: Insulin Detemir 100 units/ml Vial (Levemir) SC SCH ×2 (10:00→21:22)
[2019-02-23] MEDS: LIPASE PO SCH ×3 (10:05→18:05)
[2019-02-23] MEDS: PROTEASE PO SCH ×3 (10:05→18:05)
[2019-02-23] MEDS: AMYLASE PO SCH ×3 (10:05→18:05)
[2019-02-23] MEDS ORDERED: Benzocaine/Menthol (Cepacol) Lozenge MT PRN (10:19)
[2019-02-23] MEDS: Mupirocin 2% Ointment 15 GM TUBE TOP SCH ×2 (10:35→18:35)
[2019-02-23] MEDS: Lidocaine 5% Patch TD SCH (10:56)
[2019-02-23] MEDS: Potassium Chloride 20 mEq ER Tab PO SCH (10:57)
[2019-02-23] MEDS: levoFLOXacin 500 MG TAB PO SCH (10:57)
--- NOTE | 2019-02-23 14:01 | CP.PCM.PN ---
<Gimlar Petit - Last Filed: 02/23/19 14:32> Subjective - Date & Time of Evaluation Date of Evaluation: 02/23/19 Time of Evaluation: 06:45 - Subjective Subjective: Gilmar Petit DO PGY1. Hospitalist Progress Note for Dr Melchor Patient seen and examined at bedside. She reports SOB getting better but still has cough. She denies CP, palpitations. No acute events overnight. Objective - Vital Signs/Intake and Output Vital Signs (last 24 hours): Temp Pulse Resp BP Pulse Ox 97.9 F 75 18 131/78 95 02/23/19 06:00 02/23/19 11:01 02/23/19 06:00 02/23/19 11:01 02/23/19 06:00 Intake and Output: 02/23/19 02/23/19 06:59 18:59 Intake Total 1540 Balance 1540 - Medications Medications: Current Medications Arformoterol Tartrate (Brovana) 15 mcg IH [id number] [facility] Last Admin: 02/23/19 07:56 Dose: 15 mcg Atenolol (Tenormin) 25 mg PO DAILY [facility] Last Admin: 02/23/19 11:01 Dose: 25 mg Atorvastatin Calcium (Lipitor) 40 mg PO DAILY [facility] Last Admin: 02/23/19 10:57 Dose: 40 mg Benzocaine/Menthol (Cepacol Sore Throat) 1 yo MT Q2H PRN PRN Reason: Sore Throat Budesonide (Pulmicort Respules) 0.25 mg IH [id number] [facility] Last Admin: 02/23/19 07:56 Dose: 0.25 mg Dextrose (Dextrose 50% Inj) 0 ml IV STAT PRN; Protocol PRN Reason: Hypoglycemia Protocol Enoxaparin Sodium (Lovenox) 40 mg SC DAILY [facility]; Protocol Ergocalciferol (Drisdol 50,000 Intl Units Cap) 1 cap PO WED [facility] Last Admin: 02/22/19 10:03 Dose: 1 cap Furosemide (Lasix) 40 mg PO DAILY [facility] Guaifenesin/Codeine Phosphate (Robitussin W/Codeine) 5 ml PO BID [facility] Guaifenesin/Dextromethorphan (Robitussin Dm) 5 ml PO Q4H PRN PRN Reason: Cough Last Admin: 02/23/19 08:29 Dose: 5 ml Hydrochlorothiazide (Microzide) 12.5 mg PO DAILY [facility] Last Admin: 02/23/19 10:57 Dose: 12.5 mg Insulin Detemir (Levemir) 40 unit SC Q12 [facility] Insulin Human Lispro (Humalog) 8 units SC AC [facility] Last Admin: 02/23/19 11:59 Dose: 8 unit Insulin Human Regular (Humulin R High) 0 units SC ACHS [facility]; Protocol Last Admin: 02/23/19 11:58 Dose: 12 units Levalbuterol HCl (Xopenex) 1.25 mg IH [id number] [facility] Last Admin: 02/23/19 13:32 Dose: 1.25 mg Levalbuterol HCl (Xopenex) 0.63 mg IH [id number] PRN PRN Reason: Shortness of Breath Last Admin: 02/22/19 13:17 Dose: 0.63 mg Levofloxacin (Levaquin) 500 mg PO DAILY [facility] Last Admin: 02/23/19 10:57 Dose: 500 mg Lidocaine (Lidoderm) 1 ea TD DAILY [facility] Last Admin: 02/23/19 10:56 Dose: 1 ea Methylprednisolone (Solu-Medrol) 40 mg IVP Q12 [facility] Montelukast Sodium (Singulair) 10 mg PO HS [facility] Last Admin: 02/22/19 21:57 Dose: 10 mg Mupirocin (Bactroban Ointment) 0 gm TOP BID [facility] Last Admin: 02/22/19 18:53 Dose: 1 appful Lipase/Protease/Amylase [Creon Dr 12 ,000 Units Capsule] 12,000 Mg (Home Med) 12,000 mg PO TID [facility] Last Admin: 02/22/19 18:54 Dose: Not Given Ondansetron HCl (Zofran Inj) 4 mg IVP Q4H PRN PRN Reason: Nausea/Vomiting Last Admin: 02/22/19 13:05 Dose: 4 mg Pantoprazole Sodium (Protonix Ec Tab) 40 mg PO 0600 [facility] Last Admin: 02/23/19 05:09 Dose: 40 mg Potassium Chloride (K-Dur 20 Meq Er Tab) 20 meq PO DAILY [facility] Last Admin: 02/23/19 10:57 Dose: 20 meq - Labs Labs: 02/23/19 06:00 02/23/19 06:00 - Constitutional Appears: Well, Non-toxic, No Acute Distress - Head Exam Head Exam: ATRAUMATIC, NORMAL INSPECTION, NORMOCEPHALIC - Eye Exam Eye Exam: EOMI, Normal appearance, PERRL Pupil Exam: NORMAL ACCOMODATION, PERRL - ENT Exam ENT Exam: Mucous Membranes Moist - Neck Exam Neck Exam: Normal Inspection - Respiratory Exam Respiratory Exam: Decreased Breath Sounds, Prolonged Expiratory Phase, Wheezes (b/l base. improving compared to prior exam) - Cardiovascular Exam Cardiovascular Exam: REGULAR RHYTHM, +S1, +S2. absent: JVD, RRR, Murmur - GI/Abdominal Exam GI & Abdominal Exam: Soft, Normal Bowel Sounds. absent: Tenderness Additional comments: superficial skin wound on anterior abd wall - Extremities Exam Extremities Exam: Normal Capillary Refill. absent: Pedal Edema - Back Exam Back Exam: rash noted - Neurological Exam Neurological Exam: Alert, Awake, CN II-XII Intact, Normal Gait, Oriented x3 - Psychiatric Exam Psychiatric exam: Normal Affect, Normal Mood - Skin Skin Exam: Dry, Intact, Normal Color, Warm Additional comments: skin wounds on anterior abdominal wall and right shoulder Assessment and Plan - Assessment and Plan (Free Text) Assessment: 58 y/o female with PMH of HTN, HLD, DM, Asthma, COPD, hypothyroidism, anxiety, depression, chronic pancreatitis presents to the ED with progressive SOB x3 days. Admitted for COPD exacerbation Plan: Acute COPD exacerbation: -solumedrol tappered down to 40q12 -continue xopenex oliverio/prn, brovana, pulmicort, singulair, O2 NC prn -continue levaquin IV 500 qd -CXR: NAD -EKG:NSR @76bmp, no ST-T wave changes -patient advised to f/u with pulmonology outpatient for PFT. Last done 2017 Right upper limb edema: -US: negative for DVT -supportive care, elevate arm -lidoderm patch for right shoulder pain Superficial anterior abdominal skin wound: -wound cx: gram positive cocci -continue levaquin IV 500 qd -topical mupirocin -wound care DM2: -BG was consistently high in 450-500 range yesterday in the setting of steroid use. Today in 280-350 range -levamir increased to 40u bid -lispro 8u AC -ISS switched to high scale -accucheck -A1C 12.7 HTN: -lasix increased from 20 to 40mg qd -continue home med atenolol, HCTZ -continue home med KCl 20 mg qd HLD: -continue home med simvastatin 40 -lipid profile: CHOL 225, LDL 153 Chronic pancreatitis: -continue home pancreatic enzymes -serum lipase 28 Vitamin D deficiency: -continue home med ergocalciferol q7d - low vit D level at 20 Hypothyroidism: -h/o thyroid nodules -TSH low at 0.28, normal free T4 -patient was on thyroxine before but d/c -patient is following up with vp sales as o/p. Scheduled for thyroid US in 2 weeks PPX: -DVT: lovenx, SCD -GI: protonix -diabetic diet -continue PT Case reviewed and plan discussed with attending Dr Ruiz Petit, DO <Jay Melchor - Last Filed: 02/24/19 13:26> Objective - Vital Signs/Intake and Output Vital Signs (last 24 hours): Temp Pulse Resp BP Pulse Ox 97.5 F L 71 18 142/77 97 02/24/19 06:00 02/24/19 06:00 02/24/19 06:00 02/24/19 09:56 02/24/19 06:00 Intake and Output: 02/24/19 02/24/19 06:59 18:59 Intake Total 2520 Balance 2520 - Medications Medications: Current Medications Albuterol/Ipratropium (Duoneb 3 Mg/0.5 Mg (3 Ml) Ud) 3 ml IH [id number] [facility] Albuterol/Ipratropium (Duoneb 3 Mg/0.5 Mg (3 Ml) Ud) 3 ml IH Q2 PRN PRN Reason: Shortness of Breath Atenolol (Tenormin) 25 mg PO DAILY [facility] Last Admin: 02/24/19 10:04 Dose: 25 mg Atorvastatin Calcium (Lipitor) 40 mg PO DAILY [facility] Last Admin: 02/24/19 10:02 Dose: 40 mg Benzocaine/Menthol (Cepacol Sore Throat) 1 yo MT Q2H PRN PRN Reason: Sore Throat Budesonide (Pulmicort Respules) 0.5 mg IH [id number] [facility] Dextrose (Dextrose 50% Inj) 0 ml IV STAT PRN; Protocol PRN Reason: Hypoglycemia Protocol Enoxaparin Sodium (Lovenox) 40 mg SC DAILY [facility]; Protocol Last Admin: 02/24/19 10:02 Dose: 40 mg Ergocalciferol (Drisdol 50,000 Intl Units Cap) 1 cap PO WED [facility] Last Admin: 02/22/19 10:03 Dose: 1 cap Furosemide (Lasix) 40 mg PO DAILY [facility] Last Admin: 02/24/19 09:56 Dose: 40 mg Guaifenesin/Codeine Phosphate (Robitussin W/Codeine) 5 ml PO BID [facility] Last Admin: 02/24/19 10:03 Dose: 5 ml Guaifenesin/Dextromethorphan (Robitussin Dm) 5 ml PO Q4H PRN PRN Reason: Cough Last Admin: 02/23/19 08:29 Dose: 5 ml Hydrochlorothiazide (Microzide) 12.5 mg PO DAILY [facility] Last Admin: 02/24/19 10:02 Dose: 12.5 mg Vancomycin HCl (Vancomycin 1gm) 1 gm in 250 mls @ 167 mls/hr IVPB Q12H [facility]; Protocol Last Admin: 02/24/19 12:20 Dose: 167 mls/hr Insulin Detemir (Levemir) 40 unit SC Q12 [facility] Last Admin: 02/24/19 10:01 Dose: 40 unit Insulin Human Lispro (Humalog) 8 units SC AC [facility] Last Admin: 02/24/19 12:20 Dose: 2 unit Insulin Human Regular (Humulin R High) 0 units SC ACHS [facility]; Protocol Last Admin: 02/24/19 12:19 Dose: 7 units Lidocaine (Lidoderm) 1 ea TD DAILY [facility] Last Admin: 02/24/19 10:02 Dose: 1 ea Methylprednisolone (Solu-Medrol) 40 mg IVP Q8 [facility] Montelukast Sodium (Singulair) 10 mg PO HS [facility] Last Admin: 02/23/19 21:20 Dose: 10 mg Mupirocin (Bactroban Ointment) 0 gm TOP BID [facility] Last Admin: 02/24/19 09:55 Dose: 1 appful Lipase/Protease/Amylase [Creon Dr 12 ,000 Units Capsule] 12,000 Mg (Home Med) 12,000 mg PO TID [facility] Last Admin: 02/24/19 10:02 Dose: Not Given Nystatin/Triamcinolone Acetonide (Nystatin/Triamcinolone Cream) 0 ea TOP BID [facility] Last Admin: 02/24/19 12:20 Dose: 1 applic Ondansetron HCl (Zofran Inj) 4 mg IVP Q4H PRN PRN Reason: Nausea/Vomiting Last Admin: 02/23/19 18:19 Dose: 4 mg Pantoprazole Sodium (Protonix Ec Tab) 40 mg PO 0600 [facility] Last Admin: 02/24/19 05:35 Dose: 40 mg Potassium Chloride (K-Dur 20 Meq Er Tab) 20 meq PO DAILY [facility] Last Admin: 02/24/19 09:55 Dose: 20 meq - Labs Labs: 02/23/19 06:00 02/23/19 06:00 Attending/Attestation - Attestation I have personally seen and examined this patient.: Yes I have fully participated in the care of the patient.: Yes I have reviewed all pertinent clinical information, including history, physical exam and plan: Yes Notes (Text): 02/24/19 13:25 Attending note; Patient seen and examined with resident. Patient is alert and awake. Still complaining of shortness of breath, cough and wheezing. On oxygen nasal cannula. Denies any fevers, chills. Denies any urinary, bowel symptoms. Patient has multiple excoriated lesions in the abdominal wall and dressing. Patient is a 58-year-old female with PMH of hypertension, hyperlipidemia, diabetes, Asthma, COPD, anxiety, depression, chronic pancreatitis presents to the ED with progressive shortness of breath. 1. Acute COPD exacerbation; patient is currently on oxygen nasal cannula. Tachycardia is improving. Continue Xopenex, IV Solu-Medrol. Continue Brovana, Pulmicort and Singulair. Still with significant bronchospasm. Continue Xopenex treatment and IV steroids. 2. Diabetes; continue Levemir. Dosage increased secondary to elevated blood sugar mostly due to steroids. Hemoglobin A1c is 12.7. Dietary education given. 3. Hypertension; continue Tenormin, hydrochlorthiazide. 4. Chronic leg edema. Continue Lasix. Upper extremity Dopplers negative for DVT. 5. GI prophylaxis with Protonix. 6. DVT prophylaxis with subcu Lovenox. 7. Abdominal wall wound; secondary to insulin injection. Wound cultures pe nding. Continue levofloxacin. Wound care evaluation appreciated. 8. Chronic pancreatitis; continue pancreatic enzyme supplementation. Patient currently does not have any diarrhea. 9. History of hypothyroidism; currently T4 is normal. TSH is low. Needs follow-up as outpatient. Currently not on supplementation. Out of bed to chair as tolerated. Upon discharge the patient will follow-up with PMD Dr. Hernandez. Patient needs close outpatient pulmonary follow-up for outpatient PFT.
[2019-02-23] MEDS: guaiFENesin-Codeine 100-10mg/5ml Syrup (5 ml) UD PO SCH (18:12)
[2019-02-23] MEDS: Levalbuterol 0.63 MG/3 ML Inhal Soln UD IH PRN (18:35)
--- NOTE | 2019-02-23 19:22 | CP.PCM.PN ---
<Juan Ozuna - Last Filed: 02/23/19 19:24> Subjective - Date & Time of Evaluation Date of Evaluation: 02/23/19 Time of Evaluation: 19:20 - Subjective Subjective: S: At bedside, patient was in significant respiratory distress. Patient reported dizziness, shortness of breath, chest pressure, left shoulder pain and nausea that started when she noticed the weather changing. O: Cardio: Tachycardia, regular rhythm Lungs: harsh breath sounds, respiratory distress with increased respirations, sufficient air is being brought into and out of lungs Abdomen: NT, ND, BS+ A and P: 58 year old female with past medical history of HTN, HLD, DM, Asthma, COPD, hypothyroidism, anxiety, chronic pancreatitis, depression presented with asthma/COPD exacerbation Asthma exacerbation -Venti-mask -Will give pulmicort, solumedrol, 2 xopenex treatments Chest pressure -EKG -Tropx1 Objective - Vital Signs/Intake and Output Vital Signs (last 24 hours): Temp Pulse Resp BP Pulse Ox 97.9 F 66 20 147/77 98 02/23/19 16:24 02/23/19 16:24 02/23/19 16:24 02/23/19 16:24 02/23/19 16:24 - Medications Medications: Current Medications Arformoterol Tartrate (Brovana) 15 mcg IH [id number] [facility] Last Admin: 02/23/19 07:56 Dose: 15 mcg Atenolol (Tenormin) 25 mg PO DAILY [facility] Last Admin: 02/23/19 11:01 Dose: 25 mg Atorvastatin Calcium (Lipitor) 40 mg PO DAILY [facility] Last Admin: 02/23/19 10:57 Dose: 40 mg Benzocaine/Menthol (Cepacol Sore Throat) 1 yo MT Q2H PRN PRN Reason: Sore Throat Budesonide (Pulmicort Respules) 0.25 mg IH [id number] [facility] Last Admin: 02/23/19 07:56 Dose: 0.25 mg Dextrose (Dextrose 50% Inj) 0 ml IV STAT PRN; Protocol PRN Reason: Hypoglycemia Protocol Enoxaparin Sodium (Lovenox) 40 mg SC DAILY [facility]; Protocol Ergocalciferol (Drisdol 50,000 Intl Units Cap) 1 cap PO WED [facility] Last Admin: 02/22/19 10:03 Dose: 1 cap Furosemide (Lasix) 40 mg PO DAILY [facility] Guaifenesin/Codeine Phosphate (Robitussin W/Codeine) 5 ml PO BID [facility] Last Admin: 02/23/19 18:12 Dose: 5 ml Guaifenesin/Dextromethorphan (Robitussin Dm) 5 ml PO Q4H PRN PRN Reason: Cough Last Admin: 02/23/19 08:29 Dose: 5 ml Hydrochlorothiazide (Microzide) 12.5 mg PO DAILY [facility] Last Admin: 02/23/19 10:57 Dose: 12.5 mg Insulin Detemir (Levemir) 40 unit SC Q12 [facility] Insulin Human Lispro (Humalog) 8 units SC AC [facility] Last Admin: 02/23/19 18:13 Dose: 8 unit Insulin Human Regular (Humulin R High) 0 units SC ACHS [facility]; Protocol Last Admin: 02/23/19 18:13 Dose: 7 units Levalbuterol HCl (Xopenex) 1.25 mg IH [id number] [facility] Last Admin: 02/23/19 13:32 Dose: 1.25 mg Levalbuterol HCl (Xopenex) 0.63 mg IH [id number] PRN PRN Reason: Shortness of Breath Last Admin: 02/23/19 18:35 Dose: 0.63 mg Levofloxacin (Levaquin) 500 mg PO DAILY [facility] Last Admin: 02/23/19 10:57 Dose: 500 mg Lidocaine (Lidoderm) 1 ea TD DAILY [facility] Last Admin: 02/23/19 10:56 Dose: 1 ea Methylprednisolone (Solu-Medrol) 40 mg IVP Q12 [facility] Montelukast Sodium (Singulair) 10 mg PO HS [facility] Last Admin: 02/22/19 21:57 Dose: 10 mg Mupirocin (Bactroban Ointment) 0 gm TOP BID [facility] Last Admin: 02/22/19 18:53 Dose: 1 appful Lipase/Protease/Amylase [Creon Dr 12 ,000 Units Capsule] 12,000 Mg (Home Med) 12,000 mg PO TID [facility] Last Admin: 02/23/19 18:05 Dose: Not Given Ondansetron HCl (Zofran Inj) 4 mg IVP Q4H PRN PRN Reason: Nausea/Vomiting Last Admin: 02/23/19 18:19 Dose: 4 mg Pantoprazole Sodium (Protonix Ec Tab) 40 mg PO 0600 [facility] Last Admin: 02/23/19 05:09 Dose: 40 mg Potassium Chloride (K-Dur 20 Meq Er Tab) 20 meq PO DAILY [facility] Last Admin: 02/23/19 10:57 Dose: 20 meq - Labs Labs: 02/23/19 06:00 02/23/19 06:00 <Andrés Sifuentes - Last Filed: 02/23/19 19:33> Objective - Vital Signs/Intake and Output Vital Signs (last 24 hours): Temp Pulse Resp BP Pulse Ox 97.9 F 66 20 147/77 98 02/23/19 16:24 02/23/19 16:24 02/23/19 16:24 02/23/19 16:24 02/23/19 16:24 - Medications Medications: Current Medications Arformoterol Tartrate (Brovana) 15 mcg IH [id number] [facility] Last Admin: 02/23/19 07:56 Dose: 15 mcg Atenolol (Tenormin) 25 mg PO DAILY [facility] Last Admin: 02/23/19 11:01 Dose: 25 mg Atorvastatin Calcium (Lipitor) 40 mg PO DAILY [facility] Last Admin: 02/23/19 10:57 Dose: 40 mg Benzocaine/Menthol (Cepacol Sore Throat) 1 yo MT Q2H PRN PRN Reason: Sore Throat Budesonide (Pulmicort Respules) 0.25 mg IH [id number] [facility] Last Admin: 02/23/19 07:56 Dose: 0.25 mg Dextrose (Dextrose 50% Inj) 0 ml IV STAT PRN; Protocol PRN Reason: Hypoglycemia Protocol Enoxaparin Sodium (Lovenox) 40 mg SC DAILY [facility]; Protocol Ergocalciferol (Drisdol 50,000 Intl Units Cap) 1 cap PO WED [facility] Last Admin: 02/22/19 10:03 Dose: 1 cap Furosemide (Lasix) 40 mg PO DAILY [facility] Guaifenesin/Codeine Phosphate (Robitussin W/Codeine) 5 ml PO BID [facility] Last Admin: 02/23/19 18:12 Dose: 5 ml Guaifenesin/Dextromethorphan (Robitussin Dm) 5 ml PO Q4H PRN PRN Reason: Cough Last Admin: 05/30/19 08:29 Dose: 5 ml Hydrochlorothiazide (Microzide) 12.5 mg PO DAILY [facility] Last Admin: 02/23/19 10:57 Dose: 12.5 mg Insulin Detemir (Levemir) 40 unit SC Q12 [facility] Insulin Human Lispro (Humalog) 8 units SC AC [facility] Last Admin: 02/23/19 18:13 Dose: 8 unit Insulin Human Regular (Humulin R High) 0 units SC ACHS [facility]; Protocol Last Admin: 02/23/19 18:13 Dose: 7 units Levalbuterol HCl (Xopenex) 1.25 mg IH [id number] [facility] Last Admin: 02/23/19 13:32 Dose: 1.25 mg Levalbuterol HCl (Xopenex) 0.63 mg IH [id number] PRN PRN Reason: Shortness of Breath Last Admin: 02/23/19 18:35 Dose: 0.63 mg Levofloxacin (Levaquin) 500 mg PO DAILY [facility] Last Admin: 02/23/19 10:57 Dose: 500 mg Lidocaine (Lidoderm) 1 ea TD DAILY [facility] Last Admin: 02/23/19 10:56 Dose: 1 ea Methylprednisolone (Solu-Medrol) 40 mg IVP Q12 [facility] Montelukast Sodium (Singulair) 10 mg PO HS [facility] Last Admin: 02/22/19 21:57 Dose: 10 mg Mupirocin (Bactroban Ointment) 0 gm TOP BID [facility] Last Admin: 02/22/19 18:53 Dose: 1 appful Lipase/Protease/Amylase [Creon Dr 12 ,000 Units Capsule] 12,000 Mg (Home Med) 12,000 mg PO TID [facility] Last Admin: 02/23/19 18:05 Dose: Not Given Ondansetron HCl (Zofran Inj) 4 mg IVP Q4H PRN PRN Reason: Nausea/Vomiting Last Admin: 02/23/19 18:19 Dose: 4 mg Pantoprazole Sodium (Protonix Ec Tab) 40 mg PO 0600 [facility] Last Admin: 02/23/19 05:09 Dose: 40 mg Potassium Chloride (K-Dur 20 Meq Er Tab) 20 meq PO DAILY [facility] Last Admin: 02/23/19 10:57 Dose: 20 meq - Labs Labs: 02/23/19 06:00 02/23/19 06:00 Attending/Attestation - Attestation I have personally seen and examined this patient.: No I have fully participated in the care of the patient.: No I have reviewed all pertinent clinical information, including history, physical exam and plan: No
[2019-02-23] MEDS ORDERED: Levalbuterol 1.25 MG/3 ML Inhal Soln UD IH ONE (19:30)
[2019-02-24] MEDS ORDERED: Insulin Lispro 1 UNITS/0.01 ML SC ONE (02:22)
[2019-02-24] MEDS: Levalbuterol 1.25 MG/3 ML Inhal Soln UD IH SCH ×3 (02:44→09:11)
[2019-02-24] MEDS: Pantoprazole 40 mg EC Tab PO SCH (05:35)
[2019-02-24] MEDS: Insulin Lispro 1 UNITS/0.01 ML SC SCH ×3 (07:57→17:45)
[2019-02-24] MEDS: Insulin Reg-HIGH-Coverage SC SCH ×4 (07:58→21:47)
[2019-02-24] MEDS: Budesonide 0.25 mg/2 ml Inhal Susp UD IH SCH (09:10)
[2019-02-24] MEDS: Arformoterol 15 mcg/2 ml Inh Sol IH SCH (09:10)
[2019-02-24] MEDS: Potassium Chloride 20 mEq ER Tab PO SCH (09:55)
[2019-02-24] MEDS: Mupirocin 2% Ointment 15 GM TUBE TOP SCH ×2 (09:55→17:44)
[2019-02-24] MEDS: Insulin Detemir 100 units/ml Vial (Levemir) SC SCH ×2 (10:01→21:47)
[2019-02-24] MEDS: levoFLOXacin 500 MG TAB PO SCH (10:01)
[2019-02-24] MEDS: PROTEASE PO SCH ×3 (10:02→17:46)
[2019-02-24] MEDS: LIPASE PO SCH ×3 (10:02→17:46)
[2019-02-24] MEDS: AMYLASE PO SCH ×3 (10:02→17:46)
[2019-02-24] MEDS: Lidocaine 5% Patch TD SCH (10:02)
[2019-02-24] MEDS: Enoxaparin 40 mg Syringe SC SCH (10:02)
[2019-02-24] MEDS: guaiFENesin-Codeine 100-10mg/5ml Syrup (5 ml) UD PO SCH ×2 (10:03→17:46)
[2019-02-24] MEDS: MethylPREDNISolone 40 mg Vial IVP SCH ×3 (10:03→21:47)
[2019-02-24] MEDS: Vancomycin 1gm in NS 250ml 1 GM/250 ML BAG IVPB SCH (12:20)
[2019-02-24] MEDS: Nystatin-Triamcinolone Cream(30 gm) TOP SCH ×2 (12:20→17:46)
--- NOTE | 2019-02-24 12:30 | CP.PCM.PN ---
<Gilmar Petit - Last Filed: 02/24/19 12:23> Subjective - Date & Time of Evaluation Date of Evaluation: 02/24/19 Time of Evaluation: 07:10 - Subjective Subjective: Gilmar Petit DO PGY1. Hospitalist Progress Note for Dr Melchor Patient seen and examined at bedside. She reports some improvement in SOB since yesterday. She experienced respiratory distress last night and received an extra dose of solu-medrol and 2 xopenex treatment. Denies fever, chills, chest pain Objective - Vital Signs/Intake and Output Vital Signs (last 24 hours): Temp Pulse Resp BP Pulse Ox 97.5 F L 71 18 142/77 97 02/24/19 06:00 02/24/19 06:00 02/24/19 06:00 02/24/19 09:56 02/24/19 06:00 Intake and Output: 02/24/19 02/24/19 06:59 18:59 Intake Total 2520 Balance 2520 - Medications Medications: Current Medications Arformoterol Tartrate (Brovana) 15 mcg IH [id number] [facility] Last Admin: 02/24/19 09:10 Dose: 15 mcg Atenolol (Tenormin) 25 mg PO DAILY [facility] Last Admin: 02/24/19 10:04 Dose: 25 mg Atorvastatin Calcium (Lipitor) 40 mg PO DAILY [facility] Last Admin: 02/24/19 10:02 Dose: 40 mg Benzocaine/Menthol (Cepacol Sore Throat) 1 yo MT Q2H PRN PRN Reason: Sore Throat Budesonide (Pulmicort Respules) 0.25 mg IH [id number] [facility] Last Admin: 02/24/19 09:10 Dose: 0.25 mg Dextrose (Dextrose 50% Inj) 0 ml IV STAT PRN; Protocol PRN Reason: Hypoglycemia Protocol Enoxaparin Sodium (Lovenox) 40 mg SC DAILY [facility]; Protocol Last Admin: 02/24/19 10:02 Dose: 40 mg Ergocalciferol (Drisdol 50,000 Intl Units Cap) 1 cap PO WED [facility] Last Admin: 02/22/19 10:03 Dose: 1 cap Furosemide (Lasix) 40 mg PO DAILY [facility] Last Admin: 02/24/19 09:56 Dose: 40 mg Guaifenesin/Codeine Phosphate (Robitussin W/Codeine) 5 ml PO BID [facility] Last Admin: 02/24/19 10:03 Dose: 5 ml Guaifenesin/Dextromethorphan (Robitussin Dm) 5 ml PO Q4H PRN PRN Reason: Cough Last Admin: 02/23/19 08:29 Dose: 5 ml Hydrochlorothiazide (Microzide) 12.5 mg PO DAILY [facility] Last Admin: 02/24/19 10:02 Dose: 12.5 mg Vancomycin HCl (Vancomycin 1gm) 1 gm in 250 mls @ 167 mls/hr IVPB Q12H [facility]; Protocol Last Admin: 02/24/19 12:20 Dose: 167 mls/hr Insulin Detemir (Levemir) 40 unit SC Q12 [facility] Last Admin: 02/24/19 10:01 Dose: 40 unit Insulin Human Lispro (Humalog) 8 units SC AC [facility] Last Admin: 02/24/19 12:20 Dose: 2 unit Insulin Human Regular (Humulin R High) 0 units SC ACHS [facility]; Protocol Last Admin: 02/24/19 12:19 Dose: 7 units Levalbuterol HCl (Xopenex) 1.25 mg IH [id number] [facility] Last Admin: 02/24/19 09:11 Dose: 1.25 mg Levalbuterol HCl (Xopenex) 0.63 mg IH [id number] PRN PRN Reason: Shortness of Breath Last Admin: 02/23/19 18:35 Dose: 0.63 mg Lidocaine (Lidoderm) 1 ea TD DAILY [facility] Last Admin: 02/24/19 10:02 Dose: 1 ea Methylprednisolone (Solu-Medrol) 40 mg IVP Q8 [facility] Montelukast Sodium (Singulair) 10 mg PO HS [facility] Last Admin: 02/23/19 21:20 Dose: 10 mg Mupirocin (Bactroban Ointment) 0 gm TOP BID [facility] Last Admin: 02/24/19 09:55 Dose: 1 appful Lipase/Protease/Amylase [Creon Dr 12 ,000 Units Capsule] 12,000 Mg (Home Med) 12,000 mg PO TID [facility] Last Admin: 02/24/19 10:02 Dose: Not Given Nystatin/Triamcinolone Acetonide (Nystatin/Triamcinolone Cream) 0 ea TOP BID [facility] Last Admin: 02/24/19 12:20 Dose: 1 applic Ondansetron HCl (Zofran Inj) 4 mg IVP Q4H PRN PRN Reason: Nausea/Vomiting Last Admin: 02/23/19 18:19 Dose: 4 mg Pantoprazole Sodium (Protonix Ec Tab) 40 mg PO 0600 [facility] Last Admin: 02/24/19 05:35 Dose: 40 mg Potassium Chloride (K-Dur 20 Meq Er Tab) 20 meq PO DAILY [facility] Last Admin: 02/24/19 09:55 Dose: 20 meq - Labs Labs: 02/23/19 06:00 02/23/19 06:00 - Additional Findings Additional findings: - Constitutional Appears: Well, Non-toxic, No Acute Distress - Head Exam Head Exam: ATRAUMATIC, NORMAL INSPECTION, NORMOCEPHALIC - Eye Exam Eye Exam: EOMI, Normal appearance, PERRL Pupil Exam: NORMAL ACCOMODATION, PERRL - ENT Exam ENT Exam: Mucous Membranes Moist - Neck Exam Neck Exam: Normal Inspection - Respiratory Exam Respiratory Exam: Decreased Breath Sounds, Prolonged Expiratory Phase, Wheezes (b/l base. no change compared to yesterday) - Cardiovascular Exam Cardiovascular Exam: REGULAR RHYTHM, +S1, +S2. absent: JVD, RRR, Murmur - GI/Abdominal Exam GI & Abdominal Exam: Soft, Normal Bowel Sounds. absent: Tenderness Additional comments: superficial skin wound on anterior abd wall - Extremities Exam Extremities Exam: Normal Capillary Refill. absent: Pedal Edema - Back Exam Back Exam: rash noted - Neurological Exam Neurological Exam: Alert, Awake, CN II-XII Intact, Normal Gait, Oriented x3 - Psychiatric Exam Psychiatric exam: Normal Affect, Normal Mood - Skin Skin Exam: Dry, Intact, Normal Color, Warm Additional comments: skin wounds on anterior abdominal wall and right shoulder Assessment and Plan - Assessment and Plan (Free Text) Assessment: 58 y/o female with PMH of HTN, HLD, DM, Asthma, COPD, hypothyroidism, anxiety, depression, chronic pancreatitis presents to the ED with progressive SOB x3 days. Admitted for COPD exacerbation Plan: Acute COPD exacerbation: -solumedrol increased again to 40q8. Patient experienced respiratory distress last night -continue xopenex oliver[facility]/prn, pulmicort, singulair, O2 NC prn -started vancomycin -f/u Echo result -CXR: NAD -EKG:NSR @76bmp, no ST-T wave changes -patient advised to f/u with pulmonology outpatient for PFT. Last done 2017 -Pulmnology consulted, recs appreciated Superficial anterior abdominal/right shoulder skin wound: -wound cx: positive for MRSA -d/c levaquin -started vancomycin -topical mupirocin -wound care DM2: -continue levemir 40u bid -lispro 8u AC -ISS-high -accucheck -A1C 12.7 Left intertrigo: -one dose of diflucan po given -nystatin/triamcinolone cream started Right upper limb edema: -upper extremity US: negative for DVT -lidoderm patch for right shoulder pain -supportive care, elevate arm HTN: -continue home med atenolol, HCTZ, KCl 20 mg qd -continue lasix 40mg qd HLD: -continue home med simvastatin 40 -lipid profile: CHOL 225, LDL 153 Chronic pancreatitis: -continue home pancreatic enzymes -serum lipase 28 Vitamin D deficiency: -continue home med ergocalciferol q7d -low vit D level at 20 h/o thyroid nodules -TSH low at 0.28, normal free T4 -patient is following up with floating operator as o/p. Scheduled for thyroid US in 2 weeks -not on any meds PPX: -DVT: lovenx, SCD -GI: protonix -liquid diet -continue PT Case reviewed and plan discussed with attending Dr Ruiz Petit, DO <Jay Melchor - Last Filed: 02/24/19 13:32> Objective - Vital Signs/Intake and Output Vital Signs (last 24 hours): Temp Pulse Resp BP Pulse Ox 97.5 F L 71 18 142/77 97 02/24/19 06:00 02/24/19 06:00 02/24/19 06:00 02/24/19 09:56 02/24/19 06:00 Intake and Output: 02/24/19 02/24/19 06:59 18:59 Intake Total 2520 Balance 2520 - Medications Medications: Current Medications Albuterol/Ipratropium (Duoneb 3 Mg/0.5 Mg (3 Ml) Ud) 3 ml IH [id number] [facility] Albuterol/Ipratropium (Duoneb 3 Mg/0.5 Mg (3 Ml) Ud) 3 ml IH Q2 PRN PRN Reason: Shortness of Breath Atenolol (Tenormin) 25 mg PO DAILY [facility] Last Admin: 02/24/19 10:04 Dose: 25 mg Atorvastatin Calcium (Lipitor) 40 mg PO DAILY [facility] Last Admin: 02/24/19 10:02 Dose: 40 mg Benzocaine/Menthol (Cepacol Sore Throat) 1 yo MT Q2H PRN PRN Reason: Sore Throat Budesonide (Pulmicort Respules) 0.5 mg IH [id number] [facility] Dextrose (Dextrose 50% Inj) 0 ml IV STAT PRN; Protocol PRN Reason: Hypoglycemia Protocol Enoxaparin Sodium (Lovenox) 40 mg SC DAILY [facility]; Protocol Last Admin: 02/24/19 10:02 Dose: 40 mg Ergocalciferol (Drisdol 50,000 Intl Units Cap) 1 cap PO WED [facility] Last Admin: 02/22/19 10:03 Dose: 1 cap Furosemide (Lasix) 40 mg PO DAILY [facility] Last Admin: 02/24/19 09:56 Dose: 40 mg Guaifenesin/Codeine Phosphate (Robitussin W/Codeine) 5 ml PO BID [facility] Last Admin: 02/24/19 10:03 Dose: 5 ml Guaifenesin/Dextromethorphan (Robitussin Dm) 5 ml PO Q4H PRN PRN Reason: Cough Last Admin: 02/23/19 08:29 Dose: 5 ml Hydrochlorothiazide (Microzide) 12.5 mg PO DAILY [facility] Last Admin: 02/24/19 10:02 Dose: 12.5 mg Vancomycin HCl (Vancomycin 1gm) 1 gm in 250 mls @ 167 mls/hr IVPB Q12H [facility]; Protocol Last Admin: 02/24/19 12:20 Dose: 167 mls/hr Insulin Detemir (Levemir) 40 unit SC Q12 [facility] Last Admin: 02/24/19 10:01 Dose: 40 unit Insulin Human Lispro (Humalog) 8 units SC AC [facility] Last Admin: 02/24/19 12:20 Dose: 2 unit Insulin Human Regular (Humulin R High) 0 units SC ACHS [facility]; Protocol Last Admin: 02/24/19 12:19 Dose: 7 units Lidocaine (Lidoderm) 1 ea TD DAILY [facility] Last Admin: 02/24/19 10:02 Dose: 1 ea Methylprednisolone (Solu-Medrol) 40 mg IVP Q8 [facility] Montelukast Sodium (Singulair) 10 mg PO HS [facility] Last Admin: 02/23/19 21:20 Dose: 10 mg Mupirocin (Bactroban Ointment) 0 gm TOP BID [facility] Last Admin: 02/24/19 09:55 Dose: 1 appful Lipase/Protease/Amylase [Creon Dr 12 ,000 Units Capsule] 12,000 Mg (Home Med) 12,000 mg PO TID [facility] Last Admin: 02/24/19 10:02 Dose: Not Given Nystatin/Triamcinolone Acetonide (Nystatin/Triamcinolone Cream) 0 ea TOP BID [facility] Last Admin: 02/24/19 12:20 Dose: 1 applic Ondansetron HCl (Zofran Inj) 4 mg IVP Q4H PRN PRN Reason: Nausea/Vomiting Last Admin: 02/23/19 18:19 Dose: 4 mg Pantoprazole Sodium (Protonix Ec Tab) 40 mg PO 0600 [facility] Last Admin: 02/24/19 05:35 Dose: 40 mg Potassium Chloride (K-Dur 20 Meq Er Tab) 20 meq PO DAILY [facility] Last Admin: 02/24/19 09:55 Dose: 20 meq - Labs Labs: 02/23/19 06:00 02/23/19 06:00 Attending/Attestation - Attestation I have personally seen and examined this patient.: Yes I have fully participated in the care of the patient.: Yes I have reviewed all pertinent clinical information, including history, physical exam and plan: Yes Notes (Text): 02/24/19 13:27 Patient seen and examined with resident. Patient is alert and awake. Still complaining of shortness of breath, cough and wheezing. Patient had an episode of significant bronchospasm last night. Placed on Ventimask briefly. Currently on oxygen nasal cannula. Patient is placed on isolation for MRSA of abdominal wound. Patient is a 58-year-old female with PMH of hypertension, hyperlipidemia, diabetes, Asthma, COPD, anxiety, depression, chronic pancreatitis presents to the ED with progressive shortness of breath. 1. Acute COPD exacerbation; patient is currently on oxygen nasal cannula. Patient had episodes of significant bronchospasm last night. No significant stridor. Tachycardia is improving. Continue Xopenex, IV Solu-Medrol. Continue Brovana, Pulmicort and Singulair. Still with significant bronchospasm. Continue Xopenex treatment and IV steroids. Pulmonary evaluation appreciated. CT chest ordered. 2. Diabetes; continue Levemir. Dosage increased secondary to elevated blood sugar mostly due to steroids. Hemoglobin A1c is 12.7. Dietary education given. 3. Hypertension; continue Tenormin, hydrochlorthiazide. Echocardiogram done. results pending. 4. Chronic leg edema. Continue Lasix. Upper extremity Dopplers negative for DVT. 5. GI prophylaxis with Protonix. 6. DVT prophylaxis with subcu Lovenox. 7. MRSA wound infection of abdominal wall . Started on IV vancomycin. wound care evaluation appreciated. Contact precautions explained in detail. 8. Chronic pancreatitis; continue pancreatic enzyme supplementation. Patient currently does not have any diarrhea. 9. History of hypothyroidism; currently T4 is normal. TSH is low. Needs follow-up as outpatient. Currently not on supplementation. 10. Obesity; diet, exercise and weight reduction advised. Dietitian evaluation requested. Patient is ambulating. Upon discharge the patient will follow-up with PMD Dr. Hernandez. Patient needs close outpatient pulmonary follow-up for outpatient PFT/sleep study. Diagnosis, follow-up plan discussed with patient in detail. 02/24/19 13:30 02/24/19 13:31
--- NOTE | 2019-02-24 12:30 | CP.PCM.CON ---
History of Present Illness - History of Present Illness History of Present Illness: PULMONARY CONSULT NOTE HPI Patient is 58yo female with PMHx of HTN, HLD, DM, Asthma, COPD, never smoker, extensive exposure to second hand smoke, chronic pancreatitis, presented to the ER with SOB x3 days associated with productive cough with green/yellow sputum, chills. She denies fever, chest pain, palpitations. Pt reports she has chronic bronchitis, with productive chough. Pt notes that she is on symbicort, Albuterol, Singulair. Since admission pt reports she has felt slightly better, but not at baseline. Pt endorses 12lb weight gain over last 2 months. No other constitutional symptoms. Patient admits to recent sick grandchild with URI symptoms at home but denies recent travel, recent sickness Reports her pulmnologist Is Dr Daniel, last PFT 2-3 years ago. PMH: HTN, HLD, DM, Asthma, COPD, hypothyroidism, anxiety, depression, chronic pancreatitis PSH: left parotid gland tumor removal Meds: as per EMR All: PCN, gabapentin, SH: denies alcohol, smoking, drug use Review of Systems - Review of Systems Review of Systems: as per HPI Past Patient History - Infectious Disease Hx of Infectious Diseases: None - Tetanus Immunizations Tetanus Immunization: Unknown - Past Social History Smoking Status: Never Smoked - CARDIAC Hx Cardiac Disorders: No Hx Hypertension: Yes - PULMONARY Hx Chronic Obstructive Pulmonary Disease (COPD): Yes - NEUROLOGICAL Hx Neurological Disorder: No - HEENT Hx HEENT Problems: No - RENAL Hx Chronic Kidney Disease: No (Pt states she has had problems with her kidneys lately.) - ENDOCRINE/METABOLIC Hx Endocrine Disorders: Yes Hx Diabetes Mellitus Type 2: Yes Hx Hyperthyroidism: Yes - HEMATOLOGICAL/ONCOLOGICAL Hx Blood Disorders: No - INTEGUMENTARY Hx Dermatological Problems: No - MUSCULOSKELETAL/RHEUMATOLOGICAL Hx Musculoskeletal Disorders: No - GASTROINTESTINAL Hx Gastrointestinal Disorders: Yes (gastroparesis) Hx Pancreatitis: Yes (Chronic) - GENITOURINARY/GYNECOLOGICAL Hx Genitourinary Disorders: Yes (Fibroids) - PSYCHIATRIC Hx Psychophysiologic Disorder: Yes Hx Anxiety: Yes Hx Depression: Yes Hx Substance Use: No - SURGICAL HISTORY Hx Dilation and Curettage: Yes Other/Comment: 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 - ANESTHESIA Hx Anesthesia: Yes Hx Anesthesia Reactions: Yes Hx Malignant Hyperthermia: No Meds Allergies/Adverse Reactions: Allergies Allergy/AdvReac Type Severity Reaction Status Date / Time ketorolac tromethamine Allergy Mild pruritis Verified 02/24/17 16:12 [From Toradol] amoxicillin Allergy ITCHING Verified 02/24/17 16:12 EGG Allergy ITCHING Verified 02/24/17 16:12 gabapentin Allergy ITCHING Verified 02/24/17 16:12 latex Allergy RASH Verified 02/24/17 16:12 Sulfa (Sulfonamide Allergy ITCHING Verified 02/24/17 16:12 Antibiotics) - Medications Medications: Current Medications Arformoterol Tartrate (Brovana) 15 mcg IH [id number] [facility] Last Admin: 02/24/19 09:10 Dose: 15 mcg Atenolol (Tenormin) 25 mg PO DAILY [facility] Last Admin: 02/24/19 10:04 Dose: 25 mg Atorvastatin Calcium (Lipitor) 40 mg PO DAILY [facility] Last Admin: 02/24/19 10:02 Dose: 40 mg Benzocaine/Menthol (Cepacol Sore Throat) 1 yo MT Q2H PRN PRN Reason: Sore Throat Budesonide (Pulmicort Respules) 0.25 mg IH [id number] [facility] Last Admin: 02/24/19 09:10 Dose: 0.25 mg Dextrose (Dextrose 50% Inj) 0 ml IV STAT PRN; Protocol PRN Reason: Hypoglycemia Protocol Enoxaparin Sodium (Lovenox) 40 mg SC DAILY [facility]; Protocol Last Admin: 02/24/19 10:02 Dose: 40 mg Ergocalciferol (Drisdol 50,000 Intl Units Cap) 1 cap PO WED [facility] Last Admin: 02/22/19 10:03 Dose: 1 cap Furosemide (Lasix) 40 mg PO DAILY [facility] Last Admin: 02/24/19 09:56 Dose: 40 mg Guaifenesin/Codeine Phosphate (Robitussin W/Codeine) 5 ml PO BID [facility] Last Admin: 02/24/19 10:03 Dose: 5 ml Guaifenesin/Dextromethorphan (Robitussin Dm) 5 ml PO Q4H PRN PRN Reason: Cough Last Admin: 02/23/19 08:29 Dose: 5 ml Hydrochlorothiazide (Microzide) 12.5 mg PO DAILY [facility] Last Admin: 02/24/19 10:02 Dose: 12.5 mg Vancomycin HCl (Vancomycin 1gm) 1 gm in 250 mls @ 167 mls/hr IVPB Q12H [facility]; Protocol Insulin Detemir (Levemir) 40 unit SC Q12 [facility] Last Admin: 02/24/19 10:01 Dose: 40 unit Insulin Human Lispro (Humalog) 8 units SC AC [facility] Last Admin: 02/24/19 07:57 Dose: 8 unit Insulin Human Regular (Humulin R High) 0 units SC ACHS [facility]; Protocol Last Admin: 02/24/19 07:58 Dose: 10 units Levalbuterol HCl (Xopenex) 1.25 mg IH [id number] [facility] Last Admin: 02/24/19 09:11 Dose: 1.25 mg Levalbuterol HCl (Xopenex) 0.63 mg IH [id number] PRN PRN Reason: Shortness of Breath Last Admin: 02/23/19 18:35 Dose: 0.63 mg Lidocaine (Lidoderm) 1 ea TD DAILY [facility] Last Admin: 02/24/19 10:02 Dose: 1 ea Methylprednisolone (Solu-Medrol) 40 mg IVP Q8 [facility] Montelukast Sodium (Singulair) 10 mg PO HS [facility] Last Admin: 02/23/19 21:20 Dose: 10 mg Mupirocin (Bactroban Ointment) 0 gm TOP BID [facility] Last Admin: 02/24/19 09:55 Dose: 1 appful Lipase/Protease/Amylase [Creon Dr 12 ,000 Units Capsule] 12,000 Mg (Home Med) 1 2,000 mg PO TID [facility] Last Admin: 02/24/19 10:02 Dose: Not Given Nystatin/Triamcinolone Acetonide (Nystatin/Triamcinolone Cream) 0 ea TOP BID [facility] Ondansetron HCl (Zofran Inj) 4 mg IVP Q4H PRN PRN Reason: Nausea/Vomiting Last Admin: 02/23/19 18:19 Dose: 4 mg Pantoprazole Sodium (Protonix Ec Tab) 40 mg PO 0600 [facility] Last Admin: 02/24/19 05:35 Dose: 40 mg Potassium Chloride (K-Dur 20 Meq Er Tab) 20 meq PO DAILY [facility] Last Admin: 02/24/19 09:55 Dose: 20 meq Physical Exam - Constitutional Appears: Non-toxic, No Acute Distress - Head Exam Head Exam: NORMAL INSPECTION - Eye Exam Eye Exam: Normal appearance - ENT Exam ENT Exam: Mucous Membranes Moist - Respiratory Exam Respiratory Exam: Prolonged Expiratory Phase, Wheezes, NORMAL BREATHING PATTERN - Cardiovascular Exam Cardiovascular Exam: REGULAR RHYTHM, +S1, +S2 - GI/Abdominal Exam GI & Abdominal Exam: Normal Bowel Sounds, Soft - Neurological Exam Neurological exam: Alert, Oriented x3 - Psychiatric Exam Psychiatric exam: Normal Mood - Skin Skin Exam: Normal Color, Warm Results - Vital Signs Recent Vital Signs: Last Vital Signs Temp 97.5 F L 02/24/19 06:00 Pulse 71 02/24/19 06:00 Resp 18 02/24/19 06:00 BP 142/77 02/24/19 09:56 Pulse Ox 97 02/24/19 06:00 - Labs Result Diagrams: 02/23/19 06:00 02/23/19 06:00 Labs: Laboratory Results - last 24 hr 02/23/19 02/23/19 02/23/19 16:12 20:00 21:22 POC Glucose (mg/dL) 277 H 202 H Troponin I < 0.01 02/24/19 02/24/19 02/24/19 01:38 07:46 11:49 POC Glucose (mg/dL) 333 H 338 H 252 H Troponin I - Imaging and Cardiology Chest x-ray Status: Image reviewed by me, Report reviewed by me Assessment & Plan - Assessment and Plan (Free Text) Assessment: 58yo female with COPD/Asthma exacerbation COPD exacerbation SOB Obesity DM - currently afebrile, HD stable comfortable in NAD - on 2LNC, has end exp wheezing on exam - CXR without focal consolidation Recommend: - supp o2 as needed, goal sat 90%, - Dumaxi PRN, DC Bernarda - Start Pulmicort 0.5mg BID inh soln - Solumedrol 40mg IV TID - obtain CT chest without contrast - ECHO done, results pending - Abx, Levaquin 750mg daily - Singulair 10mg daily - will need outpt PFTs once exacerbation resolved - will need outpatient pulm follow up, Dr Daniel - outpt sleep study - GI ppx - DVT ppx Pulmonary will continue to follow
[2019-02-24] MEDS ORDERED: Iohexol 350 MG/100 ML VIAL ONE (14:26)
--- NOTE | 2019-02-24 15:36 | CARD ---
APPROVED REPORT Date of service: 02/24/2019 EXAM: Two-dimensional and M-mode echocardiogram with Doppler and color Doppler. INDICATION Dyspnea 2D DIMENSIONS Left Atrium (2D)4.5 (1.6-4.0cm)IVSd0.9 (0.7-1.1cm) LVDd5.3 (3.9-5.9cm)PWd1.2 (0.7-1.1cm) LVDs3.4 (2.5-4.0cm)FS (%) 36.1 % LVEF (%)65.3 (>50%) M-Mode DIMENSIONS Aortic Root3.40 (2.2-3.7cm)Aortic Cusp Exc.1.80 (1.5-2.0cm) Aortic Valve AoV Peak Dzvdkwxd004.0cm/Ronny Peak GR.17mmHgLVOT Peak Orqjbrpl881.0cm/s LVOT VTI34.30cm Mitral Valve MV E Xnrsrmlo859.0cm/sMV A Qusxpgxf701.0cm/sE/A ratio1.1 TDI Lateral E' Peak V9.55cm/sMedial E' Peak V7.12cm/sE/Lateral E'13.6 E/Medial E'18.3 Pulmonary Valve PV Peak Qkwjrvtp67.0cm/sPV Peak Grad.4mmHg Tricuspid Valve TR Peak Wxqxjjvf606nw/sRAP RCKJRGBS89zoIeYV Peak Gr.33mmHg OZEY85kfEr LEFT VENTRICLE The left ventricle is normal size. There is normal left ventricular wall thickness. The left ventricular function is normal. The left ventricular ejection fraction is within the normal range. There is normal LV segmental wall motion. The left ventricular diastolic function is normal. RIGHT VENTRICLE The right ventricle is normal size. There is normal right ventricular wall thickness. The right ventricular systolic function is normal. ATRIA The left atrium is mildly dilated. AORTIC VALVE The aortic valve is mildly thickened. There is trace aortic regurgitation. There is no aortic valvular stenosis. MITRAL VALVE The mitral valve is mildly thickened. Mitral regurgitation is mild. There is no mitral valve stenosis. TRICUSPID VALVE There is mild tricuspid regurgitation. There is mild pulmonary hypertension. PULMONIC VALVE There is mild pulmonic valvular regurgitation. GREAT VESSELS The aortic root is normal in size. The IVC is normal in size and collapses >50% with inspiration. PERICARDIAL EFFUSION There is no pericardial effusion. <Conclusion> The left ventricle is normal size. There is normal left ventricular wall thickness. The left ventricular function is normal. The left ventricular ejection fraction is within the normal range. There is normal LV segmental wall motion. The left atrium is mildly dilated. There is trace aortic regurgitation. Mitral regurgitation is mild. There is mild tricuspid regurgitation. There is mild pulmonary hypertension. There is mild pulmonic valvular regurgitation.
[2019-02-24] MEDS: Albuterol-Ipratrop 3 mg / 0.5 (3 ml) UD IH SCH ×3 (15:43→23:52)
--- NOTE | 2019-02-24 15:58 | CT ---
Date of service: 02/24/2019 PROCEDURE: CT Chest with contrast HISTORY: asthma, copd exacerbation COMPARISON: None available. TECHNIQUE: Contiguous axial images were obtained through the chest with intravenous contrast enhancement. Sagittal and coronal reconstructions were performed. IV contrast: Radiation dose: Total exam DLP = 1002.04 mGy-cm. This CT exam was performed using one or more of the following dose reduction techniques: Automated exposure control, adjustment of the mA and/or kV according to patient size, and/or use of iterative reconstruction technique. FINDINGS: LUNGS: Minimal subpleural thickening at the left base. MEDIASTINUM: Unremarkable thoracic aorta. No aneurysm or dissection. Normal sized heart. Main pulmonary artery unremarkable. No vascular congestion. No lymphadenopathy. No aortic atherosclerotic calcification or mural plaque present. PLEURA: No pleural fluid. No pneumothorax. BONES: No fracture. No destructive lesion. UPPER ABDOMEN: Fatty liver. OTHER FINDINGS: Small hiatal hernia. IMPRESSION: Minimal subpleural thickening at the left base.
--- NOTE | 2019-02-24 19:19 | CARD ---
APPROVED REPORT Date of service: 02/24/2019 EKG Measurement Heart [id number] 140P-5 [id number] <Conclusion> Normal sinus rhythm Cannot rule out Anterior infarct, age undetermined Abnormal ECG
[2019-02-24] MEDS: Budesonide 0.5 mg/2 ml Inhal Susp UD IH SCH (20:31)
[2019-02-25] MEDS: Vancomycin 1gm in NS 250ml 1 GM/250 ML BAG IVPB SCH ×4 (00:18→22:16)
[2019-02-25] MEDS: Albuterol-Ipratrop 3 mg / 0.5 (3 ml) UD IH SCH ×6 (03:14→23:22)
[2019-02-25] MEDS: Insulin Reg-HIGH-Coverage SC SCH ×4 (06:31→22:03)
[2019-02-25] MEDS: MethylPREDNISolone 40 mg Vial IVP SCH ×3 (06:49→22:16)
[2019-02-25] MEDS: Pantoprazole 40 mg EC Tab PO SCH (06:49)
[2019-02-25] MEDS: Budesonide 0.5 mg/2 ml Inhal Susp UD IH SCH ×2 (07:33→19:21)
[2019-02-25] MEDS: Insulin Lispro 1 UNITS/0.01 ML SC SCH ×4 (07:37→17:16)
[2019-02-25] MEDS: Potassium Chloride 20 mEq ER Tab PO SCH (09:26)
[2019-02-25] MEDS: Insulin Detemir 100 units/ml Vial (Levemir) SC SCH ×3 (09:28→22:15)
[2019-02-25] MEDS: Enoxaparin 40 mg Syringe SC SCH (09:28)
[2019-02-25] MEDS: guaiFENesin-Codeine 100-10mg/5ml Syrup (5 ml) UD PO SCH ×2 (09:29→17:12)
[2019-02-25] MEDS: Lidocaine 5% Patch TD SCH (09:29)
[2019-02-25] MEDS: LIPASE PO SCH ×3 (09:30→17:13)
[2019-02-25] MEDS: AMYLASE PO SCH ×3 (09:30→17:13)
[2019-02-25] MEDS: PROTEASE PO SCH ×3 (09:30→17:13)
[2019-02-25] MEDS: Nystatin-Triamcinolone Cream(30 gm) TOP SCH ×2 (09:31→17:13)
[2019-02-25] MEDS: Mupirocin 2% Ointment 15 GM TUBE TOP SCH ×2 (09:32→17:13)
--- NOTE | 2019-02-25 13:49 | CP.PCM.PN ---
<Gilmar Petit - Last Filed: 02/25/19 13:45> Subjective - Date & Time of Evaluation Date of Evaluation: 02/25/19 Time of Evaluation: 09:00 - Subjective Subjective: Gilmar Petit DO PGY1 Hospitalist Progress Note for Dr Shetty Patient seen and examined at bedside. She still reports SOB during the night requiring nebulizer treatment. Devon fever, chills, CP, palpitations. Objective - Vital Signs/Intake and Output Vital Signs (last 24 hours): Temp Pulse Resp BP Pulse Ox 98.6 F 69 18 124/65 95 02/25/19 07:00 02/25/19 07:00 02/25/19 07:00 02/25/19 09:26 02/25/19 12:18 Intake and Output: 02/25/19 02/25/19 06:59 18:59 Intake Total 180 Balance 180 - Medications Medications: Current Medications Albuterol/Ipratropium (Duoneb 3 Mg/0.5 Mg (3 Ml) Ud) 3 ml IH [id number] [facility] Last Admin: 02/25/19 11:27 Dose: 3 ml Albuterol/Ipratropium (Duoneb 3 Mg/0.5 Mg (3 Ml) Ud) 3 ml IH Q2 PRN PRN Reason: Shortness of Breath Atenolol (Tenormin) 25 mg PO DAILY [facility] Last Admin: 02/25/19 09:26 Dose: 25 mg Atorvastatin Calcium (Lipitor) 40 mg PO DAILY [facility] Last Admin: 02/25/19 09:26 Dose: 40 mg Benzocaine/Menthol (Cepacol Sore Throat) 1 yo MT Q2H PRN PRN Reason: Sore Throat Budesonide (Pulmicort Respules) 0.5 mg IH [id number] [facility] Last Admin: 02/25/19 07:33 Dose: 0.5 mg Dextrose (Dextrose 50% Inj) 0 ml IV STAT PRN; Protocol PRN Reason: Hypoglycemia Protocol Enoxaparin Sodium (Lovenox) 40 mg SC DAILY [facility]; Protocol Last Admin: 02/25/19 09:28 Dose: 40 mg Ergocalciferol (Drisdol 50,000 Intl Units Cap) 1 cap PO WED [facility] Last Admin: 02/22/19 10:03 Dose: 1 cap Furosemide (Lasix) 40 mg PO DAILY [facility] Last Admin: 02/25/19 09:26 Dose: 40 mg Guaifenesin/Codeine Phosphate (Robitussin W/Codeine) 5 ml PO BID [facility] Last Admin: 02/25/19 09:29 Dose: 5 ml Guaifenesin/Dextromethorphan (Robitussin Dm) 5 ml PO Q4H PRN PRN Reason: Cough Last Admin: 02/23/19 08:29 Dose: 5 ml Hydrochlorothiazide (Microzide) 12.5 mg PO DAILY [facility] Last Admin: 02/25/19 09:26 Dose: 12.5 mg Vancomycin HCl (Vancomycin 1gm) 1 gm in 250 mls @ 167 mls/hr IVPB Q12H [facility]; P rotocol Last Admin: 02/25/19 11:26 Dose: Not Given Insulin Detemir (Levemir) 45 unit SC Q12 [facility] Last Admin: 02/25/19 11:28 Dose: Not Given Insulin Human Lispro (Humalog) 10 units SC AC [facility] Last Admin: 02/25/19 11:39 Dose: 10 units Insulin Human Regular (Humulin R High) 0 units SC ACHS [facility]; Protocol Last Admin: 02/25/19 11:39 Dose: 10 units Lidocaine (Lidoderm) 1 ea TD DAILY [facility] Last Admin: 02/25/19 09:29 Dose: 1 ea Methylprednisolone (Solu-Medrol) 40 mg IVP Q8 [facility] Last Admin: 02/25/19 06:49 Dose: 40 mg Montelukast Sodium (Singulair) 10 mg PO HS [facility] Last Admin: 02/24/19 21:47 Dose: 10 mg Mupirocin (Bactroban Ointment) 0 gm TOP BID [facility] Last Admin: 02/25/19 09:32 Dose: 1 appful Lipase/Protease/Amylase [Creon Dr 12 ,000 Units Capsule] 12,000 Mg (Home Med) 12,000 mg PO TID [facility] Last Admin: 02/25/19 09:30 Dose: Not Given Nystatin/Triamcinolone Acetonide (Nystatin/Triamcinolone Cream) 0 ea TOP BID [facility] Last Admin: 02/25/19 09:31 Dose: 1 applic Ondansetron HCl (Zofran Inj) 4 mg IVP Q4H PRN PRN Reason: Nausea/Vomiting Last Admin: 02/25/19 07:40 Dose: 4 mg Pantoprazole Sodium (Protonix Ec Tab) 40 mg PO 0600 [facility] Last Admin: 02/25/19 06:49 Dose: 40 mg Potassium Chloride (K-Dur 20 Meq Er Tab) 20 meq PO DAILY [facility] Last Admin: 02/25/19 09:26 Dose: 20 meq - Labs Labs: 02/23/19 06:00 02/23/19 06:00 - Additional Findings Additional findings: - Constitutional Appears: Well, Non-toxic, No Acute Distress - Head Exam Head Exam: ATRAUMATIC, NORMAL INSPECTION, NORMOCEPHALIC - Eye Exam Eye Exam: EOMI, Normal appearance, PERRL Pupil Exam: NORMAL ACCOMODATION, PERRL - ENT Exam ENT Exam: Mucous Membranes Moist - Neck Exam Neck Exam: Normal Inspection - Respiratory Exam Respiratory Exam: Decreased Breath Sounds, Prolonged Expiratory Phase, Wheezes (b/l base. no change compared to yesterday) - Cardiovascular Exam Cardiovascular Exam: REGULAR RHYTHM, +S1, +S2. absent: JVD, RRR, Murmur - GI/Abdominal Exam GI & Abdominal Exam: Soft, Normal Bowel Sounds. absent: Tenderness Additional comments: superficial skin wound on anterior abd wall - Extremities Exam Extremities Exam: Normal Capillary Refill. absent: Pedal Edema - Back Exam Back Exam: rash noted - Neurological Exam Neurological Exam: Alert, Awake, CN II-XII Intact, Normal Gait, Oriented x3 - Psychiatric Exam Psychiatric exam: Normal Affect, Normal Mood - Skin Skin Exam: Dry, Intact, Normal Color, Warm Additional comments: skin wounds on anterior abdominal wall and right shoulder Assessment and Plan - Assessment and Plan (Free Text) Assessment: 58 y/o female with PMH of HTN, HLD, DM, Asthma, COPD, hypothyroidism, anxiety, depression, chronic pancreatitis. Admitted for COPD exacerbation Plan: Acute COPD exacerbation: -solumedrol tapered down to 30q8. -continue xopenex oliverio/prn, pulmicort, singulair, O2 NC prn -continue vancomycin -Echo: EF 65.3% PVSP 43mmHg, LV function normal, mild pulm-HTN, LA dilatation -CXR: NAD -EKG:NSR @76bmp, no ST-T wave changes -Pulmnology consulted, recommended outpatient for PFT DM2: -levemir increased to 45u bid -lispro increased to 10u AC -ISS-high -accucheck -A1C 12.7 Superficial anterior abdominal/right shoulder skin wound: -wound cx: positive for MRSA -continue vancomycin -topical mupirocin -wound care Left intertrigo: -one dose of diflucan po given -continue nystatin/triamcinolone cream Right upper limb edema: -upper extremity US: negative for DVT -lidoderm patch for right shoulder pain -supportive care, elevate arm HTN: -continue home med atenolol, HCTZ, KCl 20 mg qd -continue lasix 40mg qd HLD: -continue home med simvastatin 40 -lipid profile: CHOL 225, LDL 153 Chronic pancreatitis: -continue home pancreatic enzymes -serum lipase 28 Vitamin D deficiency: -continue home med ergocalciferol q7d -vit D 20 h/o thyroid nodules -TSH low at 0.28, normal free T4 -patient is following up with soap worker as o/p. Scheduled for thyroid US o/p -not on any meds PPX: -DVT: lovenx, SCD -GI: protonix -HHD -continue PT Case reviewed and plan discussed with attending Dr Sena Petit, DO <Yuri Shetty - Last Filed: 02/25/19 14:52> Objective - Vital Signs/Intake and Output Vital Signs (last 24 hours): Temp Pulse Resp BP Pulse Ox 98.6 F 69 18 124/65 95 02/25/19 07:00 02/25/19 07:00 02/25/19 07:00 02/25/19 09:26 02/25/19 12:18 Intake and Output: 02/25/19 02/25/19 06:59 18:59 Intake Total 180 Balance 180 - Medications Medications: Current Medications Albuterol/Ipratropium (Duoneb 3 Mg/0.5 Mg (3 Ml) Ud) 3 ml IH [id number] [facility] Last Admin: 02/25/19 11:27 Dose: 3 ml Albuterol/Ipratropium (Duoneb 3 Mg/0.5 Mg (3 Ml) Ud) 3 ml IH Q2 PRN PRN Reason: Shortness of Breath Atenolol (Tenormin) 25 mg PO DAILY [facility] Last Admin: 02/25/19 09:26 Dose: 25 mg Atorvastatin Calcium (Lipitor) 40 mg PO DAILY [facility] Last Admin: 02/25/19 09:26 Dose: 40 mg Benzocaine/Menthol (Cepacol Sore Throat) 1 yo MT Q2H PRN PRN Reason: Sore Throat Budesonide (Pulmicort Respules) 0.5 mg IH [id number] [facility] Last Admin: 02/25/19 07:33 Dose: 0.5 mg Dextrose (Dextrose 50% Inj) 0 ml IV STAT PRN; Protocol PRN Reason: Hypoglycemia Protocol Enoxaparin Sodium (Lovenox) 40 mg SC DAILY [facility]; Protocol Last Admin: 02/25/19 09:28 Dose: 40 mg Ergocalciferol (Drisdol 50,000 Intl Units Cap) 1 cap PO WED [facility] Last Admin: 02/22/19 10:03 Dose: 1 cap Furosemide (Lasix) 40 mg PO DAILY [facility] Last Admin: 02/25/19 09:26 Dose: 40 mg Guaifenesin/Codeine Phosphate (Robitussin W/Codeine) 5 ml PO BID [facility] Last Admin: 02/25/19 09:29 Dose: 5 ml Guaifenesin/Dextromethorphan (Robitussin Dm) 5 ml PO Q4H PRN PRN Reason: Cough Last Admin: 02/23/19 08:29 Dose: 5 ml Hydrochlorothiazide (Microzide) 12.5 mg PO DAILY [facility] Last Admin: 02/25/19 09:26 Dose: 12.5 mg Vancomycin HCl (Vancomycin 1gm) 1 gm in 250 mls @ 167 mls/hr IVPB Q12H [facility]; Protocol Last Admin: 02/25/19 11:26 Dose: Not Given Insulin Detemir (Levemir) 45 unit SC Q12 [facility] Last Admin: 02/25/19 11:28 Dose: Not Given Insulin Human Lispro (Humalog) 10 units SC AC [facility] Last Admin: 02/25/19 11:39 Dose: 10 units Insulin Human Regular (Humulin R High) 0 units SC ACHS [facility]; Protocol Last Admin: 02/25/19 11:39 Dose: 10 units Lidocaine (Lidoderm) 1 ea TD DAILY [facility] Last Admin: 02/25/19 09:29 Dose: 1 ea Methylprednisolone (Solu-Medrol) 30 mg IVP Q8 [facility] Last Admin: 02/25/19 14:20 Dose: 30 mg Montelukast Sodium (Singulair) 10 mg PO HS [facility] Last Admin: 02/24/19 21:47 Dose: 10 mg Mupirocin (Bactroban Ointment) 0 gm TOP BID [facility] Last Admin: 02/25/19 09:32 Dose: 1 appful Lipase/Protease/Amylase [Patriciaon Dr 12 ,000 Units Capsule] 12,000 Mg (Home Med) 12,000 mg PO TID [facility] Last Admin: 02/25/19 14:13 Dose: Not Given Nystatin/Triamcinolone Acetonide (Nystatin/Triamcinolone Cream) 0 ea TOP BID [facility] Last Admin: 02/25/19 09:31 Dose: 1 applic Ondansetron HCl (Zofran Inj) 4 mg IVP Q4H PRN PRN Reason: Nausea/Vomiting Last Admin: 02/25/19 07:40 Dose: 4 mg Pantoprazole Sodium (Protonix Ec Tab) 40 mg PO 0600 [facility] Last Admin: 02/25/19 06:49 Dose: 40 mg Potassium Chloride (K-Dur 20 Meq Er Tab) 20 meq PO DAILY [facility] Last Admin: 02/25/19 09:26 Dose: 20 meq - Labs Labs: 02/23/19 06:00 02/23/19 06:00 Attending/Attestation - Attestation I have personally seen and examined this patient.: Yes I have fully participated in the care of the patient.: Yes I have reviewed all pertinent clinical information, including history, physical exam and plan: Yes Notes (Text): 02/25/19 14:47 58 year old female with past medical history of hypertension, diabetes, COPD and depressin who presented with COPD exacerbation. She is currently on iv solumedrol 40 mg tid, xopenex, brovana, pulmicort and singulair. Reports wheezing is slightly improved today but still complains of cough. Will begin to taper steroids to 30 mg q8h. Pulmonary evaluation was appreciated. CT chest and echocardiogram were reviewed as above. She has been hyperglycemic secondary to iv steriods. Will increase her levemir and lispro dose today. She is also on iv vancomycin for MRSA abdominal wound infection. TSH was low with normal free T4. Recommended outpatient follow up and repeat TFTs. Counselled on weight loss, diet and exercise for obesity. Will need outpatient PFTs and sleep study upon discharge. Yuri Shetty MD Hospitalist. =
[2019-02-25] MEDS: Albuterol-Ipratrop 3 mg / 0.5 (3 ml) UD IH PRN (19:40)
[2019-02-25] MEDS ORDERED: POLYETHYLENE GLYCOL 3350 17 GM/Dose PACKET PO STA (22:51)
[2019-02-26] MEDS: Albuterol-Ipratrop 3 mg / 0.5 (3 ml) UD IH SCH ×5 (04:51→19:36)
[2019-02-26] MEDS: MethylPREDNISolone 40 mg Vial IVP SCH ×3 (05:19→21:52)
[2019-02-26] MEDS: Pantoprazole 40 mg EC Tab PO SCH (05:19)
[2019-02-26] MEDS: Insulin Reg-HIGH-Coverage SC SCH ×4 (06:40→22:18)
[2019-02-26] MEDS: Budesonide 0.5 mg/2 ml Inhal Susp UD IH SCH ×2 (07:28→19:36)
[2019-02-26 08:24] LABS: HEMOGLOBIN 13.9 g/dL (12.0-16.0); LYMPH # 0.8 (1.2-3.4); MEAN CELL VOLUME 82.8 fl (80.0-105.0); MEAN CORPUSCULAR HEMOGLOBIN 26.9 pg (25.0-35.0); MEAN CORPUSCULAR HGB CONC 32.5 g/dl (31.0-37.0); MEAN PLATELET VOLUME 11.1 fl (7.0-11.0); MONO # 0.3 (0.1-0.6); MONO % 3.5 % (1.0-6.0); RBC 5.17 10^6/uL (3.5-6.1); RED CELL DISTRIBUTION WIDTH 12.9 % (11.5-14.5); WHITE BLOOD COUNT 7.7 10^3/uL (4.5-11.0)
[2019-02-26] MEDS: Insulin Lispro 1 UNITS/0.01 ML SC SCH ×3 (08:40→17:28)
[2019-02-26] MEDS: Insulin Detemir 100 units/ml Vial (Levemir) SC SCH ×3 (08:42→21:53)
[2019-02-26 08:52] LABS: ALB/GLOB RATIO 1.3 (1.1-1.8); ALT/SGPT 11 U/L (7-56); AST/SGOT 16 U/L (14-36); BLOOD UREA NITROGEN 36 mg/dL (7-21); CALCIUM 9.4 mg/dL (8.4-10.5); GFR NON-AFRICAN AMERICAN > 60
[2019-02-26] MEDS: Vancomycin 1gm in NS 250ml 1 GM/250 ML BAG IVPB SCH ×3 (09:32→21:59)
[2019-02-26] MEDS: guaiFENesin-Codeine 100-10mg/5ml Syrup (5 ml) UD PO SCH ×2 (09:32→17:27)
[2019-02-26] MEDS: Potassium Chloride 20 mEq ER Tab PO SCH (09:33)
[2019-02-26] MEDS: Lidocaine 5% Patch TD SCH (09:34)
[2019-02-26] MEDS: LIPASE PO SCH ×3 (09:34→17:18)
[2019-02-26] MEDS: PROTEASE PO SCH ×3 (09:34→17:18)
[2019-02-26] MEDS: AMYLASE PO SCH ×3 (09:34→17:18)
[2019-02-26] MEDS: Enoxaparin 40 mg Syringe SC SCH (09:35)
[2019-02-26] MEDS: Mupirocin 2% Ointment 15 GM TUBE TOP SCH ×2 (09:36→17:28)
[2019-02-26] MEDS: Nystatin-Triamcinolone Cream(30 gm) TOP SCH ×2 (09:36→17:28)
--- NOTE | 2019-02-26 17:49 | CP.PCM.PN ---
Subjective - Date & Time of Evaluation Date of Evaluation: 02/26/19 Time of Evaluation: 16:00 - Subjective Subjective: patient says she is feeling "30% better" cough is better still sob at minimal exertion Objective - Vital Signs/Intake and Output Vital Signs (last 24 hours): Temp Pulse Resp BP Pulse Ox 99.1 F 68 18 146/73 95 02/26/19 14:00 02/26/19 14:00 02/26/19 14:00 02/26/19 14:00 02/26/19 14:00 Intake and Output: 02/26/19 02/26/19 06:59 18:59 Intake Total 620 810 Output Total 540 Balance 80 810 - Medications Medications: Current Medications Albuterol/Ipratropium (Duoneb 3 Mg/0.5 Mg (3 Ml) Ud) 3 ml IH [id number] [facility] Last Admin: 02/26/19 15:55 Dose: 3 ml Albuterol/Ipratropium (Duoneb 3 Mg/0.5 Mg (3 Ml) Ud) 3 ml IH Q2 PRN PRN Reason: Shortness of Breath Last Admin: 02/25/19 19:40 Dose: 3 ml Atenolol (Tenormin) 25 mg PO DAILY [facility] Last Admin: 02/26/19 09:33 Dose: 25 mg Atorvastatin Calcium (Lipitor) 40 mg PO DAILY [facility] Last Admin: 02/26/19 09:33 Dose: 40 mg Benzocaine/Menthol (Cepacol Sore Throat) 1 yo MT Q2H PRN PRN Reason: Sore Throat Budesonide (Pulmicort Respules) 0.5 mg IH [id number] [facility] Last Admin: 02/26/19 07:28 Dose: 0.5 mg Dextrose (Dextrose 50% Inj) 0 ml IV STAT PRN; Protocol PRN Reason: Hypoglycemia Protocol Enoxaparin Sodium (Lovenox) 40 mg SC DAILY [facility]; Protocol Last Admin: 02/26/19 09:35 Dose: 40 mg Ergocalciferol (Drisdol 50,000 Intl Units Cap) 1 cap PO WED [facility] Last Admin: 02/22/19 10:03 Dose: 1 cap Furosemide (Lasix) 40 mg PO DAILY [facility] Last Admin: 02/26/19 09:33 Dose: 40 mg Guaifenesin/Codeine Phosphate (Robitussin W/Codeine) 5 ml PO BID [facility] Last Admin: 02/26/19 17:27 Dose: 5 ml Guaifenesin/Dextromethorphan (Robitussin Dm) 5 ml PO Q4H PRN PRN Reason: Cough Last Admin: 02/23/19 08:29 Dose: 5 ml Hydrochlorothiazide (Microzide) 12.5 mg PO DAILY [facility] Last Admin: 02/26/19 09:33 Dose: 12.5 mg Vancomycin HCl (Vancomycin 1gm) 1 gm in 250 mls @ 167 mls/hr IVPB Q12H [facility]; Protocol Last Admin: 02/26/19 11:00 Dose: Not Given Insulin Detemir (Levemir) 45 unit SC Q12 [facility] Last Admin: 02/26/19 09:34 Dose: Not Given Insulin Human Lispro (Humalog) 10 units SC AC [facility] Last Admin: 02/26/19 17:28 Dose: 10 units Insulin Human Regular (Humulin R High) 0 units SC ACHS [facility]; Protocol Last Admin: 02/26/19 17:17 Dose: Not Given Lidocaine (Lidoderm) 1 ea TD DAILY [facility] Last Admin: 02/26/19 09:34 Dose: 1 ea Methylprednisolone (Solu-Medrol) 30 mg IVP Q8 [facility] Last Admin: 02/26/19 14:10 Dose: 30 mg Montelukast Sodium (Singulair) 10 mg PO HS [facility] Last Admin: 02/25/19 22:15 Dose: 10 mg Mupirocin (Bactroban Ointment) 0 gm TOP BID [facility] Last Admin: 02/26/19 17:28 Dose: 1 appful Lipase/Protease/Amylase [Creon Dr 12 ,000 Units Capsule] 12,000 Mg (Home Med) 12,000 mg PO TID [facility] Last Admin: 02/26/19 17:18 Dose: Not Given Nystatin/Triamcinolone Acetonide (Nystatin/Triamcinolone Cream) 0 ea TOP BID [facility] Last Admin: 02/26/19 17:28 Dose: 1 applic Ondansetron HCl (Zofran Inj) 4 mg IVP Q4H PRN PRN Reason: Nausea/Vomiting Last Admin: 02/25/19 07:40 Dose: 4 mg Pantoprazole Sodium (Protonix Ec Tab) 40 mg PO 0600 [facility] Last Admin: 02/26/19 05:19 Dose: 40 mg Potassium Chloride (K-Dur 20 Meq Er Tab) 20 meq PO DAILY [facility] Last Admin: 02/26/19 09:33 Dose: 20 meq - Labs Labs: 02/26/19 08:15 02/26/19 08:15 Addendum Addendum: 02/26/19 17:46 A/P 58F COPD/Asthma exacerbation Sat with her and her 2 daughters and discussed her case. They are focused on pulm HTN as being the main cause of everything however her RSVP has only been minimally elevated over 2 echos and I doubt it would cause this degree of SOB. I do not have access to any recent PFTs. CT and prior imaging reviewed. Recommend: - supp o2 as needed, goal sat 90%, - Duonebs PRN, - cont Pulmicort 0.5mg BID inh soln - Titatre down solumedrol to 30 q 12h - Abx, Levaquin 750mg daily - Singulair 10mg daily - will need outpt PFTs once exacerbation resolved - outpt sleep study - high suspicion for ANTONINA - GI ppx - DVT ppx Pulmonary will continue to follow
--- NOTE | 2019-02-26 19:21 | CP.PCM.PN ---
<Gilmar Petit - Last Filed: 02/26/19 22:07> Subjective - Date & Time of Evaluation Date of Evaluation: 02/26/19 Time of Evaluation: 08:30 - Subjective Subjective: Gilmar Petit DO PGY1 Hospitalist Progress Note for Dr Shetty Patient seen and examined at bedside. She reports improving SOB. [place] fever, chills, CP, palpitations. Objective - Vital Signs/Intake and Output Vital Signs (last 24 hours): Temp Pulse Resp BP Pulse Ox 99.1 F 68 18 146/73 95 02/26/19 14:00 02/26/19 14:00 02/26/19 14:00 02/26/19 14:00 02/26/19 14:00 Intake and Output: 02/26/19 02/27/19 18:59 06:59 Intake Total 810 Balance 810 - Medications Medications: Current Medications Albuterol/Ipratropium (Duoneb 3 Mg/0.5 Mg (3 Ml) Ud) 3 ml IH [id number] [facility] Last Admin: 02/26/19 15:55 Dose: 3 ml Albuterol/Ipratropium (Duoneb 3 Mg/0.5 Mg (3 Ml) Ud) 3 ml IH Q2 PRN PRN Reason: Shortness of Breath Last Admin: 02/25/19 19:40 Dose: 3 ml Atenolol (Tenormin) 25 mg PO DAILY [facility] Last Admin: 02/26/19 09:33 Dose: 25 mg Atorvastatin Calcium (Lipitor) 40 mg PO DAILY [facility] Last Admin: 02/26/19 09:33 Dose: 40 mg Benzocaine/Menthol (Cepacol Sore Throat) 1 yo MT Q2H PRN PRN Reason: Sore Throat Budesonide (Pulmicort Respules) 0.5 mg IH [id number] [facility] Last Admin: 02/26/19 07:28 Dose: 0.5 mg Dextrose (Dextrose 50% Inj) 0 ml IV STAT PRN; Protocol PRN Reason: Hypoglycemia Protocol Enoxaparin Sodium (Lovenox) 40 mg SC DAILY [facility]; Protocol Last Admin: 02/26/19 09:35 Dose: 40 mg Ergocalciferol (Drisdol 50,000 Intl Units Cap) 1 cap PO WED [facility] Last Admin: 02/22/19 10:03 Dose: 1 cap Furosemide (Lasix) 40 mg PO DAILY [facility] Last Admin: 02/26/19 09:33 Dose: 40 mg Guaifenesin/Codeine Phosphate (Robitussin W/Codeine) 5 ml PO BID [facility] Last Admin: 02/26/19 17:27 Dose: 5 ml Guaifenesin/Dextromethorphan (Robitussin Dm) 5 ml PO Q4H PRN PRN Reason: Cough Last Admin: 02/23/19 08:29 Dose: 5 ml Hydrochlorothiazide (Microzide) 12.5 mg PO DAILY [facility] Last Admin: 02/26/19 09:33 Dose: 12.5 mg Vancomycin HCl (Vancomycin 1gm) 1 gm in 250 mls @ 167 mls/hr IVPB Q12H [facility]; Protocol Last Admin: 02/26/19 11:00 Dose: Not Given Insulin Detemir (Levemir) 45 unit SC Q12 [facility] Last Admin: 02/26/19 09:34 Dose: Not Given Insulin Human Lispro (Humalog) 10 units SC AC [facility] Last Admin: 02/26/19 17:28 Dose: 10 units Insulin Human Regular (Humulin R High) 0 units SC ACHS [facility]; Protocol Last Admin: 02/26/19 17:17 Dose: Not Given Lidocaine (Lidoderm) 1 ea TD DAILY [facility] Last Admin: 02/26/19 09:34 Dose: 1 ea Methylprednisolone (Solu-Medrol) 30 mg IVP Q8 [facility] Last Admin: 02/26/19 14:10 Dose: 30 mg Montelukast Sodium (Singulair) 10 mg PO HS [facility] Last Admin: 02/25/19 22:15 Dose: 10 mg Mupirocin (Bactroban Ointment) 0 gm TOP BID [facility] Last Admin: 02/26/19 17:28 Dose: 1 appful Lipase/Protease/Amylase [Creon Dr 12 ,000 Units Capsule] 12,000 Mg (Home Med) 12,000 mg PO TID [facility] Last Admin: 02/26/19 17:18 Dose: Not Given Nystatin/Triamcinolone Acetonide (Nystatin/Triamcinolone Cream) 0 ea TOP BID [facility] Last Admin: 02/26/19 17:28 Dose: 1 applic Ondansetron HCl (Zofran Inj) 4 mg IVP Q4H PRN PRN Reason: Nausea/Vomiting Last Admin: 02/25/19 07:40 Dose: 4 mg Pantoprazole Sodium (Protonix Ec Tab) 40 mg PO 0600 [facility] Last Admin: 02/26/19 05:19 Dose: 40 mg Potassium Chloride (K-Dur 20 Meq Er Tab) 20 meq PO DAILY [facility] Last Admin: 02/26/19 09:33 Dose: 20 meq - Labs Labs: 02/26/19 08:15 02/26/19 08:15 - Additional Findings Additional findings: - Constitutional Appears: Well, Non-toxic, No Acute Distress - Head Exam Head Exam: ATRAUMATIC, NORMAL INSPECTION, NORMOCEPHALIC - Eye Exam Eye Exam: EOMI, Normal appearance, PERRL Pupil Exam: NORMAL ACCOMODATION, PERRL - ENT Exam ENT Exam: Mucous Membranes Moist - Neck Exam Neck Exam: Normal Inspection - Respiratory Exam Respiratory Exam: Decreased Breath Sounds, Prolonged Expiratory Phase, Wheezes (b/l base. no change compared to yesterday) - Cardiovascular Exam Cardiovascular Exam: REGULAR RHYTHM, +S1, +S2. absent: JVD, RRR, Murmur - GI/Abdominal Exam GI & Abdominal Exam: Soft, Normal Bowel Sounds. absent: Tenderness Additional comments: superficial skin wound on anterior abd wall - Extremities Exam Extremities Exam: Normal Capillary Refill. absent: Pedal Edema - Back Exam Back Exam: rash noted - Neurological Exam Neurological Exam: Alert, Awake, CN II-XII Intact, Normal Gait, Oriented x3 - Psychiatric Exam Psychiatric exam: Normal Affect, Normal Mood - Skin Skin Exam: Dry, Intact, Normal Color, Warm Additional comments: skin wounds on anterior abdominal wall and right shoulder Assessment and Plan - Assessment and Plan (Free Text) Assessment: 58 y/o female with PMH of HTN, HLD, DM, Asthma, COPD, hypothyroidism, anxiety, depression, chronic pancreatitis. Admitted for COPD exacerbation Plan: Acute COPD exacerbation: -solumedrol tapered down to 30q12 -continue xopenex o[facility]/prn, pulmicort, singulair, O2 NC prn -continue vancomycin -Echo: EF 65.3% PVSP 43mmHg, LV function normal, mild pulm-HTN, LA dilatation -CXR: NAD -EKG:NSR @76bmp, no ST-T wave changes -Pulmnology consulted, recommended outpatient for PFT and sleep study for ANTONINA DM2: -BG range 191-307 today in the setting of steroid use -continue levemir 45u bid -continue lispro 10u AC -ISS-high -accucheck -A1C 12.7 Superficial anterior abdominal/right shoulder skin wound: -wound cx: positive for MRSA -continue vancomycin -topical mupirocin -wound care Left intertrigo: -one dose of diflucan po given -continue nystatin/triamcinolone cream Right upper limb edema: -upper extremity US: negative for DVT -lidoderm patch for right shoulder pain -supportive care, elevate arm HTN: -continue home med atenolol, HCTZ, KCl 20 mg qd -continue lasix 40mg qd HLD: -continue home med simvastatin 40 -lipid profile: CHOL 225, LDL 153 Chronic pancreatitis: -continue home pancreatic enzymes -serum lipase 28 Vitamin D deficiency: -continue home med ergocalciferol q7d -vit D 20 h/o thyroid nodules -TSH low at 0.28, normal free T4 -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 Scheduled for thyroid US o/p -not on any meds PPX: -DVT: lovenx, SCD -GI: protonix -HHD -continue PT Case reviewed and plan discussed with attending Dr Sena Petit, <Yuri Shetty - Last Filed: 02/27/19 07:37> Objective - Vital Signs/Intake and Output Vital Signs (last 24 hours): Temp Pulse Resp BP Pulse Ox 98.3 F 69 18 136/81 96 02/26/19 21:02 02/26/19 21:02 02/26/19 21:02 02/26/19 21:02 02/26/19 21:02 Intake and Output: 02/27/19 02/27/19 06:59 18:59 Intake Total 660 Balance 660 - Medications Medications: Current Medications Albuterol/Ipratropium (Duoneb 3 Mg/0.5 Mg (3 Ml) Ud) 3 ml IH [id number] [facility] Last Admin: 02/27/19 07:15 Dose: 3 ml Albuterol/Ipratropium (Duoneb 3 Mg/0.5 Mg (3 Ml) Ud) 3 ml IH Q2 PRN PRN Reason: Shortness of Breath Last Admin: 02/27/19 01:15 Dose: 3 ml Atenolol (Tenormin) 25 mg PO DAILY [facility] Last Admin: 02/26/19 09:33 Dose: 25 mg Atorvastatin Calcium (Lipitor) 40 mg PO DAILY [facility] Last Admin: 02/26/19 09:33 Dose: 40 mg Benzocaine/Menthol (Cepacol Sore Throat) 1 yo MT Q2H PRN PRN Reason: Sore Throat Budesonide (Pulmicort Respules) 0.5 mg IH [id number] [facility] Last Admin: 02/27/19 07:15 Dose: 0.5 mg Dextrose (Dextrose 50% Inj) 0 ml IV STAT PRN; Protocol PRN Reason: Hypoglycemia Protocol Enoxaparin Sodium (Lovenox) 40 mg SC DAILY [facility]; Protocol Last Admin: 02/26/19 09:35 Dose: 40 mg Ergocalciferol (Drisdol 50,000 Intl Units Cap) 1 cap PO WED [facility] Last Admin: 02/22/19 10:03 Dose: 1 cap Furosemide (Lasix) 40 mg PO DAILY [facility] Last Admin: 02/26/19 09:33 Dose: 40 mg Guaifenesin/Codeine Phosphate (Robitussin W/Codeine) 5 ml PO BID [facility] Last Admin: 02/26/19 17:27 Dose: 5 ml Guaifenesin/Dextromethorphan (Robitussin Dm) 5 ml PO Q4H PRN PRN Reason: Cough Last Admin: 02/23/19 08:29 Dose: 5 ml Hydrochlorothiazide (Microzide) 12.5 mg PO DAILY [facility] Last Admin: 02/26/19 09:33 Dose: 12.5 mg Vancomycin HCl (Vancomycin 1gm) 1 gm in 250 mls @ 167 mls/hr IVPB Q12H [facility]; [facility] Last Admin: 02/26/19 21:59 Dose: 167 mls/hr Insulin Detemir (Levemir) 45 unit SC Q12 [facility] Last Admin: 02/26/19 21:53 Dose: 45 units Insulin Human Lispro (Humalog) 10 units SC AC [facility] Last Admin: 02/26/19 17:28 Dose: 10 units Insulin Human Regular (Humulin R High) 0 units SC ACHS [facility]; Protocol Last Admin: 02/26/19 22:18 Dose: Not Given Lidocaine (Lidoderm) 1 ea TD DAILY [facility] Last Admin: 02/26/19 09:34 Dose: 1 ea Methylprednisolone (Solu-Medrol) 30 mg IVP Q8 [facility] Last Admin: 02/27/19 05:31 Dose: 30 mg Montelukast Sodium (Singulair) 10 mg PO HS [facility] Last Admin: 02/26/19 21:53 Dose: 10 mg Mupirocin (Bactroban Ointment) 0 gm TOP BID [facility] Last Admin: 02/26/19 17:28 Dose: 1 appful Lipase/Protease/Amylase [Creon Dr 12 ,000 Units Capsule] 12,000 Mg (Home Med) 12,000 mg PO TID [facility] Last Admin: 02/26/19 17:18 Dose: Not Given Nystatin/Triamcinolone Acetonide (Nystatin/Triamcinolone Cream) 0 ea TOP BID [facility] Last Admin: 02/26/19 17:28 Dose: 1 applic Ondansetron HCl (Zofran Inj) 4 mg IVP Q4H PRN PRN Reason: Nausea/Vomiting Last Admin: 02/25/19 07:40 Dose: 4 mg Pantoprazole Sodium (Protonix Ec Tab) 40 mg PO 0600 [facility] Last Admin: 02/27/19 05:31 Dose: 40 mg Potassium Chloride (K-Dur 20 Meq Er Tab) 20 meq PO DAILY [facility] Last Admin: 02/26/19 09:33 Dose: 20 meq - Labs Labs: 02/27/19 06:40 02/27/19 06:40 Attending/Attestation - Attestation I have personally seen and examined this patient.: Yes I have fully participated in the care of the patient.: Yes I have reviewed all pertinent clinical information, including history, physical exam and plan: Yes Notes (Text): 02/26/19 58 year old female with past medical history of hypertension, diabetes, COPD and depression who presented with COPD exacerbation. She is currently on iv solumedrol, xopenex, brovana, pulmicort and singulair. O2 supplementation as needed. Will continue with steroids taper as her wheezing is slowly improving. However she still reports dyspnea on exertion; will need 6 minute walk test prior to discharge. Reports wheezing is slightly improved today but still complains of cough. Will begin to taper steroids to 30 mg q8h. Pulmonary is following; will need outpatient PFTs and sleep study upon discharge. She is on levemir and lispro for diabetes; doses were adjusted yesterday for hyperglycemia. She is also on iv vancomycin for MRSA abdominal wound infection. TSH was low with normal free T4. Recommended outpatient follow up and repeat TFTs. Counselled on weight loss, diet and exercise for obesity. Yuri Shetty MD Hospitalist.
[2019-02-27] MEDS: Albuterol-Ipratrop 3 mg / 0.5 (3 ml) UD IH SCH ×6 (01:02→18:56)
[2019-02-27] MEDS: Albuterol-Ipratrop 3 mg / 0.5 (3 ml) UD IH PRN ×2 (01:15→19:17)
[2019-02-27] MEDS ORDERED: Insulin Regular 1 UNITS/0.01 ML ML SC ONE (02:17)
[2019-02-27] MEDS: MethylPREDNISolone 40 mg Vial IVP SCH ×3 (05:31→21:43)
[2019-02-27] MEDS: Pantoprazole 40 mg EC Tab PO SCH (05:31)
[2019-02-27 07:02] LABS: EOS % 0.1 % (1.5-5.0); HEMOGLOBIN 14.1 g/dL (12.0-16.0); LYMPH # 1.1 (1.2-3.4); LYMPH % 11.2 % (22.0-35.0); MEAN CORPUSCULAR HGB CONC 32.6 g/dl (31.0-37.0); MONO # 0.6 (0.1-0.6); MONO % 6.3 % (1.0-6.0); RBC 5.22 10^6/uL (3.5-6.1); RED CELL DISTRIBUTION WIDTH 12.8 % (11.5-14.5); WHITE BLOOD COUNT 10.2 10^3/uL (4.5-11.0)
[2019-02-27] MEDS: Budesonide 0.5 mg/2 ml Inhal Susp UD IH SCH (07:15)
[2019-02-27 07:28] LABS: ALB/GLOB RATIO 1.3 (1.1-1.8); ALBUMIN 3.8 g/dL (3.0-4.8); ALT/SGPT 16 U/L (7-56); AST/SGOT 21 U/L (14-36); BLOOD UREA NITROGEN 30 mg/dL (7-21); CALCIUM 9.6 mg/dL (8.4-10.5); GFR NON-AFRICAN AMERICAN > 60
[2019-02-27] MEDS: Insulin Reg-HIGH-Coverage SC SCH ×3 (08:13→18:09)
[2019-02-27] MEDS: Insulin Lispro 1 UNITS/0.01 ML SC SCH ×3 (08:13→18:08)
[2019-02-27] MEDS: Potassium Chloride 20 mEq ER Tab PO SCH (10:20)
[2019-02-27] MEDS: Lidocaine 5% Patch TD SCH (10:20)
[2019-02-27] MEDS: Insulin Detemir 100 units/ml Vial (Levemir) SC SCH ×2 (10:21→21:45)
[2019-02-27] MEDS: AMYLASE PO SCH ×3 (10:25→18:04)
[2019-02-27] MEDS: LIPASE PO SCH ×3 (10:25→18:04)
[2019-02-27] MEDS: Mupirocin 2% Ointment 15 GM TUBE TOP SCH ×2 (10:25→18:10)
[2019-02-27] MEDS: Enoxaparin 40 mg Syringe SC SCH (10:25)
[2019-02-27] MEDS: PROTEASE PO SCH ×3 (10:25→18:04)
[2019-02-27] MEDS: Nystatin-Triamcinolone Cream(30 gm) TOP SCH ×2 (10:25→18:10)
[2019-02-27] MEDS: Vancomycin 1gm in NS 250ml 1 GM/250 ML BAG IVPB SCH ×3 (10:26→21:51)
[2019-02-27] MEDS: guaiFENesin-Codeine 100-10mg/5ml Syrup (5 ml) UD PO SCH ×2 (10:29→18:08)
--- NOTE | 2019-02-27 12:02 | CP.PCM.PN ---
<José Nails - Last Filed: 02/27/19 15:30> Subjective - Date & Time of Evaluation Date of Evaluation: 02/27/19 Time of Evaluation: 06:00 - Subjective Subjective: José Nails PG2 Medicine Note for Hospitalist Service Patient seen and examined bedside in AM. Patient reports episode of coughing and shortness of breath overnight. Overall she says her cough and SOB have improved. Denies chest pain, fever, chills, nausea, vomiting, abdominal pain or any other complaints at this time. Objective - Vital Signs/Intake and Output Vital Signs (last 24 hours): Temp Pulse Resp BP Pulse Ox 97.9 F 72 18 126/78 99 02/27/19 06:00 02/27/19 06:00 02/27/19 06:00 02/27/19 10:30 02/27/19 09:16 Intake and Output: 02/27/19 02/27/19 06:59 18:59 Intake Total 660 Balance 660 - Medications Medications: Current Medications Albuterol/Ipratropium (Duoneb 3 Mg/0.5 Mg (3 Ml) Ud) 3 ml IH [id number] [facility] Last Admin: 02/27/19 11:12 Dose: 3 ml Albuterol/Ipratropium (Duoneb 3 Mg/0.5 Mg (3 Ml) Ud) 3 ml IH Q2 PRN PRN Reason: Shortness of Breath Last Admin: 02/27/19 01:15 Dose: 3 ml Atenolol (Tenormin) 25 mg PO DAILY [facility] Last Admin: 02/27/19 10:30 Dose: 25 mg Atorvastatin Calcium (Lipitor) 40 mg PO DAILY [facility] Last Admin: 02/27/19 10:20 Dose: 40 mg Benzocaine/Menthol (Cepacol Sore Throat) 1 yo MT Q2H PRN PRN Reason: Sore Throat Budesonide (Pulmicort Respules) 0.5 mg IH [id number] [facility] Last Admin: 02/27/19 07:15 Dose: 0.5 mg Dextrose (Dextrose 50% Inj) 0 ml IV STAT PRN; Protocol PRN Reason: Hypoglycemia Protocol Enoxaparin Sodium (Lovenox) 40 mg SC DAILY [facility]; Protocol Last Admin: 02/27/19 10:25 Dose: 40 mg Ergocalciferol (Drisdol 50,000 Intl Units Cap) 1 cap PO WED [facility] Last Admin: 02/22/19 10:03 Dose: 1 cap Furosemide (Lasix) 40 mg PO DAILY [facility] Last Admin: 02/27/19 10:21 Dose: 40 mg Guaifenesin/Codeine Phosphate (Robitussin W/Codeine) 5 ml PO BID [facility] Last Admin: 02/27/19 10:29 Dose: 5 ml Guaifenesin/Dextromethorphan (Robitussin Dm) 5 ml PO Q4H PRN PRN Reason: Cough Last Admin: 02/23/19 08:29 Dose: 5 ml Hydrochlorothiazide (Microzide) 12.5 mg PO DAILY [facility] Last Admin: 02/27/19 10:21 Dose: 12.5 mg Insulin Detemir (Levemir) 45 unit SC Q12 [facility] Last Admin: 02/27/19 10:21 Dose: 45 units Insulin Human Lispro (Humalog) 10 units SC AC [facility] Last Admin: 02/27/19 08:13 Dose: 10 units Insulin Human Regular (Humulin R High) 0 units SC ACHS [facility]; Protocol Last Admin: 02/27/19 08:13 Dose: 7 units Lidocaine (Lidoderm) 1 ea TD DAILY [facility] Last Admin: 02/27/19 10:20 Dose: 1 ea Methylprednisolone (Solu-Medrol) 30 mg IVP Q12 [facility] Last Admin: 02/27/19 10:30 Dose: 30 mg Montelukast Sodium (Singulair) 10 mg PO HS [facility] Last Admin: 02/26/19 21:53 Dose: 10 mg Mupirocin (Bactroban Ointment) 0 gm TOP BID [facility] Last Admin: 02/27/19 10:25 Dose: 1 appful Lipase/Protease/Amylase [Creon Dr 12 ,000 Units Capsule] 12,000 Mg (Home Med) 12,000 mg PO TID [facility] Last Admin: 02/27/19 10:25 Dose: Not Given Nystatin/Triamcinolone Acetonide (Nystatin/Triamcinolone Cream) 0 ea TOP BID [facility] Last Admin: 02/27/19 10:25 Dose: 1 applic Ondansetron HCl (Zofran Inj) 4 mg IVP Q4H PRN PRN Reason: Nausea/Vomiting Last Admin: 02/25/19 07:40 Dose: 4 mg Pantoprazole Sodium (Protonix Ec Tab) 40 mg PO 0600 [facility] Last Admin: 02/27/19 05:31 Dose: 40 mg Potassium Chloride (K-Dur 20 Meq Er Tab) 20 meq PO DAILY [facility] Last Admin: 02/27/19 10:20 Dose: 20 meq - Labs Labs: 02/27/19 06:40 02/27/19 06:40 - Constitutional Appears: Non-toxic, No Acute Distress - Head Exam Head Exam: ATRAUMATIC, NORMAL INSPECTION, NORMOCEPHALIC - Eye Exam Eye Exam: EOMI, Normal appearance - ENT Exam ENT Exam: Mucous Membranes Moist - Respiratory Exam Respiratory Exam: Wheezes Additional comments: wheezing improved - Cardiovascular Exam Cardiovascular Exam: REGULAR RHYTHM, +S1, +S2 - GI/Abdominal Exam GI & Abdominal Exam: Soft. absent: Tenderness - Extremities Exam Extremities Exam: absent: Pedal Edema, Tenderness - Neurological Exam Neurological Exam: Alert, Awake, Oriented x3 Assessment and Plan - Assessment and Plan (Free Text) Assessment: 58 y/o female with PMH of HTN, HLD, DM, Asthma, COPD, hypothyroidism, anxiety, depression, chronic pancreatitis admitted for COPD exacerbation. Plan: COPD exacerbation -CXR negative -EKG:NSR @76bmp, no ST-T wave changes -solumedrol tapered down to 30q12, will taper to possible PO tomorrow -continue xopenex o[facility]/prn, pulmicort, singulair, O2 NC prn -Echo: EF 65.3% PVSP 43mmHg, LV function normal, mild pulm-HTN, LA dilatation -Pulmonology consulted, recommended outpatient for PFT and sleep study for ANTONINA -patient pending 6 minute walk test DM2 -A1C 12.7 -BG 309 today in the setting of steroid use -continue levemir 45u bid -continue lispro 10u AC -ISS-high -accucheck Superficial anterior abdominal/right shoulder skin wound -wound cx: positive for MRSA -continue vancomycin -topical mupirocin -wound care Left intertrigo -one dose of diflucan po given -continue nystatin/triamcinolone cream Right upper limb edema -upper extremity US: negative for DVT -lidoderm patch for right shoulder pain -supportive care, elevate arm HTN -continue home meds HLD -continue home med simvastatin -lipid profile: CHOL 225, LDL 153 Chronic pancreatitis -continue home pancreatic enzymes -serum lipase 28 Vitamin D deficiency -continue home med ergocalciferol q7d -vit D 20 h/o thyroid nodules -TSH low at 0.28, normal free T4 -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 Scheduled for thyroid US o/p -not on any meds PPX: -DVT: lovenx -GI: protonix -HHD -continue PT <Yuri Shetty A - Last Filed: 02/27/19 16:19> Objective - Vital Signs/Intake and Output Vital Signs (last 24 hours): Temp Pulse Resp BP Pulse Ox 98.1 F 71 20 118/63 94 L 02/27/19 14:00 02/27/19 14:00 02/27/19 14:00 02/27/19 14:00 02/27/19 14:00 Intake and Output: 02/27/19 02/27/19 06:59 18:59 Intake Total 660 600 Balance 660 600 - Medications Medications: Current Medications Albuterol/Ipratropium (Duoneb 3 Mg/0.5 Mg (3 Ml) Ud) 3 ml IH [id number] [facility] Last Admin: 02/27/19 15:36 Dose: 3 ml Albuterol/Ipratropium (Duoneb 3 Mg/0.5 Mg (3 Ml) Ud) 3 ml IH Q2 PRN PRN Reason: Shortness of Breath Last Admin: 02/27/19 01:15 Dose: 3 ml Atenolol (Tenormin) 25 mg PO DAILY [facility] Last Admin: 02/27/19 10:30 Dose: 25 mg Atorvastatin Calcium (Lipitor) 40 mg PO DAILY [facility] Last Admin: 02/27/19 10:20 Dose: 40 mg Benzocaine/Menthol (Cepacol Sore Throat) 1 yo MT Q2H PRN PRN Reason: Sore Throat Budesonide (Pulmicort Respules) 0.5 mg IH [id number] [facility] Last Admin: 02/27/19 07:15 Dose: 0.5 mg Dextrose (Dextrose 50% Inj) 0 ml IV STAT PRN; Protocol PRN Reason: Hypoglycemia Protocol Enoxaparin Sodium (Lovenox) 40 mg SC DAILY [facility]; Protocol Last Admin: 02/27/19 10:25 Dose: 40 mg Ergocalciferol (Drisdol 50,000 Intl Units Cap) 1 cap PO WED [facility] Last Admin: 02/22/19 10:03 Dose: 1 cap Furosemide (Lasix) 40 mg PO DAILY [facility] Last Admin: 02/27/19 10:21 Dose: 40 mg Guaifenesin/Codeine Phosphate (Robitussin W/Codeine) 5 ml PO BID [facility] Last Admin: 02/27/19 10:29 Dose: 5 ml Guaifenesin/Dextromethorphan (Robitussin Dm) 5 ml PO Q4H PRN PRN Reason: Cough Last Admin: 02/23/19 08:29 Dose: 5 ml Hydrochlorothiazide (Microzide) 12.5 mg PO DAILY [facility] Last Admin: 02/27/19 10:21 Dose: 12.5 mg Vancomycin HCl (Vancomycin 1gm) 1 gm in 250 mls @ 167 mls/hr IVPB Q12H [facility]; Protocol Insulin Detemir (Levemir) 45 unit SC Q12 [facility] Last Admin: 02/27/19 10:21 Dose: 45 units Insulin Human Lispro (Humalog) 10 units SC AC [facility] Last Admin: 02/27/19 13:26 Dose: 10 units Insulin Human Regular (Humulin R High) 0 units SC ACHS [facility]; Protocol Last Admin: 02/27/19 13:26 Dose: 10 units Lidocaine (Lidoderm) 1 ea TD DAILY [facility] Last Admin: 02/27/19 10:20 Dose: 1 ea Methylprednisolone (Solu-Medrol) 30 mg IVP Q12 [facility] Last Admin: 02/27/19 10:30 Dose: 30 mg Montelukast Sodium (Singulair) 10 mg PO HS [facility] Last Admin: 02/26/19 21:53 Dose: 10 mg Mupirocin (Bactroban Ointment) 0 gm TOP BID [facility] Last Admin: 02/27/19 10:25 Dose: 1 appful Lipase/Protease/Amylase [Creon Dr 12 ,000 Units Capsule] 12,000 Mg (Home Med) 12,000 mg PO TID [facility] Last Admin: 02/27/19 13:20 Dose: Not Given Nystatin/Triamcinolone Acetonide (Nystatin/Triamcinolone Cream) 0 ea TOP BID [facility] Last Admin: 02/27/19 10:25 Dose: 1 applic Ondansetron HCl (Zofran Inj) 4 mg IVP Q4H PRN PRN Reason: Nausea/Vomiting Last Admin: 02/25/19 07:40 Dose: 4 mg Pantoprazole Sodium (Protonix Ec Tab) 40 mg PO 0600 [facility] Last Admin: 02/27/19 05:31 Dose: 40 mg Potassium Chloride (K-Dur 20 Meq Er Tab) 20 meq PO DAILY [facility] Last Admin: 02/27/19 10:20 Dose: 20 meq - Labs Labs: 02/27/19 06:40 02/27/19 06:40 Attending/Attestation - Attestation I have personally seen and examined this patient.: Yes I have fully participated in the care of the patient.: Yes I have reviewed all pertinent clinical information, including history, physical exam and plan: Yes Notes (Text): 02/27/19 16:17 58 year old female with past medical history of hypertension, diabetes, COPD and depression who presented with COPD exacerbation. She is currently on iv solumedrol, xopenex, brovana, pulmicort and singulair. She passed 6 min walk test today; however still reported dyspnea on exertion. Her wheezing though has improved and her steroids were tapered to 30 mg iv bid. Likely can switch to po tomorrow for d/c planning. Pulmonary is following; will need outpatient PFTs and sleep study upon discharge. She is on levemir and lispro for diabetes; hyperglycemia secondary to iv steroids. She is also on iv vancomycin for MRSA abdominal wound infection. TSH was low with normal free T4. Recommended outpatient follow up and repeat TFTs. Counselled on weight loss, diet and exercise for obesity. Yuri Shetty MD Hospitalist.
[2019-02-27] MEDS: guaiFENesin DM 100 mg-10 mg/5 ml UD PO PRN (21:44)
[2019-02-28] MEDS: Albuterol-Ipratrop 3 mg / 0.5 (3 ml) UD IH SCH ×4 (01:22→11:36)
[2019-02-28] MEDS: Pantoprazole 40 mg EC Tab PO SCH (06:00)
[2019-02-28 07:21] LABS: EOS % 0.2 % (1.5-5.0); HEMOGLOBIN 14.6 g/dL (12.0-16.0); LYMPH # 2.3 (1.2-3.4); LYMPH % 19.7 % (22.0-35.0); MEAN CELL VOLUME 83.4 fl (80.0-105.0); MEAN CORPUSCULAR HEMOGLOBIN 26.6 pg (25.0-35.0); MEAN CORPUSCULAR HGB CONC 31.9 g/dl (31.0-37.0); MEAN PLATELET VOLUME 10.8 fl (7.0-11.0); MONO # 0.5 (0.1-0.6); MONO % 4.6 % (1.0-6.0); RBC 5.49 10^6/uL (3.5-6.1); RED CELL DISTRIBUTION WIDTH 12.8 % (11.5-14.5); WHITE BLOOD COUNT 11.6 10^3/uL (4.5-11.0)
[2019-02-28 07:39] LABS: ALB/GLOB RATIO 1.4 (1.1-1.8); ALT/SGPT 13 U/L (7-56); AST/SGOT 19 U/L (14-36); BLOOD UREA NITROGEN 33 mg/dL (7-21); CALCIUM 9.7 mg/dL (8.4-10.5); GFR NON-AFRICAN AMERICAN > 60
[2019-02-28] MEDS: Budesonide 0.5 mg/2 ml Inhal Susp UD IH SCH (07:49)
[2019-02-28] MEDS: Enoxaparin 40 mg Syringe SC SCH (11:46)
[2019-02-28] MEDS: MethylPREDNISolone 40 mg Vial IVP SCH (11:47)
[2019-02-28] MEDS: Potassium Chloride 20 mEq ER Tab PO SCH (11:47)
[2019-02-28] MEDS: Insulin Detemir 100 units/ml Vial (Levemir) SC SCH (11:48)
[2019-02-28] MEDS: Lidocaine 5% Patch TD SCH (11:50)
[2019-02-28] MEDS: Vancomycin 1gm in NS 250ml 1 GM/250 ML BAG IVPB SCH (11:51)
[2019-02-28] MEDS: guaiFENesin-Codeine 100-10mg/5ml Syrup (5 ml) UD PO SCH (12:03)
[2019-02-28] MEDS: AMYLASE PO SCH (12:04)
[2019-02-28] MEDS: PROTEASE PO SCH (12:04)
[2019-02-28] MEDS: LIPASE PO SCH (12:04)
[2019-02-28] MEDS: Nystatin-Triamcinolone Cream(30 gm) TOP SCH (12:16)
[2019-02-28 14:12] VITALS: BP 127/82; PULSE 74; RESP 22; TEMP 98.2; O2SAT 96
[2019-02-28] MEDS: Insulin Lispro 1 UNITS/0.01 ML SC SCH (15:41)
--- NOTE | 2019-02-28 15:48 | CP.PCM.DIS ---
<Santi Saeed - Last Filed: 02/28/19 15:40> Provider - Provider Date of Admission: 02/22/19 14:50 Attending physician: Yuri Shetty MD Consults: 02/21/19 20:22 Nursing Referral for Wound Care Routine Comment: Physician Instructions: Reason For Exam: impetigo on shoulder and stomach 02/21/19 23:02 Nursing Referral for Wound Care Routine Comment: Physician Instructions: Reason For Exam: abd wound 02/22/19 08:14 Diabetic Education Referral Routine Comment: Physician Instructions: Reason For Exam: uncontroled dm 02/22/19 15:03 Nursing Referral for Wound Care Routine Comment: Physician Instructions: Reason For Exam: shoulder and abdomen abrasion seen by wound care 02/24/19 10:58 Pulmonology Consult Routine Comment: Consulting Provider: Fernando Burgos Consulting Physician: Fernando Burgos Reason for Consult: asthma/copd exacerbation, not improving 02/28/19 11:37 Case Management Referral Routine Comment: Physician Instructions: Reason For Exam: please arrange for VNA/SN for medication and dise Reason for Referral: Discharge Planning Time Spent in preparation of Discharge (in minutes): 45 Hospital Course - Lab Results Lab Results: Micro Results 02/26/19 04:45 Sputum Gram Stain - Final 02/26/19 04:45 Sputum Sputum Culture - Final NORMAL ORAL GINNA 02/25/19 22:30 Naris MRSA Culture (Admit) - Final 02/21/19 23:08 Shoulder - Right Gram Stain - Final 02/21/19 23:08 Shoulder - Right Wound Culture - Final Methicillin Resistant S Aureus 02/21/19 23:08 Abdomen Gram Stain - Final 02/21/19 23:08 Abdomen Wound Culture - Final Methicillin Resistant S Aureus Most Recent Lab Values WBC 11.6 10^3/uL (4.5-11.0) H 02/28/19 07:10 RBC 5.49 10^6/uL (3.5-6.1) 02/28/19 07:10 Hgb 14.6 g/dL (12.0-16.0) 02/28/19 07:10 Hct 45.8 % (36.0-48.0) 02/28/19 07:10 MCV 83.4 fl (80.0-105.0) 02/28/19 07:10 MCH 26.6 pg (25.0-35.0) 02/28/19 07:10 MCHC 31.9 g/dl (31.0-37.0) 02/28/19 07:10 RDW 12.8 % (11.5-14.5) 02/28/19 07:10 Plt Count 236 10^3/uL (120.0-450.0) 02/28/19 07:10 MPV 10.8 fl (7.0-11.0) 02/28/19 07:10 Neut % (Auto) 75.5 % (50.0-68.0) H 02/28/19 07:10 Lymph % (Auto) 19.7 % (22.0-35.0) L 02/28/19 07:10 [place] % (Auto) 4.6 % (1.0-6.0) 02/28/19 07:10 Eos % (Auto) 0.2 % (1.5-5.0) L 02/28/19 07:10 Baso % (Auto) 0.0 % (0.0-3.0) 02/28/19 07:10 Lymph # (Auto) 2.3 (1.2-3.4) 02/28/19 07:10 [place] # (Auto) 0.5 (0.1-0.6) 02/28/19 07:10 Eos # (Auto) 0.0 (0.0-0.7) 02/28/19 07:10 Baso # (Auto) 0.00 K/mm3 (0.0-2.0) 02/28/19 07:10 Absolute Neuts (auto) 8.76 (1.4-6.5) H 02/28/19 07:10 Sodium 137 mmol/L (132-148) 02/28/19 07:10 Potassium 4.0 mmol/L (3.6-5.0) 02/28/19 07:10 Chloride 95 mmol/L (98-107) L 02/28/19 07:10 Carbon Dioxide 34 mmol/L (21-33) H 02/28/19 07:10 Anion Gap 12 (10-20) 02/28/19 07:10 BUN 33 mg/dL (7-21) H 02/28/19 07:10 Creatinine 0.6 mg/dl (0.7-1.2) L 02/28/19 07:10 Est GFR ( Amer) > 60 02/28/19 07:10 Est GFR (Non-Af Amer) > 60 02/28/19 07:10 POC Glucose (mg/dL) 239 mg/dL (65-110) H 02/28/19 11:39 Random Glucose 185 mg/dL (70-110) H 02/28/19 07:10 Hemoglobin A1c 12.7 % (4.2-6.5) H 02/22/19 08:12 Calcium 9.7 mg/dL (8.4-10.5) 02/28/19 07:10 Phosphorus 4.4 mg/dL (2.5-4.5) 02/28/19 07:10 Magnesium 2.2 mg/dL (1.7-2.2) 02/28/19 07:10 Total Bilirubin 0.6 mg/dL (0.2-1.3) 02/28/19 07:10 AST 19 U/L (14-36) 02/28/19 07:10 ALT 13 U/L (7-56) 02/28/19 07:10 Alkaline Phosphatase 68 U/L (38-126) 02/28/19 07:10 Troponin I < 0.01 ng/mL 02/23/19 20:00 Total Protein 6.9 g/dL (5.8-8.3) 02/28/19 07:10 Albumin 4.0 g/dL (3.0-4.8) 02/28/19 07:10 Globulin 2.9 gm/dL 02/28/19 07:10 Albumin/Globulin Ratio 1.4 (1.1-1.8) 02/28/19 07:10 Triglycerides 89 mg/dL (35-160) 02/22/19 06:00 Cholesterol 225 mg/dL (130-200) H 02/22/19 06:00 LDL Cholesterol Direct 153 mg/dL (0-129) H 02/22/19 06:00 HDL Cholesterol 49 mg/dL (29-60) 02/22/19 06:00 Lipase 28 U/L (23-300) 02/22/19 06:00 25-OH Vitamin D Total 20 ng/mL (30-100) L 02/22/19 06:00 Free T4 1.27 ng/dL (0.78-2.19) 02/22/19 08:23 TSH 3rd Generation 0.28 mIU/mL (0.46-4.68) L 02/22/19 06:00 - Hospital Course Hospital Course: 58 F with a PMhx of HTN, DM2, COPD and depression that presented to [facility] with complaints of shortness of breath COPD exacerbation. Patient was treated with IV solumedrol, xopenex, brovana, pulmicort and singulair, with good effect. Patient tolerated 6 min walk test today without complications, patient no longer wheezing, however has an intermittent productive cough. Chest XR negative for infiltrates. Patient with abdominal wound that is CDI, with bacitracin ointment, no discharge or oozing from site. Patient also on IV vancomycin for MRSA, will continue with PO doxycycline x 5 days. She is on levemir and lispro for diabetes control, labile hyperglycemia secondary to steroid therapy. Upon discharge, patient will follow up with Dr. Riggins within 1 week. She will need outpatient PFTs and sleep study upon discharge, with Dr. Daniel director semiconductor. Recommended outpatient follow up and repeat TFTs. Discharge Exam - Head Exam Head Exam: ATRAUMATIC, NORMAL INSPECTION, NORMOCEPHALIC - Eye Exam Eye Exam: EOMI, Normal appearance, PERRL Pupil Exam: NORMAL ACCOMODATION, PERRL - Respiratory Exam Respiratory Exam: NORMAL BREATHING PATTERN, UNREMARKABLE - Cardiovascular Exam Cardiovascular Exam: REGULAR RHYTHM, +S1, +S2 - GI/Abdominal Exam GI & Abdominal Exam: Normal Bowel Sounds, Unremarkable. absent: Tenderness Additional comments: wound dressed and no signs of infection or oozing from site - Neurological Exam Neurological exam: Alert, CN II-XII Intact, Normal Gait, Oriented x3, Reflexes Normal - Psychiatric Exam Psychiatric exam: Normal Affect, Normal Mood - Skin Skin Exam: Dry, Intact, Normal Color, Warm Discharge Plan - Discharge Medications Prescriptions: Albuterol HFA [Ventolin HFA 90 mcg/actuation (8 g)] 0.09 mg IH Q6 PRN 14 Days inhaler PRN Reason: Shortness Of Breath Atenolol [Tenormin] 25 mg PO DAILY #14 tab Atorvastatin [Lipitor] 40 mg PO DAILY #14 tab Budesonide [Pulmicort Respules] 0.5 mg IH [id number] 14 Days neb Doxycycline Hyclate 100 mg PO BID #10 capsule Furosemide [Lasix] 40 mg PO DAILY #14 tab hydroCHLOROthiazide [Microzide] 12.5 mg PO DAILY #14 cap Insulin Detemir [Levemir] 45 unit SC Q12 14 Days unit Insulin Lispro [humALOG] 10 units SC AC 14 Days ml Lidocaine 5% [Lidoderm] 1 ea TD DAILY 14 Days patch Methylprednisolone [Medrol Dose Pack (21 tabs)] See Taper PO DAILY #21 mg Montelukast [Singulair] 10 mg PO DAILY #14 tab Mupirocin 2% Ointment [Bactroban Ointment] 15 gm TOP BID #1 tube Nystatin/Triamcinolone [Nystatin/Triamcinolone Cream] 1 ea TOP BID #1 tube Pantoprazole [Protonix EC Tab] 40 mg PO 0600 #14 ect Potassium Chloride [K-Dur 20 mEq ER Tab] 20 meq PO DAILY #14 tab - Follow Up Plan Condition: FAIR Disposition: DISCHARGED TO HOME CARE Instructions: Asthma in Adults, Exacerbation of COPD Additional Instructions: 1. Patient is to follow up with Dr. Leo within 1-2 weeks 2. Patient is to follow up with Dr. Daniel within 1-2 weeks for outpatient PFTS 3. Patient is to be provided meds prior to discharge 4. Patient is to note new antibiotic course of doxycycline 100mg twice a day for 5 days 5. Patient is welcome to return to [facility] if symptoms change or worsen Referrals: Radha Hernandez MD [Family Provider] - Santosh Daniel MD [Staff Provider] - Silver Duarte MD [Staff Provider] - <Jay Melchor - Last Filed: 03/01/19 12:07> Provider - Provider Date of Admission: 02/22/19 14:50 Attending physician: Yuri Shetty MD Consults: 02/21/19 20:22 Nursing Referral for Wound Care Routine Comment: Physician Instructions: Reason For Exam: impetigo on shoulder and stomach 02/21/19 23:02 Nursing Referral for Wound Care Routine Comment: Physician Instructions: Reason For Exam: abd wound 02/22/19 08:14 Diabetic Education Referral Routine Comment: Physician Instructions: Reason For Exam: uncontroled dm 02/22/19 15:03 Nursing Referral for Wound Care Routine Comment: Physician Instructions: Reason For Exam: shoulder and abdomen abrasion seen by wound care 02/24/19 10:58 Pulmonology Consult Routine Comment: Consulting Provider: Fernando Burgos Consulting Physician: Fernando Burgos Reason for Consult: asthma/copd exacerbation, not improving 02/28/19 11:37 Case Management Referral Routine Comment: Physician Instructions: Reason For Exam: please arrange for VNA/SN for medication and dise Reason for Referral: Discharge Planning Hospital Course - Lab Results Lab Results: Micro Results 02/26/19 04:45 Sputum Gram Stain - Final 02/26/19 04:45 Sputum Sputum Culture - Final NORMAL ORAL GINNA 02/25/19 22:30 Naris MRSA Culture (Admit) - Final 02/21/19 23:08 Shoulder - Right Gram Stain - Final 02/21/19 23:08 Shoulder - Right Wound Culture - Final Methicillin Resistant S Aureus 02/21/19 23:08 Abdomen Gram Stain - Final 02/21/19 23:08 Abdomen Wound Culture - Final Methicillin Resistant S Aureus Most Recent Lab Values WBC 11.6 10^3/uL (4.5-11.0) H 02/28/19 07:10 RBC 5.49 10^6/uL (3.5-6.1) 02/28/19 07:10 Hgb 14.6 g/dL (12.0-16.0) 02/28/19 07:10 Hct 45.8 % (36.0-48.0) 02/28/19 07:10 MCV 83.4 fl (80.0-105.0) 02/28/19 07:10 MCH 26.6 pg (25.0-35.0) 02/28/19 07:10 MCHC 31.9 g/dl (31.0-37.0) 02/28/19 07:10 RDW 12.8 % (11.5-14.5) 02/28/19 07:10 Plt Count 236 10^3/uL (120.0-450.0) 02/28/19 07:10 MPV 10.8 fl (7.0-11.0) 02/28/19 07:10 Neut % (Auto) 75.5 % (50.0-68.0) H 02/28/19 07:10 Lymph % (Auto) 19.7 % (22.0-35.0) L 02/28/19 07:10 [place] % (Auto) 4.6 % (1.0-6.0) 02/28/19 07:10 Eos % (Auto) 0.2 % (1.5-5.0) L 02/28/19 07:10 Baso % (Auto) 0.0 % (0.0-3.0) 02/28/19 07:10 Lymph # (Auto) 2.3 (1.2-3.4) 02/28/19 07:10 [place] # (Auto) 0.5 (0.1-0.6) 02/28/19 07:10 Eos # (Auto) 0.0 (0.0-0.7) 02/28/19 07:10 Baso # (Auto) 0.00 K/mm3 (0.0-2.0) 02/28/19 07:10 Absolute Neuts (auto) 8.76 (1.4-6.5) H 02/28/19 07:10 Sodium 137 mmol/L (132-148) 02/28/19 07:10 Potassium 4.0 mmol/L (3.6-5.0) 02/28/19 07:10 Chloride 95 mmol/L (98-107) L 02/28/19 07:10 Carbon Dioxide 34 mmol/L (21-33) H 02/28/19 07:10 Anion Gap 12 (10-20) 02/28/19 07:10 BUN 33 mg/dL (7-21) H 02/28/19 07:10 Creatinine 0.6 mg/dl (0.7-1.2) L 02/28/19 07:10 Est GFR ( Amer) > 60 02/28/19 07:10 Est GFR (Non-Af Amer) > 60 02/28/19 07:10 POC Glucose (mg/dL) 239 mg/dL (65-110) H 02/28/19 11:39 Random Glucose 185 mg/dL (70-110) H 02/28/19 07:10 Hemoglobin A1c 12.7 % (4.2-6.5) H 02/22/19 08:12 Calcium 9.7 mg/dL (8.4-10.5) 02/28/19 07:10 Phosphorus 4.4 mg/dL (2.5-4.5) 02/28/19 07:10 Magnesium 2.2 mg/dL (1.7-2.2) 02/28/19 07:10 Total Bilirubin 0.6 mg/dL (0.2-1.3) 02/28/19 07:10 AST 19 U/L (14-36) 02/28/19 07:10 ALT 13 U/L (7-56) 02/28/19 07:10 Alkaline Phosphatase 68 U/L (38-126) 02/28/19 07:10 Troponin I < 0.01 ng/mL 02/23/19 20:00 Total Protein 6.9 g/dL (5.8-8.3) 02/28/19 07:10 Albumin 4.0 g/dL (3.0-4.8) 02/28/19 07:10 Globulin 2.9 gm/dL 02/28/19 07:10 Albumin/Globulin Ratio 1.4 (1.1-1.8) 02/28/19 07:10 Triglycerides 89 mg/dL (35-160) 02/22/19 06:00 Cholesterol 225 mg/dL (130-200) H 02/22/19 06:00 LDL Cholesterol Direct 153 mg/dL (0-129) H 02/22/19 06:00 HDL Cholesterol 49 mg/dL (29-60) 02/22/19 06:00 Lipase 28 U/L (23-300) 02/22/19 06:00 25-OH Vitamin D Total 20 ng/mL (30-100) L 02/22/19 06:00 Free T4 1.27 ng/dL (0.78-2.19) 02/22/19 08:23 TSH 3rd Generation 0.28 mIU/mL (0.46-4.68) L 02/22/19 06:00 Attending/Attestation - Attestation I have personally seen and examined this patient.: Yes I have fully participated in the care of the patient.: Yes I have reviewed all pertinent clinical information, including history, physical exam and plan: Yes Notes (Text): 03/01/19 11:45 Attending note; Patient seen and examined with resident. Patient is sitting in the chair. Not in any acute distress. Currently off oxygen. Still Complaining of Some Cough. Patient is a 58-year-old female with PMH of hypertension, hyperlipidemia, diabetes, Asthma, COPD, anxiety, depression, chronic pancreatitis presents to the ED with progressive shortness of breath. 1. Acute COPD exacerbation; patient is currently off oxygen nasal cannula. Treated with Xopenex, IV Solu-Medrol. Treated with Brovana, Pulmicort and Singulair. Significantly improved bronchospasm. Pulmonary evaluation appreciated. 2. Diabetes; continue Levemir. Dosage increased secondary to elevated blood sugar mostly due to steroids. Hemoglobin A1c is 12.7. Dietary education given. 3. Hypertension; continue Tenormin, hydrochlorthiazide. 4. Chronic leg edema. Continue Lasix. Upper extremity Dopplers negative for DVT. 5. MRSA Abdominal wall wound; secondary to insulin injection. wound is almost dry. Wound care evaluation appreciated. 6. Chronic pancreatitis; continue pancreatic enzyme supplementation. Patient currently does not have any diarrhea. PT evaluation appreciated. VNA services arranged by medical case manager. Upon discharge the patient will follow-up with PMD Dr. Hernandez. Patient needs close outpatient pulmonary follow-up for outpatient PFT. 03/01/19 12:07
== END 2019-02-28 15:36 | disposition home health service (06) | DRG 88 ==
LOC: ED 16:38 → ERH 18:37 → 3RNO 21:22 → OBSVTOIN 02-22 14:50 → 5RNO 02-24 20:09
PROVIDERS: ADMIT Internal Medicine; ATTEND Internal Medicine
PROC: 3E0F7GC Introduction of Other Therapeutic Substance into Respiratory Tract, Via Natural or Artificial Opening (ICD-10-PCS; principal; 2019-02-21)
DX: J44.1 Chronic obstructive pulmonary disease with (acute) exacerbation (principal); J45.901 Unspecified asthma with (acute) exacerbation; E11.65 Type 2 diabetes mellitus with hyperglycemia; E11.43 Type 2 diabetes mellitus with diabetic autonomic (poly)neuropathy; K31.84 Gastroparesis; E03.9 Hypothyroidism, unspecified; I10 Essential (primary) hypertension; E78.00 Pure hypercholesterolemia, unspecified; K86.1 Other chronic pancreatitis; E66.9 Obesity, unspecified; Z68.43 Body mass index [BMI] 50.0-59.9, adult; T38.0X5A Adverse effect of glucocorticoids and synthetic analogues, initial encounter; F41.9 Anxiety disorder, unspecified; E55.9 Vitamin D deficiency, unspecified; E78.5 Hyperlipidemia, unspecified; L08.9 Local infection of the skin and subcutaneous tissue, unspecified; B95.62 Methicillin resistant Staphylococcus aureus infection as the cause of diseases classified elsewhere